=== PATIENT | male | born 1940 | race Caucasian/White ===

== ENCOUNTER 2019-07-12 16:12 | Outpatient (CLI) | payer MEDICARE, SELFPAY ==
--- NOTE | ~2019-07-12 | XR_ITS ---
XR knee LT 3V DATE: 07/12/2019 16:53 INDICATION: Injury yesterday. Bucks a pop. Posterior left knee pain. TECHNIQUE: COMPARISON: None FINDINGS: IMPRESSION: Reviewed, dictated and finalized at location B. RR OPERATOR IMPRESSION:
== END 2019-07-12 16:13 | disposition home or self-care (01) ==
LOC: ANHIMG 16:19
PROVIDERS: PCP Internal Medicine; Visit Provider Internal Medicine
DX: S89.90XA Unspecified injury of unspecified lower leg, initial encounter (principal); X58.XXXA Exposure to other specified factors, initial encounter; M17.12 Unilateral primary osteoarthritis, left knee
CPT/HCPCS: 73562

== ENCOUNTER 2020-01-07 00:01 | Outpatient (CLI) | payer MEDICARE, SELFPAY ==
[2020-01-07 20:43] LABS: SARS-CoV-2 RNA PCR Negative
== END 2020-01-07 00:02 | disposition home or self-care (01) ==
LOC: ANHCOVIDDT 00:02
PROVIDERS: PCP Internal Medicine; Visit Provider Internal Medicine Gastroenterology
DX: Z01.818 Encounter for other preprocedural examination (principal); Z11.59 Encounter for screening for other viral diseases
CPT/HCPCS: 87635; C9803; U0003

== ENCOUNTER 2020-01-10 00:40 | Day surgery (SDC) | payer MEDICARE, SELFPAY ==
[2019-12-28 13:01] VITALS: BMI 23.8
[2020-01-10 06:25] VITALS: BP 132/68; PULSE 69; RESP 16; TEMP 36.3; O2SAT 97
[2020-01-10] MEDS: LACTATED RINGERS 1,000 ML 150 ML IV CONT (07:00)
--- NOTE | 2020-01-10 07:25 | WPDGICN ---
Assessment and Plan Assessment and plan (1) Dysphagia: Code(s): R13.10 - Dysphagia, unspecified Status: Acute Assessment and Plan: Patient complains difficulty swallowing. Solids more so than liquids. 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 Continuing anti-reflux measures and PPI is encouraged. (2) GERD without esophagitis: Code(s): K21.9 - Gastro-esophageal reflux disease without esophagitis Status: Acute GI Consult Note Consult date/time: 01/10/20 07:25 HPI: Marky Arroyo is a 79 year old male Seen in evaluation at the request of Dr. Eduardo Marin. patient complains of difficulty swallowing. He will notice food catching in mid substernal portion of the chest. It is typically solids more so than liquids he denies any bleeding or weight loss. He does have a past medical history of esophageal web dilated 2017. Patient currently denies any heartburn. His family history noncontributory. Current medications include omeprazole 20 mg p.o. daily. Past medical history is significant for atrial fibrillation. Review of Systems Review of Systems: All systems reviewed & are unremarkable except as noted in HPI and below PMFSH Past Medical History Medical History Bronchitis CHF (congestive heart failure) <35% Emphysema of lung Episode of anxiety GERD without esophagitis Heart disease, unspecified MARLENY (obstructive sleep apnea) Presence of cardiac pacemaker Pulmonary nodules Surgical History Surgical History History of arthroscopic knee surgery History of repair of rotator cuff Family History Family History Grandparent Family history of cardiovascular disease, Onset Age: 80 Cerebrovascular accident, Onset Age: 83 Family history of heart disease in male family member before age 55, Onset Age: 78 Mother Family history of cardiovascular disease, Onset Age: 96 Patient's mother is , Onset Age: 95 Family history of heart disease in male family member before age 55, Onset Age: 95 Father Cerebrovascular accident, Onset Age: 88 Family history of Alzheimer's disease, Onset Age: 87 Family history of heart disease in male family member before age 55, Onset Age: 87 Patient's father is , Onset Age: 87 Sibling Patient's sister is in good health Malignant neoplasm of prostate Patient's brother is Social History Social History Smoking status: Former smoker Second hand tobacco smoke exposure: No Smoking end date: 06/09/02 Alcohol intake: current Meds Home Medications and Allergies Home Medications Medication Instructions Recorded Confirmed Type albuterol sulfate 90 mcg/actuation 1 inhalation INHALATION .q4-6 PRN 06/28/19 01/10/20 History aerosol inhaler gm coenzyme Q10 100 mg capsule 100 mg PO DAILY 06/28/19 01/10/20 History tadalafil 20 mg tablet 20 mg PO DAILY PRN 06/28/19 01/10/20 History apixaban 5 mg tablet 5 mg PO BID 06/29/19 01/10/20 History omeprazole 20 mg PO DAILY 12/28/19 01/10/20 History Allergies Allergy/AdvReac Type Severity Reaction Status Date / Time diclofenac Allergy Unknown Diarrhea Verified 01/10/20 06:32 DICLOFENAC SODIUM AdvReac Severe SEVERE GI Uncoded 01/10/20 06:32 UPSET Exam Narrative: Exam Narrative: Physical exam reveals patient to be alert. Vital signs stable. HEENT exam unremarkable. Lungs are clear to auscultation and percussion. Heart is without murmur or extra sounds. Abdominal exam bowel sounds are present soft nontender with no hepatosplenomegaly. Digital external rectal exam deferred tod
[2020-01-10 07:37] VITALS: BP 145/85; PULSE 65; RESP 27; O2SAT 95
[2020-01-10 07:50] VITALS: BP 118/69; PULSE 61; RESP 22; O2SAT 96
[2020-01-10 07:57] VITALS: BP 132/79; PULSE 63; RESP 22; O2SAT 97
== END 2020-01-10 08:12 | disposition home or self-care (01) ==
PROVIDERS: PCP Internal Medicine; Visit Provider Internal Medicine Gastroenterology
PROC: 0DJ08ZZ Inspection of Upper Intestinal Tract, Via Natural or Artificial Opening Endoscopic (ICD-10-PCS; CPT 43235; principal; 2020-01-10 07:30)
DX: Q39.4 Esophageal web (principal); K21.9 Gastro-esophageal reflux disease without esophagitis; K44.9 Diaphragmatic hernia without obstruction or gangrene; I50.9 Heart failure, unspecified; J43.9 Emphysema, unspecified; G47.33 Obstructive sleep apnea (adult) (pediatric); Z87.891 Personal history of nicotine dependence; Z79.899 Other long term (current) drug therapy; Z79.51 Long term (current) use of inhaled steroids; Z95.0 Presence of cardiac pacemaker
CPT/HCPCS: 43450; J2704; J7120

== ENCOUNTER 2020-04-21 13:44 | Outpatient (CLI) | payer MEDICARE, SELFPAY ==
--- NOTE | ~2020-04-21 | DEXA_ITS ---
Bone Density Report Name: Marky Arroyo Age: 79 Sex: Male Ethnicity: White Date of : 1940 Indication: osteopenia; height loss; cancer; asthma or emphysema; Referring Provider: HERB LOU Study: Bone densitometry was performed. Exam Date: April 21, 2020 Accession number: [id number] Bone Density: Region BMD T-score Z-score Classification AP Spine (L2, L3) 1.086 -0.1 1.0 Normal Femoral Neck (Left) 0.662 -2.0 -0.5 Osteopenia Total Hip (Left) 0.733 -2.0 -1.0 Osteopenia Total Hip Bilateral Avg 0.746 -1.9 -0.9 Osteopenia Femoral Neck (Right) 0.639 -2.1 -0.6 Osteopenia Total Hip (Right) 0.758 -1.8 -0.8 Osteopenia World Health Organization criteria for BMD impression classify patients as: Normal (T-score at or above -1.0), Osteopenia (T-score between -1.0 and -2.5), or Osteoporosis (T-score at or below -2.5). 10-year Fracture Risk(1): Major Osteoporotic Fracture 9.0% Hip Fracture 3.7% Reported Risk Factors: [place] (), Neck BMD=0.639, BMI=23.2 (1) FRAX(R) Version 3.08. Fracture probability calculated for an untreated patient. Fracture probability may be lower if the patient has received treatment. Previous Exams: Region Exam Age BMD T-score BMD Change BMD Change Date g/cm2 vs Baseline vs Previous AP Spine(L2, L3) 04/21/2020 79 1.086 -0.1 -0.029(-2.6%)* -0.029(-2.6%)* 05/23/2015 74 1.115 0.2 Total Hip(Left) 04/21/2020 79 0.733 -2.0 -0.082(-10.1%) -0.082(-10.1%) 05/23/2015 74 0.815 -1.4 Total Hip(Right) 04/21/2020 79 0.758 -1.8 -0.018(-2.3%) -0.018(-2.3%) 05/23/2015 74 0.776 -1.7 *Denotes significance at 95% confidence level, LSC for AP Spine = 0.022 g/cm2, LSC for Total Hip = 0.027 g/cm2 Clinical Information Provided by Patient: Has used the following medications: Vitamin D Has the following medical conditions: Asthma or Emphysema, Cancer Patient maximum height was 71 Drinks caffeinated beverages Impression: The patient has low bone mass, based on the Right Femoral Neck T-score. The patient has an estimated ten-year risk of hip fracture of 3.7% and an estimated ten-year risk of major fracture of 9%, based on the WHO FRAX algorithm. The BMD for the AP Spine(L2, L3) decreased, changing by -2.6% since the last DXA exam. The BMD for the Total Hip(Left) decreased, changing by -10.1% since the last DXA exam. Discussion: BONE DENSITY IS LOW AT ONE OR MORE SKELETAL SITES. THE PATIENT'S BMD AND CLINICAL RISK FACTORS
== END 2020-04-21 13:45 | disposition home or self-care (01) ==
LOC: ANHIMG 13:48
PROVIDERS: PCP Internal Medicine; Visit Provider Internal Medicine
DX: M85.852 Other specified disorders of bone density and structure, left thigh (principal); M85.851 Other specified disorders of bone density and structure, right thigh
CPT/HCPCS: 77080

== ENCOUNTER 2020-04-26 16:59 | Outpatient (CLI) | payer MEDICARE, SELFPAY ==
--- NOTE | ~2020-04-26 | XR_ITS ---
EXAMINATION: XR knee LT 3V DATE: 04/26/2020 17:17 INDICATION: Nontraumatic posterior and medial left knee pain TECHNIQUE: Anteroposterior, 2 oblique and crosstable lateral views of the left knee were obtained COMPARISON: 07/12/2019 FINDINGS: Alignment is normal. No fracture. No joint effusion/layering lipohemarthrosis. There is at least mil d to moderate joint space narrowing at the medial compartment which could be underestimated on nonwei ghtbearing imaging. Small patellar marginal osteophytes as well as a tiny central osteophyte along th e apical ridge. Soft tissues are unremarkable. IMPRESSION: 1. 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 Reviewed, dictated and finalized at location H. STRATE JUDGE
== END 2020-04-26 17:00 | disposition home or self-care (01) ==
PROVIDERS: PCP Internal Medicine; Visit Provider Internal Medicine
DX: M17.12 Unilateral primary osteoarthritis, left knee (principal)
CPT/HCPCS: 73562

== ENCOUNTER 2020-06-19 00:54 | Outpatient (CLI) | payer MEDICARE, SELFPAY ==
[2020-06-19 19:06] LABS: SARS-CoV-2 RNA PCR Negative
== END 2020-06-19 00:55 | disposition home or self-care (01) ==
LOC: ANHCOVIDDT 00:54
PROVIDERS: PCP Internal Medicine; Visit Provider Surgery Plastic and Reconstructive Surgery
DX: Z01.812 Encounter for preprocedural laboratory examination (principal); Z20.822 Contact with and (suspected) exposure to COVID-19
CPT/HCPCS: C9803; U0003

== ENCOUNTER 2020-06-22 00:54 | Day surgery (SDC) | payer MEDICARE, SELFPAY ==
[2020-06-14 10:27] VITALS: BMI 23.8
[2020-06-22 09:12] VITALS: BP 132/102; PULSE 80; RESP 20; TEMP 37.1; O2SAT 98
[2020-06-22] MEDS: LACTATED RINGERS 1,000 ML 30 ML IV CONT (09:25)
--- NOTE | 2020-06-22 09:57 | WPDHPUPDATE1 ---
History and Physical Update Update Date/Time: 06/22/20 09:57 History and Physical has been reviewed, including an updated exam of the patient. There are NO changes in the patient's condition. Risks, benefits, and alternatives have been discussed and questions answered. Patient agrees to proceed with procedure.
--- NOTE | 2020-06-22 10:01 | WPDANESEPPF ---
Anes - Initial Pre Proc Eval Procedure: Operation Date: 06/22/20 11:00 Proposed Procedures p Excision Of Back Mass - Giancarlo Barahona MD Date/Time: 06/22/20 10:01 Surgeon: Giancarlo Barahona MD Pre Op Diagnosis: Back Mass Patient Data Age: 79 Gender: M Height: 5 ft 9 in Weight: 73 kg Allergies Allergy/AdvReac Type Severity Reaction Status Date / Time DICLOFENAC SODIUM AdvReac Severe SEVERE GI Uncoded 06/14/20 16:58 UPSET Home Medications Medication Instructions Recorded Confirmed Type albuterol sulfate 90 mcg/actuation 1 inhalation INHALATION .q4-6 PRN 06/28/19 06/14/20 History aerosol inhaler gm coenzyme Q10 100 mg capsule 100 mg PO DAILY 06/28/19 06/14/20 History tadalafil 20 mg tablet 20 mg PO DAILY PRN 06/28/19 06/14/20 History apixaban 5 mg tablet 5 mg PO BID 06/29/19 06/14/20 History omeprazole 20 mg PO DAILY 12/28/19 06/14/20 History ascorbic acid (vitamin C) 500 mg 500 mg PO BID cap 04/14/20 06/14/20 History capsule cholecalciferol (vitamin D3) 125 125 mcg PO BID 04/14/20 06/14/20 History mcg (5,000 unit) capsule krill oil 500 mg capsule 500 mg PO DAILY 04/14/20 06/14/20 History loratadine 10 mg tablet 10 mg PO DAILY 05/15/20 06/14/20 History acetaminophen 650 mg PO BID 06/14/20 06/14/20 History ondansetron HCl 4 mg tablet 4 mg PO Q6H PRN #30 tablet 06/14/20 Rx vitamin B complex [B 1 tablet PO EVERY OTHER DAY 06/14/20 06/14/20 History Complex-Vitamin B12] Patient hx anesthesia problems: none Family hx anesthesia problems: none PMFSH Past Medical History Medical History Bronchitis CHF (congestive heart failure) <35% Emphysema of lung Episode of anxiety GERD without esophagitis Heart disease, unspecified MARLENY (obstructive sleep apnea) Presence of cardiac pacemaker Pulmonary nodules Surgical History Surgical History History of arthroscopic knee surgery History of repair of rotator cuff Family History Family History Grandparent Family history of cardiovascular disease, Onset Age: 80 Cerebrovascular accident, Onset Age: 83 Family history of heart disease in male family member before age 55, Onset Age: 78 Mother Family history of cardiovascular disease, Onset Age: 96 Patient's mother is , Onset Age: 95 Family history of heart disease in male family member before age 55, Onset Age: 95 Father Cerebrovascular accident, Onset Age: 88 Family history of Alzheimer's disease, Onset Age: 87 Family history of heart disease in male family member before age 55, Onset Age: 87 Patient's father is , Onset Age: 87 Sibling Patient's sister is in good health Malignant neoplasm of prostate Patient's brother is Social History Social History Smoking packs per day: 1 Smoking cigarettes per day: 20.0 Years smoked: 50 Smoking pack-years: 50.00 Smoking status: Former smoker Tobacco type: cigarettes Second hand tobacco smoke exposure: No Smoking end date: 12/07/02 Alcohol intake: current Drinks per week: 1 Alcohol use details: 1 GLASS WINE/WEEK Substance use: never Living arrangements: with family Additional living arrangements comments: Spiritual care concerns: No Anes - Eval Final PreProcedure Day of Procedure 06/22/20 10:01 Patient weight: normal Heart: regular rate and rhythm Lungs: clear to auscultation Airway: Mallampati scale class II Neurological: alert and oriented Last oral intake: >/= 8 hours ASA classification: III Emergent: no Anesthetic plan: proceed Anesthesia type and monitoring: general GIVS and standard monitoring Informed Consent: The patient's anesthetic plan and its attendant risks and benefits were discussed with amrik
--- NOTE | 2020-06-22 10:05 | PM.PROC ---
Procedure Note - Detailed Date of procedure: 06/22/20 Pre-op diagnosis: Back Mass Post-op diagnosis: same Procedure performed: 1. Excision subcutaneous upper back mass 11 cm 2. Intermediate closure upper back cm Description of procedure: Patient was marked in the preoperative holding area with his verification. Risks, benefits, alternatives were discussed again today in great detail. Also discussed aftercare. All questions answered to his satisfaction and consent obtained. He was taken to the operating room placed in the lateral decubitus position on the operating room table. Anesthesia was provided by anesthesiology and he was prepped and draped in a standard sterile fashion. Surgical time-out was taken. 1% lidocaine and 0.25% Marcaine with epinephrine was used anesthetize locally. A 15 blade used to make an incision over the mass. Dissection was continued until it was identified incompletely removed under direct visualization with no evidence of neurovascular, tendon, or other structure injury. This was closed in many layers to obliterate all space using 2-0 Vicryl followed by 3-0 Monocryl in a running subcuticular 4-0 Monocryl and finally tissue glue. He tolerated well. Awoke and taken to the PACU without difficulty. All instrument sponge counts were correct at the end of the case. Anesthesia: MAC Surgeon: Giancarlo Barahona MD Estimated blood loss (mL): 5 Drains: No Packing: No Pathology: yes (Upper back mass) Complications: No immediate complications Condition: stable Disposition: PACU Findings: Clinical findings consistent with lipoma
[2020-06-22] MEDS: ceFAZolin 2 GM/D5W 50 ML 2 GM/50 ML BAG IVPB (10:08)
[2020-06-22 10:58] VITALS: BP 78/42; PULSE 61; RESP 14; O2SAT 96
[2020-06-22 11:28] VITALS: BP 85/48; PULSE 70; RESP 14; O2SAT 96
[2020-06-22 11:58] VITALS: BP 88/53; PULSE 59; RESP 14
[2020-06-22 12:15] VITALS: BP 103/55; PULSE 59; RESP 14
== END 2020-06-22 12:25 | disposition home or self-care (01) ==
PROVIDERS: PCP Internal Medicine; Visit Provider Surgery Plastic and Reconstructive Surgery
PROC: (CPT 21931; principal; 2020-06-22 11:00)
DX: D17.1 Benign lipomatous neoplasm of skin and subcutaneous tissue of trunk (principal); L82.1 Other seborrheic keratosis; I50.9 Heart failure, unspecified; J43.9 Emphysema, unspecified; K21.9 Gastro-esophageal reflux disease without esophagitis; G47.33 Obstructive sleep apnea (adult) (pediatric); Z95.0 Presence of cardiac pacemaker; Z79.01 Long term (current) use of anticoagulants; Z87.891 Personal history of nicotine dependence
CPT/HCPCS: 21931; 88304; C9803; J0690; J2704; J3010; J7120; U0003

== ENCOUNTER 2021-06-04 01:10 | Day surgery (SDC) | payer MEDICARE, SELFPAY ==
[2021-05-18 16:11] VITALS: BMI 23.8
[2021-06-04 08:30] VITALS: BP 138/81; PULSE 85; RESP 20; TEMP 36.2; O2SAT 98; BMI 22.0
[2021-06-04] MEDS: LACTATED RINGERS 1,000 ML 150 ML IV CONT (08:37)
--- NOTE | 2021-06-04 08:39 | WPDGICN ---
Assessment and Plan Assessment and plan (1) History of colon cancer: Code(s): Z85.038 - Personal history of other malignant neoplasm of large intestine Status: Acute Assessment and Plan: Patient with a history of colon cancer resected in treated felt cured. Plan is for surveillance colonoscopy every 3-5 years. Further recommendations after endoscopy. (2) GERD without esophagitis: Code(s): K21.9 - Gastro-esophageal reflux disease without esophagitis Status: Acute Assessment and Plan: Patient has stable GE reflux. Required esophageal dilatation 2019 1 year ago. Currently stable with no hindrance. Continue anti-reflux measures and acid suppression. GI Consult Note Consult date/time: 06/04/21 08:39 HPI: Marky Arroyo is a 80 year old male Presents for screening colonoscopy. Patient has a history of colon cancer initially identified in the year 1999. He currently is felt free of disease. Most recent colonoscopy was 3 years ago. Patient reports his current weight appetite bowel movements are normal. In 2019 had esophageal web that was benign and require dilatation. Currently eats well with no hindrance. He presents today for screening colonoscopy. Review of Systems Review of Systems: All systems reviewed & are unremarkable except as noted in HPI and below PMFSH Past Medical History Medical History Bronchitis CHF (congestive heart failure) <35% Emphysema of lung Episode of anxiety GERD without esophagitis Heart disease, unspecified MARLENY (obstructive sleep apnea) Presence of cardiac pacemaker Pulmonary nodules Surgical History Surgical History History of arthroscopic knee surgery History of repair of rotator cuff Family History Family History Grandparent Family history of cardiovascular disease, Onset Age: 80 Cerebrovascular accident, Onset Age: 83 Family history of heart disease in male family member before age 55, Onset Age: 78 Mother Family history of cardiovascular disease, Onset Age: 96 Patient's mother is , Onset Age: 95 Family history of heart disease in male family member before age 55, Onset Age: 95 Father Cerebrovascular accident, Onset Age: 88 Family history of Alzheimer's disease, Onset Age: 87 Family history of heart disease in male family member before age 55, Onset Age: 87 Patient's father is , Onset Age: 87 Sibling Patient's sister is in good health Malignant neoplasm of prostate Patient's brother is Social History Social History Smoking packs per day: 1 Smoking cigarettes per day: 20.0 Years smoked: 50 Smoking pack-years: 50.00 Smoking status: Former smoker Tobacco type: cigarettes Second hand tobacco smoke exposure: No Smoking end date: 12/07/02 Alcohol intake: current Drinks per week: 1 Alcohol use details: 1 GLASS WINE/WEEK Substance use: never Substance use type: does not use Living arrangements: with family Additional living arrangements comments: Spiritual care concerns: No Meds Home Medications and Allergies Home Medications Medication Instructions Recorded Confirmed Type coenzyme Q10 100 mg capsule 100 mg PO DAILY 06/28/19 05/18/21 History tadalafil 20 mg tablet 20 mg PO DAILY PRN 06/28/19 05/18/21 History apixaban 5 mg tablet 5 mg PO BID 06/29/19 05/18/21 History ascorbic acid (vitamin C) 500 mg 1,000 mg PO BID cap 04/14/20 05/18/21 History capsule krill oil 500 mg capsule 350 mg PO DAILY 04/14/20 05/18/21 History albuterol sulfate 90 mcg/actuation 1 inh INHALATION .q4-6 PRN #8.5 g 09/18/20 05/18/21 Rx aerosol inhaler vitamin B complex 1 tablet PO EVERY OTHER
--- NOTE | 2021-06-04 08:39 | WPDANESEPPF ---
Anes - Initial Pre Proc Eval Procedure: Operation Date: 06/04/21 09:30 Proposed Procedures p Screening Colonoscopy - Jaron Keating MD Date/Time: 06/04/21 08:39 Surgeon: Jaron Keating MD Pre Op Diagnosis: hx of colon ca Patient Data Age: 80 Gender: M Height: 1.75 m Weight: 67.8 kg Last Vital Signs Temp 36.2 C L 06/04/21 08:30 Pulse 85 06/04/21 08:30 Resp 20 06/04/21 08:30 BP 138/81 06/04/21 08:30 Pulse Ox 98 06/04/21 08:30 Allergies Allergy/AdvReac Type Severity Reaction Status Date / Time DICLOFENAC SODIUM AdvReac Severe SEVERE GI Uncoded 06/04/21 08:28 UPSET Home Medications Medication Instructions Recorded Confirmed Type coenzyme Q10 100 mg capsule 100 mg PO DAILY 06/28/19 05/18/21 History tadalafil 20 mg tablet 20 mg PO DAILY PRN 06/28/19 05/18/21 History apixaban 5 mg tablet 5 mg PO BID 06/29/19 05/18/21 History ascorbic acid (vitamin C) 500 mg 1,000 mg PO BID cap 04/14/20 05/18/21 History capsule krill oil 500 mg capsule 350 mg PO DAILY 04/14/20 05/18/21 History albuterol sulfate 90 mcg/actuation 1 inh INHALATION .q4-6 PRN #8.5 g 09/18/20 05/18/21 Rx aerosol inhaler vitamin B complex 1 tablet PO EVERY OTHER DAY 09/18/20 05/18/21 History cholecalciferol (vitamin D3) 125 125 mcg PO DAILY cap 10/24/20 05/18/21 History mcg (5,000 unit) capsule omeprazole 20 mg capsule,delayed 40 mg PO DAILY #30 cap 04/18/21 05/18/21 Rx release testosterone 20.25 mg/1.25 gram 1 pump TOPICAL DAILY #75 g 05/21/21 Rx (1.62 %) transdermal gel pump Patient hx anesthesia problems: none Family hx anesthesia problems: none Results Review: All pre-operative results and documents have been reviewed as part of the pre-operative evaluation. [facility] Past Medical History Medical History Bronchitis CHF (congestive heart failure) <35% Emphysema of lung Episode of anxiety GERD without esophagitis Heart disease, unspecified MARLENY (obstructive sleep apnea) Presence of cardiac pacemaker Pulmonary nodules Surgical History Surgical History History of arthroscopic knee surgery History of repair of rotator cuff Family History Family History Grandparent Family history of cardiovascular disease, Onset Age: 80 Cerebrovascular accident, Onset Age: 83 Family history of heart disease in male family member before age 55, Onset Age: 78 Mother Family history of cardiovascular disease, Onset Age: 96 Patient's mother is , Onset Age: 95 Family history of heart disease in male family member before age 55, Onset Age: 95 Father Cerebrovascular accident, Onset Age: 88 Family history of Alzheimer's disease, Onset Age: 87 Family history of heart disease in male family member before age 55, Onset Age: 87 Patient's father is , Onset Age: 87 Sibling Patient's sister is in good health Malignant neoplasm of prostate Patient's brother is Social History Social History Smoking packs per day: 1 Smoking cigarettes per day: 20.0 Years smoked: 50 Smoking pack-years: 50.00 Smoking status: Former smoker Tobacco type: cigarettes Second hand tobacco smoke exposure: No Smoking end date: 12/07/02 Alcohol intake: current Drinks per week: 1 Alcohol use details: 1 GLASS WINE/WEEK Substance use: never Substance use type: does not use Living arrangements: with family Additional living arrangements comments: Spiritual care concerns: No Anes - Eval Final PreProcedure Day of Procedure 06/04/21 08:39 Patient weight: normal Heart: regular rate and rhythm Lungs: clear to auscultation Airway: Mallampati scale class II Neurological: alert and oriented Last oral intake: >/
[2021-06-04 09:27] VITALS: BP 90/55; PULSE 74; RESP 20; O2SAT 99
[2021-06-04 09:37] VITALS: BP 98/60; PULSE 77; RESP 23; O2SAT 96
[2021-06-04 09:47] VITALS: BP 113/68; PULSE 78; RESP 15; O2SAT 97
== END 2021-06-04 10:13 | disposition home or self-care (01) ==
PROVIDERS: PCP Internal Medicine; Visit Provider Internal Medicine Gastroenterology
PROC: 0DJD8ZZ Inspection of Lower Intestinal Tract, Via Natural or Artificial Opening Endoscopic (ICD-10-PCS; CPT 45378; principal; 2021-06-04 09:30)
DX: Z12.11 Encounter for screening for malignant neoplasm of colon (principal); K63.5 Polyp of colon; K64.8 Other hemorrhoids; K57.30 Diverticulosis of large intestine without perforation or abscess without bleeding; Z98.0 Intestinal bypass and anastomosis status; Z90.49 Acquired absence of other specified parts of digestive tract; Z85.038 Personal history of other malignant neoplasm of large intestine; K21.9 Gastro-esophageal reflux disease without esophagitis; I50.9 Heart failure, unspecified; G47.33 Obstructive sleep apnea (adult) (pediatric); Z87.891 Personal history of nicotine dependence; Z79.01 Long term (current) use of anticoagulants; Z79.51 Long term (current) use of inhaled steroids
CPT/HCPCS: 45385; 88305; J2704; J7120

== ENCOUNTER 2022-06-03 12:30 | Emergency (ER) | payer MEDICARE, SELFPAY ==
--- NOTE | ~2022-06-03 | XR_ITS ---
EXAMINATION: XR chest 2V Exam Date/Time: 06/03/2022 15:18 HEALTH CARE TECHNICIAN HISTORY: cough with sob Comparison: 03/29/2019. RESULT: Lines, tubes, and devices: Left chest pacer with intact leads. Lungs and pleura: Senescent change. No focal consolidation, pneumothorax, or large effusion. Subtle infrahilar nodular opacity in the lateral view. Cardiomediastinal silhouette: Stable. Other: No acute osseous or upper abdominal finding. IMPRESSION: No acute cardiopulmonary process. Question of hilar lymphadenopathy, recommend nonemergent, but timel y outpatient CT of the chest without and with contrast for further evaluation. Reviewed, dictated and finalized at location K. TH CARE TECHNICIAN IMPRESSION: No acute cardiopulmonary process. Question of hilar lymphadenopathy, recommend nonemergent, but timely outpatient CT of the chest without and with contrast fo r further evaluation.
[2022-06-03 13:46] VITALS: BP 130/55; PULSE 77; RESP 18; TEMP 36.6; O2SAT 98
--- NOTE | 2022-06-03 15:17 | ED.URI ---
HPI - URI/Sore Throat General Chief Complaint: Upper Respiratory Infection Stated Complaint: cough,congestion Time Seen by Provider: 06/03/22 15:17 Source: patient Mode of arrival: ambulatory Limitations: no limitations History of Present Illness HPI Narrative: 81-year-old male presents with complaint of cough for 4-5 days. Afebrile. States otherwise feeling fine. Taking Tessalon Perles from his primary care physician with no relief. Prescription was called in over the phone. Patient did not see his doctor in the office. States I am use she is getting a Z-Alfie for the step to things to help me feel better . Denies chest pain shortness breath. States that he has a coughing fit and cough something up and Then can go several hours without coughing. All systems reviewed and negative except as noted above. Related Data Home Medications Medication Instructions Recorded Confirmed coenzyme Q10 100 mg capsule (Co 100 mg PO DAILY 06/28/19 06/03/22 Q-10) tadalafil 20 mg tablet (Cialis) 20 mg PO DAILY PRN Erectile 06/28/19 06/03/22 Dysfunction apixaban 5 mg tablet (Eliquis) 5 mg PO BID 06/29/19 06/03/22 ascorbic acid (vitamin C) 500 mg 1,000 mg PO BID 04/14/20 06/03/22 capsule krill oil 500 mg capsule 350 mg PO DAILY 04/14/20 06/03/22 vitamin B complex (B 1 tablet PO EVERY OTHER DAY 09/18/20 06/03/22 Complex-Vitamin B12 tablet) cholecalciferol (vitamin D3) 125 125 mcg PO DAILY 10/24/20 06/03/22 mcg (5,000 unit) capsule Allergies Allergy/AdvReac Type Severity Reaction Status Date / Time DICLOFENAC SODIUM AdvReac Severe SEVERE GI Uncoded 06/03/22 15:10 UPSET Review of Systems Review of Systems: CONSTITUTIONAL: Denies fever, chills, or sweats. EYES: Denies visual changes, redness, or discharge. ENT: Denies rhinorrhea, congestion, sore throat, or otalgia. CARDIOVASCULAR: Denies chest pain, palpitations, or edema. RESPIRATORY: Reports cough. Denies dyspnea. GASTROINTESTINAL: Denies abdominal pain, nausea, vomiting, or diarrhea. GENITOURINARY: Denies dysuria or hematuria. SKIN: Denies rash or itching. MUSCULOSKELETAL: Denies back pain, joint pain, or myalgia. NEUROLOGIC: Denies headache, numbness, or weakness. PSYCHIATRIC: Denies anxiety or depression. All other systems reviewed are negative, except as documented in HPI. [facility] Past Medical History Medical History (Updated 06/03/22 @ 16:00 by Ramona Vincent NP) Bronchitis CHF (congestive heart failure) <35% Emphysema of lung Episode of anxiety GERD without esophagitis Heart disease, unspecified MARLENY (obstructive sleep apnea) Presence of cardiac pacemaker Pulmonary nodules SVT (supraventricular tachycardia) TIA (transient ischemic attack) Surgical History Surgical History History of arthroscopic knee surgery History of repair of rotator cuff Family History Family History Grandparent Family history of cardiovascular disease, Onset Age: 80 Cerebrovascular accident, Onset Age: 83 Family history of heart disease in male family member before age 55, Onset Age: 78 Mother Family history of cardiovascular disease, Onset Age: 96 Patient's mother is , Onset Age: 95 Family history of heart disease in male family member before age 55, Onset Age: 95 Father Cerebrovascular accident, Onset Age: 88 Family history of Alzheimer's disease, Onset Age: 87 Family history of heart disease in male family member before age 55, Onset Age: 87 Patient's father is , Onset Age: 87 Sibling Patient's sister is in good health Malignant neoplasm of prostate Patient's brother is Social History Social History Smoking packs per day: 1 Smoking cigarettes per day: 20.0 Years smoked: 50 Smoking pack-years: 5
== END 2022-06-03 16:02 | disposition home or self-care (01) ==
PROVIDERS: Emergency Provider Nurse Practitioner Family; PCP Internal Medicine
DX: J06.9 Acute upper respiratory infection, unspecified (principal); Z87.891 Personal history of nicotine dependence; K21.9 Gastro-esophageal reflux disease without esophagitis; Z95.0 Presence of cardiac pacemaker; Z86.73 Personal history of transient ischemic attack (TIA), and cerebral infarction without residual deficits; I50.9 Heart failure, unspecified
CPT/HCPCS: 71046; 99213; G0463

== ENCOUNTER 2022-06-21 09:47 | Outpatient (CLI) | payer MEDICARE, SELFPAY ==
--- NOTE | ~2022-06-21 | CT_ITS ---
EXAMINATION: CT diagnostic chest w con DATE: 06/21/2022 10:21 INDICATION: Abnormal chest radiograph TECHNIQUE: Transaxial computed tomographic images of the chest were obtained after the administration of 75 cc of Omnipaque 350 intravenous contrast. The dose-length product (DLP) was 201.10 mGy-cm. Ite rative reconstruction was used. COMPARISON: 07/29/2017 FINDINGS: There is moderate emphysema. No suspicious CT correlate is identified for the questionable hilar fullness described on the chest radiograph. No pathologically enlarged thoracic lymph nodes are identified. The heart size is normal. There is calcified coronary artery atherosclerosis. No pleural effusion or pneumothorax. The gallbladder is surgically absent. There is severe lower cervical and l ower thoracic spondylosis. A dual-lead pacemaker of the left chest wall is noted. IMPRESSION: 1. No suspicious correlate for the hilar lymphadenopathy questioned on recent chest radiograph. 2. Moderate emphysema. Reviewed, dictated and finalized at location B. S LINED TANK REPAIRER IMPRESSION: 1. No suspicious correlate for the hilar lymphadenopathy questioned on recent c hest radiograph. 2. Moderate emphysema.
[2022-06-21 10:17] LABS: Estimated Glomerular Filt Rate 49
== END 2022-06-21 09:48 | disposition home or self-care (01) ==
PROVIDERS: PCP Internal Medicine; Visit Provider Internal Medicine
DX: R93.89 Abnormal findings on diagnostic imaging of other specified body structures (principal); J43.9 Emphysema, unspecified
CPT/HCPCS: 71260; Q9967

== ENCOUNTER 2023-02-02 21:49 | Observation (INO) | payer MEDICARE, SELFPAY ==
--- NOTE | ~2023-02-02 | XR_ITS ---
Clinical Indication: Shortness of breath AP and lateral views of the chest: Comparison: 06/03/2022 Findings: The lungs are clear, without evidence of focal consolidation or pleural effusion. Cardiome diastinal silhouette is stable, with pacemaker device. Bones and soft tissues are unremarkable. Impression: Clear lungs. Pacemaker device. Reviewed, dictated and finalized at location . Impression: Clear lungs. Pacemaker device.
[2023-02-02 21:50] VITALS: BP 164/74; PULSE 75; RESP 22; TEMP 36.3; O2SAT 99
--- NOTE | 2023-02-02 21:53 | ECG_ITS ---
Measurements Intervals [place] Rate: 64 P: CT: 0 QRS: -74 QRSD: 153 T: 101 QT: 411 QTc: 425 Interpretive Statements ATRIAL FLUTTER WITH OCCASIONALELECTRONIC VENTRICULAR PACEMAKER RIGHT BUNDLE BRANCH BLOCK ABNORMAL RHYTHM ECG COMPARED TO ECG 02/01/2019 14:17:23 NO SIGNIFICANT CHANGES Electronically Signed On 02-03-2023 12:00:16 CDT by Artie Moss M.D.
[2023-02-02 22:06] VITALS: PULSE 62; RESP 20; O2SAT 96
[2023-02-02 22:16] LABS: Basophils Percent Auto 0.3 % (0.2-1.2); Eosinophils Absolute Auto 0.2 K/mm3 (0-0.3); Eosinophils Percent Auto 2.4 % (0-4.4); Hematocrit 45.2 % (42.0-52.0); Hemoglobin 15.1 g/dL (14.0-18.0); Immature Granulocyte Absolute 0.03 K/mm3 (0.00-0.031); Immature Granulocyte Percent A 0.4 % (0-0.5); Lymphocytes Absolute Auto 1.48 K/mm3 (0.9-3.2); Lymphocytes Percent Auto 22.1 % (18.3-44.2); Mean Corpuscular HGB Conc 33.4 g/dl (32-36); Mean Corpuscular Hemoglobin 32.5 pg (26-34); Mean Corpuscular Volume 97.4 fl (80-100); Mean Platelet Volume 9.4 fl (7.4-10.4); Monocytes Absolute Auto 0.6 K/mm3 (0.1-0.6); Monocytes Percent Auto 8.4 % (2.6-8.5); Neutrophils Absolute Auto 4.4 K/mm3 (1.3-6.7); Neutrophils Percent Auto 66.4 % (45.5-73.1); Platelet Count Result 231 k/mm3 (150-375); Red Blood Count 4.64 M/mm3 (4.6-6.20); Red Cell Distribution Width 12.7 % (11.5-14.5); White Blood Count 6.7 K/mm3 (4.5-10.0)
[2023-02-02 22:52] LABS: Alanine Aminotransferase 19 U/L (6-50); Albumin Level 3.9 g/dL (3.5-5.1); Alkaline Phosphatase 38 U/L (38-126); Anion Gap 5 mmol/L (8-16); Aspartate Amino Transferase 27 U/L (17-59); Bilirubin,Total 0.7 mg/dL (0.2-1.3); Blood Urea Nitrogen 17 mg/dL (9-20); Calcium 8.9 mg/dL (8.4-10.2); Carbon Dioxide 24 mmol/L (22-30); Chloride 104 mmol/L (98-107); Estimated CRCL calculation 46 ml/min; Estimated Glomerular Filt Rate > 60; Glucose 104 mg/dL (65-110); Potassium 4.3 mmol/L (3.4-5.0); Sodium 133 mmol/L (137-145)
[2023-02-02 23:10] VITALS: BP 128/64; PULSE 61; RESP 22; O2SAT 95
[2023-02-02 23:16] LABS: Lactic Acid Reflex 1.2 mmol/L (0.7-2.0); Magnesium 2.3 mg/dL (1.6-2.3)
[2023-02-02 23:20] LABS: INR 1.1; Prothrombin Time 14.5 Seconds (11.1-14.7)
[2023-02-02 23:29] LABS: NT Pro B Type Natriuretic Pept 2890 pg/mL (19.9-100); Troponin I < 0.012 ng/mL (0.000-0.034)
[2023-02-03] VITALS (15 sets, daily range): BP systolic 113–139; BP diastolic 63–90; PULSE 63–83; RESP 16–22; TEMP 36.4–37.3; O2SAT 95–99; BMI 23.1
--- NOTE | 2023-02-03 01:03 | ED.GENADULT ---
HPI - General Adult General Chief complaint: Shortness of Breath/Dyspnea Stated complaint: SOB Time Seen by Provider: 02/02/23 22:01 History of Present Illness HPI narrative: Patient is a 82-year-old gentleman who presents the emergency department with chief complaint of shortness of breath patient reports symptoms began yesterday reports that he has history of COPD also history of atrial fibrillation. The patient reports that his symptoms are worsened with laying down and improved whenever he sits up. Related Data Home Medications Medication Instructions Recorded Confirmed tadalafil 20 mg tablet (Cialis) 20 mg PO DAILY PRN Erectile 06/28/19 12/03/22 Dysfunction apixaban 5 mg tablet (Eliquis) 5 mg PO BID 06/29/19 12/03/22 ascorbic acid (vitamin C) 500 mg 1,000 mg PO BID 04/14/20 12/03/22 capsule krill oil 500 mg capsule 350 mg PO DAILY 04/14/20 12/03/22 cholecalciferol (vitamin D3) 50 50 mcg PO DAILY 07/09/22 12/03/22 mcg (2,000 unit) capsule coenzyme Q10 100 mg capsule (Co 300 mg PO DAILY 07/09/22 12/03/22 Q-10) vitamin B complex (B 1 tablet PO DAILY 07/09/22 12/03/22 Complex-Vitamin B12 tablet) Allergies Allergy/AdvReac Type Severity Reaction Status Date / Time DICLOFENAC SODIUM AdvReac Severe SEVERE GI Uncoded 02/02/23 22:00 UPSET Review of Systems Review of Systems: A 10 system review of systems was completed on the patient and is negative except for what is stated in the HPI. Nursing and ancillary documentation was reviewed. [facility] Past Medical History Medical History Bronchitis CHF (congestive heart failure) <35% Emphysema of lung Episode of anxiety GERD without esophagitis Heart disease, unspecified MARLENY (obstructive sleep apnea) Presence of cardiac pacemaker Pulmonary nodules SVT (supraventricular tachycardia) TIA (transient ischemic attack) Surgical History Surgical History History of arthroscopic knee surgery History of repair of rotator cuff Family History Family History Grandparent Family history of cardiovascular disease, Onset Age: 80 Cerebrovascular accident, Onset Age: 83 Family history of heart disease in male family member before age 55, Onset Age: 78 Mother Family history of cardiovascular disease, Onset Age: 96 Patient's mother is , Onset Age: 95 Family history of heart disease in male family member before age 55, Onset Age: 95 Father Cerebrovascular accident, Onset Age: 88 Family history of Alzheimer's disease, Onset Age: 87 Family history of heart disease in male family member before age 55, Onset Age: 87 Patient's father is , Onset Age: 87 Sibling Patient's sister is in good health Malignant neoplasm of prostate Patient's brother is Social History Social History Smoking packs per day: 1 Smoking cigarettes per day: 20.0 Years smoked: 50 Smoking pack-years: 50.00 Smoking status: Former smoker Tobacco type: cigarettes Second hand tobacco smoke exposure: No Smoking end date: 12/07/02 Alcohol intake: current Drinks per week: 1 Alcohol use details: 1 GLASS WINE/WEEK Substance use: never Substance use type: does not use Lack of Transportation: No Lack of Food: Never True Current Housing: I Have Housing Concerned About Future Housing: No Difficulty Paying Gas/Electric Bills: No Difficulty Paying for Meds: No Currently Unemployed: No Education: Trade/Vocational Certificate Difficulty w/ Childcare or Family Care: No Living arrangements: with family Additional living arrangements comments: Spiritual care concerns: No Exam Narrative: GENERAL: Well-appearing, well-n
--- NOTE | 2023-02-03 01:04 | PM.IMHP ---
H&P: HPI History of Present Illness Date/Time: 02/03/23 01:04 Chief Complaint: sob Narrative: This is an 82-year-old male with past medical history significant for COPD/emphysema, AVNRT, pacemaker, sick sinus syndrome, TIA. Patient presents to the emergency room due to shortness of breath denies any chest pain, palpitations, leg swelling, dizziness, lightheadedness, near-syncope, syncope has been his usual state of health up until this point, denies any sputum production has a dry cough which is mild, no nausea, no vomiting, no abdominal pain, no diarrhea. Preliminary workup was significant for brain natriuretic peptide of 2800 PMFSH Past Medical History Medical History (Updated 02/03/23 @ 03:52 by Lazaro Moyer MD) Bronchitis CHF (congestive heart failure) <35% Emphysema of lung Episode of anxiety GERD without esophagitis Heart disease, unspecified MARLENY (obstructive sleep apnea) Presence of cardiac pacemaker Pulmonary nodules SVT (supraventricular tachycardia) TIA (transient ischemic attack) Surgical History Surgical History History of arthroscopic knee surgery History of repair of rotator cuff Family History Family History (Updated 02/03/23 @ 02:34 by Evelyn Funez RN) Grandparent Family history of heart disease in male family member before age 55, Onset Age: 78 Family history of cardiovascular disease, Onset Age: 80 Cerebrovascular accident, Onset Age: 83 Mother Family history of heart disease in male family member before age 55, Onset Age: 95 Family history of cardiovascular disease, Onset Age: 96 Patient's mother is , Onset Age: 95 Father Family history of heart disease in male family member before age 55, Onset Age: 87 Patient's father is , Onset Age: 87 Family history of Alzheimer's disease, Onset Age: 87 Cerebrovascular accident, Onset Age: 88 Macular degeneration Sibling Malignant neoplasm of prostate Patient's brother is Patient's sister is in good health Family history of cardiovascular disease Macular degeneration Social History Social History Smoking packs per day: 1 Smoking cigarettes per day: 20.0 Years smoked: 50 Smoking pack-years: 50.00 Smoking status: Former smoker Tobacco type: cigarettes Second hand tobacco smoke exposure: No Smoking end date: 12/07/02 Alcohol intake: current Drinks per week: 1 Alcohol use details: 1 GLASS WINE/WEEK Substance use: never Substance use type: does not use Lack of Transportation: No Lack of Food: Never True Current Housing: I Have Housing Concerned About Future Housing: No Difficulty Paying Gas/Electric Bills: No Difficulty Paying for Meds: No Currently Unemployed: No Education: Don't Know Difficulty w/ Childcare or Family Care: No Living arrangements: with family Additional living arrangements comments: Spiritual care concerns: No Meds Home Medications and Allergies Home Medications Medication Instructions Recorded Confirmed Type tadalafil 20 mg tablet (Cialis) 20 mg PO DAILY PRN Erectile 06/28/19 02/03/23 History Dysfunction apixaban 5 mg tablet (Eliquis) 5 mg PO BID 06/29/19 02/03/23 History ascorbic acid (vitamin C) 500 mg 1,000 mg PO BID 04/14/20 02/03/23 History capsule krill oil 500 mg capsule 350 mg PO DAILY 04/14/20 02/03/23 History cholecalciferol (vitamin D3) 50 50 mcg PO DAILY 07/09/22 02/03/23 History mcg (2,000 unit) capsule coenzyme Q10 100 mg capsule (Co 300 mg PO DAILY 07/09/22 02/03/23 History Q-10) vitamin B complex (B 1 tablet PO DAILY 07/09/22 02/03/23 History Complex-Vitamin B12 tablet) trazodone 50 mg tablet 50 mg PO QHS PRN insomnia #30 tabs 12/03/22 02/03/23 Rx testosterone (AndroGel) 1 pump topical DAILY #75 grams 12/16/22
[2023-02-03] MEDS: FUROSEMIDE INJ 40 MG/4 ML VIAL IV PUSH ×2 (01:17→08:23)
--- NOTE | 2023-02-03 02:26 | ADMGEN ---
This patient, Marky Arroyo, was admitted to Medical Room 348-01. Patient/family oriented to hospital policies and general routines including ID bracelet, bed and alarms, visiting hours, pain management, procedures, bathroom and other care routines, personal items, smoking policy, room service/diet, and visiting hours. Information on how to activate the Rapid Response Team has been discussed. Patient/Family are encouraged to report perceived risks to care and to ask questions if they do not understand what they are told or what they should do.
[2023-02-03 03:00] LABS: Troponin I < 0.012 ng/mL (0.000-0.034)
[2023-02-03] MEDS: PANTOPRAZOLE 40 MG TABLET PO ×2 (08:22→17:19)
[2023-02-03] MEDS: APIXABAN 5 MG TABLET PO ×2 (08:22→20:21)
--- NOTE | 2023-02-03 11:30 | PM.IMPN ---
Progress Note: A&P Assessment and Plan (1) Acute exacerbation of CHF (congestive heart failure): Qualifiers: Heart failure type: diastolic Qualified Code(s): I50.33 - Acute on chronic diastolic (congestive) heart failure Code(s): I50.9 - Heart failure, unspecified Status: Acute Assessment and Plan: Presented with shortness of breath BNP elevated at 2980 Chest xray shows clear lungs HX of EF of 35% Repeat echo ordered Acute on chronic diastolic heart failure with exacerbation trend urine output daily weights (2) Former smoker: Code(s): Z87.891 - Personal history of nicotine dependence Status: Acute Assessment and Plan: Unchanged No indication for further therapy (3) Emphysema of lung: Qualifiers: Emphysema type: unspecified Qualified Code(s): J43.9 - Emphysema, unspecified Code(s): J43.9 - Emphysema, unspecified Status: Acute Assessment and Plan: Chronic COPD Continue home albuterol No indication for supplemental oxygen Trend respiratory status (4) S/P UPPP (uvulopalatopharyngoplasty): Code(s): Z98.890 - Other specified postprocedural states Status: Acute Assessment and Plan: Continue current therapy Time Spent With Patient Time: 37 minutes Time with patient: Greater than 35 minutes Subjective Date/time seen: 02/03/23 1130 Interval history: patient was walking around the room. Patient was doing fairly well. He denies any chest pain, shortness a breath, nausea, vomiting, diarrhea constipation. Echo was ordered will await for that to be done. It is noted does have an EF of 35% some time. Most of the patient metoprolol, losartan, oral Lasix and hopefully discharge tomorrow. Review of Systems Review of Systems: All systems reviewed & are unremarkable except as noted in HPI and below Exam Narrative: General: well-nourished, well-appearing 82-year-old male, walk in room, comfortable, NARD Neuro: awake, alert and oriented x4, speech clear, no focal neuro deficits noted HEENMT: normocephalic, atraumatic, EOMI, sclerae anicteric, moist oral mucosa Respiratory: Clear to auscultation bilaterally without crackles, rhonchi or wheezes, nonlabored breathing Cardio: regular rate, regular rhythm with S1-S2 Abdomen: nondistended, normoactive bowel sounds, soft, nontender to palpation Extremities: no edema, erythema, or tenderness to palpation, DP pulses 2+ bilaterally Skin: no rashes or lesions, warm and dry Psych: appropriate mood and affect, judgment and insight intact Objective Data Vital Signs Vital Signs: Vital Signs - 24 hr 02/02/23 21:50 02/02/23 22:06 02/02/23 22:07 Temperature 97.4 F L Pulse Rate 75 62 Respiratory Rate 22 H 20 Blood Pressure 164/74 H Pulse Oximetry 99 96 Oxygen Delivery Room Air Room Air 02/02/23 23:10 02/03/23 00:59 02/03/23 01:51 Temperature Pulse Rate 61 64 64 Respiratory Rate 22 H 18 22 H Blood Pressure 128/64 129/75 138/81 Pulse Oximetry 95 96 97 Oxygen Delivery 02/03/23 02:20 02/03/23 04:00 02/03/23 05:40 Temperature 97.5 F L 97.7 F Pulse Rate 64 64 83 Respiratory Rate 20 16 Blood Pressure 139/75 132/72 Pulse Oximetry 99 95 Oxygen Delivery 02/03/23 11:43 02/03/23 11:43 02/03/23 11:58 Temperature Pulse Rate 73 72 Respiratory Rate 18 18 Blood Pressure Pulse Oximetry 97 Oxygen Delivery Room Air 02/03/23 08:22 02/03/23 08:00 02/03/23 12:00 Temperature Pulse Rate 67 69 Respiratory Rate Blood Pressure Pulse Oximetry Oxygen Delivery Room Air 02/03/23 14:00 02/03/23 02:21 Temperature 98.6 F 97.5 F L Pulse Rate 71 Respiratory Rate 18 20 Blood Pressure 113/63 139/75 Pulse Oximetry 96 99 Oxygen Delivery Intake/Output Intake/Output: Intake & Output 01/31/23 02/01/23 02/02/23 02/03/23 23:59 23:59
[2023-02-03] MEDS: IPRATROPIUM BR 0.02% INH SOLN 0.5 MG/2.5 ML VIAL INHALATION (11:41)
[2023-02-03] MEDS: ALBUTEROL SULFATE NEB 2.5 MG/3 ML INH INHALATION (11:41)
--- NOTE | 2023-02-03 11:44 | PC.NURSE ---
Patient feeling short of breath. Helicopter Officer called respiratory for PRN treatments to be administered.
--- NOTE | 2023-02-03 13:00 | ECHO_ITS ---
Patient Info Name: Marky Arroyo Age: 82 years : 1940 Gender: Male Ht: 69 in Wt: 156 lbs BSA: 1.86 m2 HR: 72 bpm BP: 132 / 72 mmHg Heart Rhythm: Paced Technical Quality: Fair Exam Date: 02/03/2023 4:12 PM Exam Location: [facility] Pulmonary Exam Room: [facility] Patient Status: Inpatient Admit Date: 02/03/2023 Staff Ordering Physician: Karan Villalta MD Gun Stocker: Merly Mota RDCS Attending Provider: Lazaro Moyer MD Referring Physician: Pawan HERNANDEZ; Exam Type: CA echo doppler color flow Study Info Indications - acute exacerbation of chf Complete two-dimensional, color flow and Doppler transthoracic echocardiogram is performed. Summary 1. Complete two-dimensional, color flow and Doppler transthoracic echocardiogram is performed. 2. Normal left ventricular size with adequate global systolic function and grade 1 diastolic noncompliance+. 3. Marked biatrial dilation. 4. Electronically paced rhythm with pacemaker leads identified. 5. Mildly sclerotic aortic valve with trivial AI. Left Ventricle Left ventricular chamber dimension is normal. Left ventricular systolic function is normal, estimated at 50-55%. The left ventricular diastolic function is grade I diastolic dysfunction. Right Ventricle Right ventricular chamber dimension is normal. Linear artifact in right ventricle suggestive of catheter(s), pacemaker lead(s), or ICD lead(s). Left Atria Left atrial chamber dimension is severely enlarged. Right Atria Right atrial chamber dimension is severely enlarged. Aortic Valve The aortic valve is trileaflet. There is mild aortic valve sclerosis. There is trace aortic valve regurgitation. Pulmonic Valve The pulmonic valve is not well visualized. Mitral Valve The mitral valve has normal leaflets. The mitral valve annulus is mildly calcified. Tricuspid Valve The tricuspid valve leaflets are normal. There is trace tricuspid valve regurgitation. Pericardium/Pleural The pericardium appears normal. Aorta The aortic root size at the sinus of Valsalva is normal. Left Ventricular Outflow Tract Name Value Normal LVOT 2D LVOT Diameter 2.1 cm LVOT Doppler LVOT Peak Gradient 4 mmHg LVOT Mean Gradient 2 mmHg LVOT VTI 17 cm LVOT VTI/AV VTI Ratio 0.9 LVOT Stroke Volume 60 ml LVOT CO 14.1 l/min LVOT CI 7.6 l/min/m2 Pulmonic Valve Name Value Normal RVOT Doppler RVOT Peak Gradient 2 mmHg PV Doppler PV Peak Gradient 3 mmHg Mitral Valve Name Value Normal
[2023-02-03] MEDS: METOPROLOL TARTRATE 12.5 MG TABLET PO (20:22)
[2023-02-04] VITALS (9 sets, daily range): BP systolic 124–134; BP diastolic 64–68; PULSE 60–115; RESP 18; TEMP 35.9–36.6; O2SAT 92–94
[2023-02-04] MEDS: METOPROLOL TARTRATE 12.5 MG TABLET PO (08:36)
[2023-02-04] MEDS: LOSARTAN POTASSIUM 25 MG TABLET PO (08:36)
[2023-02-04] MEDS: APIXABAN 5 MG TABLET PO (08:36)
[2023-02-04] MEDS: FUROSEMIDE 20 MG TABLET PO (08:36)
[2023-02-04] MEDS: PANTOPRAZOLE 40 MG TABLET PO (08:37)
[2023-02-04] MEDS: UMECLIDINIUM/VILANTEROL 62.5-25 MCG ELLIPTA 1 PUFF INHALATION (09:03)
--- NOTE | 2023-02-04 12:15 | PM.DS ---
DS: Admitting Diagnosis Discharge Date 02/04/23 1215 Admitting Diagnosis Acute CHF exacerbation DS: Discharge Diagnosis Discharge Diagnosis (1) Acute exacerbation of CHF (congestive heart failure): Qualifiers: Heart failure type: diastolic Qualified Code(s): I50.33 - Acute on chronic diastolic (congestive) heart failure Code(s): I50.9 - Heart failure, unspecified Status: Acute Assessment and Plan: Presented with shortness of breath BNP elevated at 2980 Chest xray shows clear lungs HX of EF of 35% Repeat echo EF of 50-55% with a grade 1 diastolic dysfunction Acute on chronic diastolic heart failure with exacerbation trend urine output daily weights (2) Former smoker: Code(s): Z87.891 - Personal history of nicotine dependence Status: Acute Assessment and Plan: Unchanged No indication for further therapy (3) Emphysema of lung: Qualifiers: Emphysema type: unspecified Qualified Code(s): J43.9 - Emphysema, unspecified Code(s): J43.9 - Emphysema, unspecified Status: Acute Assessment and Plan: Chronic COPD Continue home albuterol No indication for supplemental oxygen Trend respiratory status (4) S/P UPPP (uvulopalatopharyngoplasty): Code(s): Z98.890 - Other specified postprocedural states Status: Acute Assessment and Plan: Continue current therapy (5) COPD (chronic obstructive pulmonary disease): Qualifiers: COPD type: emphysema Emphysema type: unspecified Qualified Code(s): J43.9 - Emphysema, unspecified Code(s): J44.9 - Chronic obstructive pulmonary disease, unspecified Status: Acute Assessment and Plan: Start Anoro Ellipta CT of the chest from Jun shows moderate Emphysema Could be contributing to the dyspnea Trend respiratory status DS: Summary Hospital Course Hospital Course: patient 82-year-old male with a past medical history of COPD emphysema, pacemakers, sick sinus syndrome who presented to the ED with complaints of shortness of breath. Chest x-ray showed clear lungs. BNP was elevated at 2980. Patient does have history of a low EF and repeat echo was performed showed an EF of 50-55% with a grade 1 diastolic dysfunction. patient has been getting neb treatments and IV Lasix. Patient does have episodes of shortness of breath however seems to be controlled with inhalers and neb treatments. Currently patient is stable for discharge for labs and vital signs. Patient denies any current chest pain, shortness a breath, nausea, vomiting, diarrhea or constipation. CHF education has been given patient verbalized understanding. Patient was also started on oral up the for COPD control. CT from the chest from June shows emphysema and moderate capacity. Patient did state that he was on Spiriva at home. Will keep him on Spiriva. Also talked to Cardiology as he sees Dr. Simms who recommended that the patient be sent home on 20 mg of Lasix and 12.5mg of Aldactone. Will have the patient follow up with cardiology in a few weeks. Status at Discharge Functional status at discharge: independent ambulation Overall status at discharge: patient is progressing back to baseline Time Spent with Patient Time attestation: Total time spent providing and/or coordinating discharge services:48 minutes Time spent: Greater than 30 minutes Specific discharge activities: Diagnostic testing, chart review, developing a treatment plan, education, care coordination documentation, physical exam, result review Exam Narrative: General: well-nourished, well-appearing 82-year-old male, walk in room, comfortable, NARD Neuro: awake, alert and oriented x4, speech clear, no focal neuro deficits noted HEENMT: normocephalic, atraumatic, EOMI, sclerae anicteric, moist oral mucosa Respiratory: Clear to auscultatio
== END 2023-02-04 16:07 | disposition home or self-care (01) ==
LOC: ANHED 02-03 01:09 → ANH3MED 02-03 06:40
PROVIDERS: Admitting Provider Internal Medicine; Emergency Provider Emergency Medicine; PCP Family Medicine; Visit Provider Internal Medicine
DX: I13.0 Hypertensive heart and chronic kidney disease with heart failure and stage 1 through stage 4 chronic kidney disease, or unspecified chronic kidney disease (principal); I50.33 Acute on chronic diastolic (congestive) heart failure; N18.9 Chronic kidney disease, unspecified; J43.9 Emphysema, unspecified; I48.91 Unspecified atrial fibrillation; F41.9 Anxiety disorder, unspecified; K21.9 Gastro-esophageal reflux disease without esophagitis; I47.1 Supraventricular tachycardia; R94.31 Abnormal electrocardiogram [ECG] [EKG]; G44.329 Chronic post-traumatic headache, not intractable; G47.33 Obstructive sleep apnea (adult) (pediatric); Z95.0 Presence of cardiac pacemaker; N52.9 Male erectile dysfunction, unspecified; G47.00 Insomnia, unspecified; Z79.01 Long term (current) use of anticoagulants; Z79.899 Other long term (current) drug therapy; Z98.890 Other specified postprocedural states; Z87.891 Personal history of nicotine dependence; Z82.49 Family history of ischemic heart disease and other diseases of the circulatory system; Z82.3 Family history of stroke; Z86.73 Personal history of transient ischemic attack (TIA), and cerebral infarction without residual deficits
CPT/HCPCS: 36415; 71046; 80053; 83605; 83735; 83880; 84484; 85025; 85610; 85730; 93005; 93306; 94640; 96374; 96376; 99285; A9270; G0378; J1940

== ENCOUNTER 2023-11-17 11:06 | Outpatient (CLI) | payer MEDICARE, SELFPAY ==
--- NOTE | ~2023-11-17 | XR_ITS ---
Lumbosacral Spine: AP and lateral views Clinical History: Pain COMPARISON: 02/04/2017 Findings: The normal lordotic curve is maintained. No acute fracture seen. There is grade 1 retrolist hesis of L2 over L3. There are severe degenerative disc narrowing and severe facet arthropathy throug hout the lumbar spine. The sacroiliac joints are normally outlined. Impression: Severe degenerative spondylosis, as detailed above. Appearance is overall relatively similar to prior exam. Reviewed, dictated and finalized at location M. Impression: Severe degenerative spondylosis, as detailed above. Appearance is overall relat ively similar to prior exam.
== END 2023-11-17 11:07 ==
PROVIDERS: PCP Family Medicine; Visit Provider Family Medicine
DX: M54.50 Low back pain, unspecified (principal)
CPT/HCPCS: 72100

== ENCOUNTER 2024-01-16 11:01 | Outpatient (CLI) | payer MEDICARE, SELFPAY ==
--- NOTE | ~2024-01-16 | XR_ITS ---
Left Shoulder Technique: AP and scapular Y views were obtained. Clinical History: Pain Findings: No fracture or dislocation is seen. Osseous alignment is anatomic. The glenohumeral and acr omioclavicular joint spaces are preserved. Soft tissues are unremarkable. Impression: Unremarkable left shoulder radiographs. Reviewed, dictated and finalized at [facility]. Impression: Unremarkable left shoulder radiographs.
== END 2024-01-16 11:02 | disposition home or self-care (01) ==
LOC: ANHIMG 11:01
PROVIDERS: PCP Family Medicine; Visit Provider Nurse Practitioner Family
DX: M25.512 Pain in left shoulder (principal)
CPT/HCPCS: 73030

== ENCOUNTER 2024-05-17 10:00 | Outpatient (CLI) | payer MEDICARE, SELFPAY ==
--- NOTE | ~2024-05-17 | XR_ITS ---
XR hip RT 2V w AP pelvis Ordering provider: Raza Serra MD History: . R10.2 - Pelvic and perineal pain . Comparison: None. FINDINGS: BONES: No acute fracture or dislocation. HIP JOINT SPACES: Mild bilateral osteoarthritic changes. SACROILIAC JOINT SPACES/LUMBAR SPINE: The sacroiliac joint spaces shows a right sacroiliitis.. Mild d egenerative changes of the visualized lower lumbar spine. PUBIC SYMPHYSIS: Pubic symphysitis. SOFT TISSUES: Normal. IMPRESSION: No acute osseous abnormality pelvis and right hip. Right sacroiliitis. Reviewed, dictated and finalized at location A. RNSHIP COORDINATOR
== END 2024-05-17 10:01 | disposition home or self-care (01) ==
PROVIDERS: PCP Family Medicine; Visit Provider Family Medicine
DX: M46.1 Sacroiliitis, not elsewhere classified (principal)
CPT/HCPCS: 73502

== ENCOUNTER 2024-06-25 07:57 | Outpatient (CLI) | payer OTHER, SELFPAY ==
--- NOTE | ~2024-06-25 | CT_ITS ---
CT pelvis wo con Ordering provider: Raza Serra MD History: . M70.72 - Other bursitis of hip, left hip . Comparison: None. Technique: CT pelvis without oral and IV contrast. . Automated exposure control and iterative recons truction technique were employed. The dose-length product was 163.88 mGy-cm. Findings: BONES: No pelvic fracture or hip dislocation. Age appropriate degenerative changes of the visualized lower lumbar spine. The sacroiliac joint spaces are well maintained. Sclerotic area seen in the poste rior column of the left acetabulum. Both hips shows no definite joint effusion. Mild to moderate oste oarthritic changes of both hips with narrowing of the joint space is noted. SUPERFICIAL SOFT TISSUES: Normal. PELVIC ORGANS: The bladder is underfilled with thickened wall. Evaluation for cystitis advised. VISUALIZED BOWEL AND MESENTERY: Normal. No free air or free fluid. No lymphadenopathy. RETROPERITONEUM: Mild atheromatous disease. IMPRESSION: No acute osseous abnormality. 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 No joint effusion is seen. Reviewed, dictated and finalized at location A. CAL AFFAIRS MANAGER
--- OUTSIDE RECORDS SUMMARY | 2024-07-01 05:15 | XMS_ITS | Encounter Summary ---
Author Organization [facility] Address [address] [place] [address] Phone Care Team Providers Care Wire Coater Name Role Phone Sawyer Brown MD Primary Care Provider [phone] Eduardo Marin DO Primary Care Provider [phone] Klarissa Kumar Primary Care Provider Raza Christopher MD Primary Care Provider [phone] Encounter Details Date Type Department Care Team (Latest Contact Info) Description 10/16/2017 Orders Only [facility] CONVERSION Scanning, Provider Social History Tobacco Use Types Packs/Day Years Used Date Smoking Tobacco: Former Smokeless Tobacco: Never Alcohol Use Standard Drinks/Week Comments Yes 0 (1 standard drink = 0.6 oz pur e alcohol) Sex and Gender Information Value Date Recorded Sex Assigned at Not on file 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 Gender Identity Male 01/29/2021 1:05 PM CDT Sexual Orientation Straight 01/29/2021 1: 05 PM CDT documented as of this encounter Plan of Treatment Not on file documented as of this encounter Procedures Procedure Name Priority Date/Time Associated Diagnosis Comments PULMONARY FUNCTION TEST (PFT) 10/16/2017 12:39 PM CDT documented in this encounter Results * PULMONARY FUNCTION TEST (PFT) (10/16/2017 12:39 PM CDT) Anatomical Region Laterality Modality PFT us Provider Scanning PFT ORDERABLES Final Result documented in this encounter Visit Diagnoses Not on filedocumented in this encounter Care Teams Wire Coater Relationship Specialty Start Date End Date Sawyer Brown MD PCP - General 09/06/16 10/14/18 Eduardo Marin DO PCP - General 10/15/18 08/18/22 Klarissa Kumar PCP - General Family Medicine 02/03/23 11/03/23 Raza Serra MD PCP - General Family Practice 11/04/23 documented as of this encounter
--- OUTSIDE RECORDS SUMMARY | 2024-07-01 05:15 | XMS_ITS | Referral Summary ---
Author Organization [facility] Address [address] [place] [address] Care Team Providers Care Manager Inventory Control Name Role Phone Eduardo Marin DO Primary Care Provider [phone] Source Comments [facility],non-owned Affiliates and Associated Physician Practices is amultiple site organization consisting of ambulatory clinics and hospital sitesin [place], [place], [place] and [place]. This disclosure is being madepursuant to the Care Everywhere program and may not contain all information available regarding this patient. Last updated 18.[facility] Allergies Active Allergy Reactions Criticality Noted Date Comments Diclofenac Epolamine Diarrhea,Other,Palp it ations High 01/03/2010 Other reaction(s): Nausea only Reaction: DIARRHEA, Reaction: Nausea, ??Loose Stools, ?? Other reaction(s): Nausea only Reaction: DIARRHEA, Reaction: Nausea,?Loose Stools,? Medications * Be aware that medications may not be up to date on this document. Alwaysverify current medications with the patient. Medication Sig Dispensed Refills Start Date End Date Status albuterol HFA (PROAIR HFA) 108 (90 Base) MCG/ACT inhaler Inhale 90 mcg by mouth as needed 01/06/2012 Active apixaban (ELIQUIS) 5 MG tablet Take 1 (one) tablet by mouth 2 times daily 08/03/2018 Active vitamin C (ASCORBIC ACID) 1000 MG tablet Take 0.5 (one-half) tablet by mouth 2 times daily Active tadalafil (CIALIS) 20 MG tablet Take 1 (one) tablet by mouth as needed 09/06/2018 Active cetirizine (ZYRTEC) 10 MG tablet Take 1 (one) tablet by mouth once daily 90 tablet 4 10/05/2018 Active omeprazole (PRILOSEC) 20 MG capsule Take 2 (two) capsules by mouth once daily 04/16/2020 Active Coenzyme Q10 (COQ10) 100 MG Take 100 (one hundred) mg by mouth once daily Active Krill Oil 350 MG CAPS Take 1 capsule by mouth once daily Active Cholecalciferol 125 MCG (5000 UT) Take 1 (one) tablet by mouth once daily Active Cobalamin Combinations (VITAMIN U46-XBRIT ACID) 500-400 MCG Take 1 tablet by mouth once daily Active testosterone (ANDROGEL) 20.25 MG/1.25GM (1.62%) gel testosterone 1.62 % (20.25 mg/1.25 gram) transdermal gel packet APPLY 1 PACKET TOPICALLY ONCE DAILY 09/22/2020 Active empagliflozin (Jardiance) 10 MG tablet Take 1 (one) tablet by mouth once daily 03/18/2023 Active traZODone (Desyrel) 50 MG tablet Take 1 (one) tablet by mouth 12/03/2022 Active Anoro Ellipta 62.5-25 MCG/ACT inhaler Inhale 1 (one) puff by mouth once daily Active Active Problems Problem Noted Date Diagnosed Date CHF (congestive heart failure) 12/01/2023 Chronic diastolic CHF (congestive heart failure) 02/05/2023 Pacemaker 02/05/2023 Osteoarthritis of both knees 08/09/2022 Hiatal hernia 10/23/[address] on CT 10/23/2018 History of cardiac radiofrequency ablation (RFA) 10/23/2018 Goiter 10/05/2018 Wound infection after surgery 03/31/2018 Junctional melanocytic nevus of skin 03/02/2018 SCC (squamous cell carcinoma), hand, left 2017 Sinus node dysfunction 04/09/2016 Transient ischemic attack 11/20/2015 Atrial fibrillation 04/19/2014 Overview (10/05/2018): Overview: Atrial fibrillation 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 (FLUAD QUADRIVALENT; 65Y+) (AIIV4) 02/25/2020 INFLUENZA VACCINE, HIGH-DOSE , QUADR. (FLUZONE HIGH-DOSE QUADRIVALENT; 65Y+), 0.7 ML (HD-IIV4) 03/25/2019 Social History Tobacco Use Types Packs/Day Years Used Date Smoking Tobacco: Former Smokeless Tobacco: Never Alcohol Use Standard Drinks/Week Comments Yes 1 (1 standard drink = 0.6 oz pur e alcohol) PHQ-2 Answer Date Recorded PHQ2 TOTAL SCORE 0 09/30/2022 Sex and Gender Information Value Date Recorded Sex Assigned at Not on file Gender Identity Not on file Sexual Orientation Not on file Last Filed Vital Signs Vital Sign Reading Time Taken Comments Blood Pressure 119/72 12/01/2023 9:30 AM CDT Pulse 76 12/01/2023 9:30 AM CDT Temperature 37 ??C (98.6 ??F) 09/30/2022 10:17 AM CDT Respiratory Rate 18 09/30/2022 10:17 AM CDT Oxygen Saturation 95% 12/01/2023 9:30 AM CDT Inhaled Oxygen Concentration - - Weight 67.6 kg (149 lb) 12/01/2023 9:30 AM CDT Height 175.3 cm (5' 9 ) 09/30/2022 10:17 AM CDT Body Mass Index 22 09/30/2022 10:17 AM CDT Plan of Treatment Not on file Care Teams Manager Inventory Control Relationship Specialty Start Date End Date Eduardo Marin DO [address] [place] [address] PCP - General Internal Medicine 05/14/21
--- OUTSIDE RECORDS SUMMARY | 2024-07-01 05:15 | XMS_ITS | Encounter Summary ---
Author Organization [facility] Address [address] [place] [address] Care Team Providers Care Geographic Information System Analyst Name Role Phone Eduardo Marin DO Primary Care Provider [phone] Encounter Details Date Type Department Care Team (Late st Contact Info) Description 09/10/2023 Lab Requisition [facility] - DermPath Lab [address] [place] [id number] Marc Miller MD [address] [place] [address] Social History Tobacco Use Types Packs/Day Years Used Date Smoking Tobacco: Former Smokeless Tobacco: Never Alcohol Use Standard Drinks/Week Comments Yes 1 (1 standard drink = 0.6 oz pur e alcohol) PHQ-2 Answer Date Recorded PHQ2 TOTAL SCORE 0 09/30/2022 Sex and Gender Information Value Date Recorded Sex Assigned at Not on file Gender Identity Not on file Sexual Orientation Not on file documented as of this encounter Plan of Treatment Not on file documented as of this encounter Procedures Procedure Name Priority Date/Time Associated Diagnosis Comments DERMATOPATHOLOGY Routine 09/09/2023 12:0 0 AM CDT documented in this encounter Results * DERMATOPATHOLOGY (09/09/2023 12:00 AM CDT) Case Report Dermatopathology Report ? Case: [id number] ? Authorizing Provider: ??Marc Miller MD ?Collected: ? 09/09/2023 12:00 AM ? Ordering Location: ? [facility] - ??Received: ?09/11/2023 06:28 AM ? DermPath Lab ? Pathologist: ? Moriah Staples MD ? Specimen: ?Skin, midline upper back ? 4 7:58 AM CDT DERMATOPATHOLOGY LABORATORY Final Diagnosis Specimen A. SKIN, midline upper back: LENTIGINOUS MELANOCYTIC NEVUS, COMPOUND TYPE, IRRITATED AND INFLAMED (D22.5) 4 7:58 AM CDT DERMATOPATHOLOGY LABORATORY Clinical History R/O Dysplastic Nevus vs Nevus vd SK. 4 7:58 AM CDT DERMATOPATHOLOGY LABORATORY Gross Description Specimen A: Received is one formalin filled container labeled with the patient's name and designated midline upper back. The specimen consists of a shave biopsy measuring 9x9x1 mm. Jar 0. 4 7:58 AM CDT DERMATOPATHOLOGY LABORATORY Microscopic Description Specimen A. SKIN, midline upper back: This is a compound nevus. There is melanin pigment in the stratum corneum. There is a lentiginous proliferation of melanocytes between nevus nests of cells along the dermal epidermal junction. There is underlying fibroplasia of the papillary dermis and a patchy lymphohistiocytic infiltrate. The intradermal component is bland in appearance and matures with depth. The hematoxylin and eosin stain is reviewed; immunohistochemical stains are performed to further characterize this process. SOX10 confirms the low-lying nature of this lesion. PRAME is not overexpressed (2+). 7:58 AM CDT DERMATOPATHOLOGY LABORATORY Disclaimer An external and internal positive and negative controls are appropriate for the histochemical, immunohistochemical and immunofluorescence stain(s) in this case (if any), except where stated explicitly. The performance characteristics of the stain(s) cited in this report were developed and its performance characteristic determined by the Dermatopathology Laboratory at [facility], directed by Dr. Vikas Vickers. These tests need not be, and therefore are not, approved by the [place] Food and Drug Administration. The tests are used for clinical purposes. Billing Codes Specimen Charges Stain Charges 23695 1 [id number] 1 1 7:58 AM CDT DERMATOPATHOLOGY LABORATORY Embedded Images 7:58 AM CDT DERMATOPATHOLOGY LABORATORY Pathology/Cytolog y TISSUE SPECIMEN FROM SKIN / Unknown 09/09/2023 09/11/2023 6:28 AM CDT Marc Miller MD LAB - PATHOLOGY/CYTO LOGY ORDERABLES DERMATOPATHOLOGY LABORATORY [facility] - Department of Dermatology [address], [address] [phone] documented in this encounter Visit Diagnoses Not on filedocumented in this encounter Care Teams Geographic Information System Analyst Relationship Specialty Start Date End Date Eduardo Marin DO [address] [place] [id number] PCP - General Internal Medicine 05/14/21 documented as of this encounter
--- OUTSIDE RECORDS SUMMARY | 2024-07-01 05:15 | XMS_ITS | Encounter Summary ---
Author Organization [facility] Address [address] [place] [address] Care Team Providers Care Customer Success Director Name Role Phone Sawyer Brown MD Primary Care Provider Unavail able Sawyer Brown MD Primary Care Provider Unavail able Eduardo Marin DO Primary Care Provider [phone] Sawyer Brown MD Primary Care Provider Unavail able Eduardo Marin DO Primary Care Provider [phone] Encounter Details Date Type Department Care Team (Late st Contact Info) Description 02/09/2020 Telephone [facility] General Internal Medicine [address] [facility] [address] [place] [address] Ulices Ovalle MD [address] [place] [address] Social History Tobacco Use Types Packs/Day Years Used Date Smoking Tobacco: Former Smokeless Tobacco: Never Alcohol Use Standard Drinks/Week Comments No 0 (1 standard drink = 0.6 oz pur e alcohol) Sex and Gender Information Value Date Recorded Sex Assigned at Not on file Gender Identity Not on file Sexual Orientation Not on file documented as of this encounter Miscellaneous Notes * Telephone Encounter - Stella Reyes - 02/09/2020 4:10 PM CDT Patient called to reschedule his appt. The next available is Apr. However he needs his labs sent tohim at home so he can get his blood work completed before his Apr. appt. Please send him his labs to his house. Thank you Lynn documented in this encounter Plan of Treatment Not on file documented as of this encounter Visit Diagnoses Not on filedocumented in this encounter Care Teams Customer Success Director Relationship Specialty Start Date End Date Sawyer Brown MD PCP - General 10/02/17 04/23/20 Sawyer Brown MD NEED INFORMATION UPDATED PCP - General 04/24/20 0 Eduardo Marin DO [address] [place], [place] [phone] PCP - General Internal Medicine 05/08/20 06/22/20 Sawyer Brown MD NEED INFORMATION UPDATED PCP - General 06/23/20 05/13/21 Eduardo Marin DO [address] [place] [address] PCP - General Internal Medicine 05/14/21 documented as of this encounter
--- OUTSIDE RECORDS SUMMARY | 2024-07-01 05:15 | XMS_ITS | Data Portability ---
Author Organization [place] [facility], Main Office Address [address] [place] [address] Care Team Providers Care Document Control Supervisor Name Role Phone POONAM KAUR Primary Care Provider POONAM KAUR Referring Provider [phone] Assessment Encounter Date Assessment Date Assessment LastModified by Organization Details LastModified Time 08/09/2022 08/09/2022 HPI: Patient returns. He is here for Monovisc injections into both of his knees. His insurance company would cover duraLane which she has had in the past and had good success with. Again he has moderate to moderately severe patellofemoral osteoarthritis in his knees. Physical exam: 81-year-old male very alert pleasant. He walks well without assistance. He has trace effusion in both knee. Range of motion is from 0-140 degrees bilaterally. Moderate pain patellofemoral grind bilaterally. After ChloraPrep was used on the skin Monovisc injection was given into both knees through a 20 gauge needle. Risk of infection was discussed. Impression: 81-year-old male who has patellofemoral osteoarthritis in both knees. He has gotten good relief from Visco supplementation injections in the past and wished to continue with these. He can repeat these in 6 months if he feels he needs it. Otherwise we will see him back as needed. [email or web address] Not available 08/09/2022 13:34:37 Plan of Treatment Reminders Order Date Submit Date Provider Last Modified By Organization Details Last Modified Time Details Appointments None recorded. Lab None recorded. Referral None recorded. Procedures knee aspiration /injection (PROC) 2022 023 [email or web address] Not available 10:08:41 Surgeries None recorded. Imaging None recorded. Medication Orders Monovisc 88 mg/4 mL intra-naya cular syringe 2022 023 [email or web address] Not available 3 16:32:10 Patient TargetsNo targets recorded. Patient InstructionsNo instructions recorded. Reason for Referral None Reported. Results Created Date Observation Date Name Description Value Unit Range Abnormal Flag Note LastModifiedBy Organization Detail LastModifiedTime 02/03/20 21 XR, knee, 3 view No observ ation record ed. [id number] [facility] [place] [address], [place], [address], 08/07/2022 10:46:23 07/22/19 23 XR, knee No observ ation record ed. [id number] [facility] [place] [address], [place], [address], 08/07/2022 10:46:23 Result Notes None recorded. Problems Name Problem SNOMED Code Status Onset Date Resolution Date Notes Provider Name and Address Organization Details Recorded Time Wrist joint pain Active Not Available [facility] 10:42:45 Partial thickness rotator cuff tear Active Not Available [facility] 10:42:45 Pain of bilateral knee regions 5974889208022 02 Active 2022 Not Available [facility] 3 10:42:45 Bilateral osteoarthr itis of knees 5522643741760 07 Active 2022 ALBERTO Benson, [place] [facility] [place] [employer] [facility] 3 11:48:15 Problem Notes None recorded. Procedures Surgical History Date Name Laterality Status Provider Name and Address Organization Details Recorded Time Rotator cuff surgery completed Not Available [facility] 08/07/2022 10:41:01 Arthroscopy completed Not Available [facility] 08/07/2022 10:41:01 cardioversion completed Not Available [facility] 08/07/2022 10:41:01 Tonsillectomy completed Not Available [facility] 08/07/2022 10:41:01 plantar fasciectomy completed Not Available [facility] 08/07/2022 10:41:01 mohs surgery completed Not Available [facility] 08/07/2022 10:41:01 Hernia Repair completed Not Available [facility] 08/07/2022 10:41:01 Pac[facility] 08/07/2022 10:41:01 Cholecystectomy completed Not Available [facility] 08/07/2022 10:41:01 Appendectomy completed Not Available [facility] 08/07/2022 10:41:01 atrial operation [facility] 08/07/2022 10:41:01 Colon Resection completed Not Available [facility] 08/07/2022 10:41:01 Imaging Results Imaging Date Name Status LastModified by Organiz ation Details LastModified Time 07/22/2022 XR, knee completed [id number] [facility] [place] [address], [place], [address], 08/07/2022 10:46:23 02/02/2021 XR, knee, 3 view completed [id number] [facility] [place] [address], [place], [address], 08/07/2022 10:46:23 Procedure Notes None recorded. Medical Equipment None Reported. Allergies Allergen ID Allergen Name Allergen Category Reaction Reaction Severity Criticality Documentation Date Start Date Code Code System Note Provider Name and Address Organization Details Recorded Time 79484 Veltin medicatio n Not available Not available Not available 08/07/2022 36688 4 RxNorm Not Available [facility] 10:46:00 Medications Name Sig Start Date Stop Date Status Note LastModified by Organization Details LastModified Time doxycycline hyclate 100 mg capsule TAKE 1 CAPSULE BY MOUTH DAILY 07/22 completed Not Available Not Available Not Available cefuroxime axetil 250 mg tablet TK 1 T PO Q 12 H 07/23 completed Not Available Not Available Not Available azithromyci n 250 mg tablet 07/22 completed Not Available Not Available Not Available benzonatate 200 mg capsule TAKE 1 CAPSULE BY MOUTH THREE TIMES DAILY NEEDED FOR COUGH 07/22 completed Not Available Not Available Not Available hydrocodone 5 mg-acetamin ophen 325 mg tablet TK 1 TO 2 TS PO Q 6 H PRF PAIN 07/23 completed Not Available Not Available Not Available ondansetron HCl 4 mg tablet 02/02 completed Not Available Not Available Not Available topiramate 25 mg tablet TK 1 T PO QHS 07/23 completed Not Available Not Available Not Available Vitamin C 1,000 mg tablet Take by oral route. 2020 active Not Available Not Available Not Avai lable prednisone 50 mg tablet TAKE 1 TABLET BY MOUTH DAILY active Not Available Not Available No t Available gabapentin 300 mg capsule TK 1 C PO QHS 07/23 completed Not Available Not Available Not Available omeprazole 20 mg capsule,del ayed release TAKE 2 CAPSULES BY MOUTH DAILY active Not Available Not Available No t Available codeine 10 mg-guaifene sin 100 mg/5 mL oral liquid TAKE 5 ML BY MOUTH EVERY EVENING NEEDED FOR COUGH 08/09 completed Not Available Not Available Not Available gabapentin 100 mg capsule 07/23 completed Not Available Not Available Not Available methylpredn isolone 4 mg tablets in a dose pack FPD active Not Available Not Available Not Available albuterol sulfate HFA 90 mcg/actuati on aerosol inhaler INHALE 1 INHALATIO N BY MOUTH EVERY 4 TO 6 HOURS NEEDED FOR SHORTNESS OF BREATH active Not Available Not Available No t Available Co Q-10 100 mg capsule Take by oral route. 2020 active Not Available Not Available Not Avai lable tadalafil 20 mg tablet TAKE 1 TABLET BY MOUTH EVERY DAY NEEDED FOR ERECTILE DYSFUNCTI ON active Not Available Not Available No t Available omeprazole 07/22 completed Not Available Not Available Not Available lidocaine (PF) 10 mg/mL (1 %) injection solution In office injection administe red by the provider 07/[address] [facility]: [phone] Not Available Not Available Not Available ProAir HFA 2019 active Not Available Not Available Not Avai lable vitamin B12 500 mcg-folic acid 400 mcg tablet Take by oral route. 2020 active Not Available Not Available Not Avai lable Vitamin D3 125 mcg (5,000 unit) tablet Take by oral route. 2020 active Not Available Not Available Not Avai lable loratadine 10 mg capsule Take by oral route. 2020 active Not Available Not Available Not Avai lable testosteron e 20.25 mg/1.25 gram per pump act.(1.62 %) transdermal gel APPLY 1 PUMP TOPICALLY DAILY OVER MAX AREA ONE UPPER ARM AND SHOULDER. 07/22 completed Not Available Not Available Not Available testosteron e 1.62 % (20.25 mg/1.25 gram) transdermal gel packet APPLY 1 PACKET TOPICALLY ONCE DAILY active Not Available Not Available No t Available Eliquis 5 mg tablet TAKE 1 TABLET BY MOUTH TWICE DAILY active Not Available Not Available No t Available fluticasone furoate 100 mcg-vilante rol 25 mcg/dose inhalation powder INHALE 1 PUFF BY MOUTH DAILY. RINSE MOUTH WITH WATER AFTER USE. DO NOT SWALLOW active Not Available Not Available No t Available Monovisc 88 mg/4 mL intra-artic ular syringe Take 4 mL by intraarti cular route. 2022 active Not Available Not Available Not Avai lable krill oil 350 mg-om-3 90 mg-dha 24 mg-epa 50 mg-phosphol ipids capsule Take by oral route. 2020 active Not Available Not Available Not Avai lable Durolane 60 mg/3 mL intra-artic ular syringe intraarti cular injection given in office active Not Available Not Available No t Available Fluzone High-Dose 2019-20 (PF) 180 mcg/0.5 mL intramuscul ar syringe TO BE ADMINISTE RED BY PHARMACIS T FOR IMMUNIZAT ION 07/23 completed Not Available Not Available Not Available Fluad Quad (6 5yr up)(PF) 60 mcg (15 mcg x 4)/0.5mL IM syringe ADM 0.5ML IM UTD active Not Available Not Available No t Available Vitals Date Recorded Body mass index (BMI) Body height Body weight Provider Name and Address Organization Details Last Updated DateTime 07/22/2022 25.8 kg/m2 170.18 cm 35315.74 g Not Available [facility] 08/07/2022 10:41:30 Date Recorded Body height Provider Name an d Address Organization Details Last Updated DateTime 08/09/2022 170.18 cm ALBERTO Benson - [facility] 08/09/2022 11:47:48 Social History Question Answer Notes LastModified by Organizat ion Details LastModified Time Tobacco Smoking Status Former Smoker Not Available [facility] 08/07/2022 10:40:27 What Is Your Level Of Alcohol Consumption? Occasional [id number] Information not available 08/07/2022 When Did You Quit Smoking? 16+yearshaseeb power 2002 [id number] Information not available 08/07/2022 How Many Years Have You Smoked Tobacco? 50 [id number] Information not available 08/07/2022 Do You Or Have You Ever Used Any Other Forms Of Tobacco Or Nicotine? No [id number] Information not available 08/07/2022 Sex: Unknown Functional Status None recorded. Mental Status None recorded. Family History Relationship Description Onset Age of this Age Resolved Age Notes LastModified by Organization Details LastModified Time Mother Heart disease [id number] Not available 08/07/2022 10:41:03 Brother Heart disease [id number] Not available 08/07/2022 10:41:03 Brother Heart disease [id number] Not available 08/07/2022 12:45:58 Father Family history of stroke [id number] Not available 08/07/2022 10:41:03 Medical History Condition Response CANCER: SPECIFY Y USE OF BLOOD THINNERS Y HEART ARRHYTHMIA Y Blood Disorder N COPD Y Past Encounters Encounter ID Performer Location Encounter Start Date Encounter Closed Date Diagnosis/Indication Diagnosis SNOMED-CT Code Diagnosis ICD10 Code Diagnosis Note [id number] [facility] [place] [address] [place] [address] 02/02/2021 00:00:00 02/04/2021 15:47:42 [id number] [facility] [place] [address] [place] [address] 07/22/2022 00:00:00 07/22/2022 14:18:40 [id number] KATHYA Garcia [facility] [place] [address] [facility] [address] [place] [address] 08/09/2022 11:45:07 08/09/2022 13:49:10 Bilateral osteoarthritis of knees [id number] 71710 M17.0 Health Concerns Section Related Observation LastModified by Organization Detai ls LastModified Time None Recorded Concern Status LastModified by Organization Details LastModified Time None Recorded Advance Directives Directive None Recorded Payers Encounter Date Sequence Insurance Name Policy Number Policy [employer] Covered Member ID Terrazas Member ID Guarantor Name 08/09/2022 1 [employer] (MEDICARE REPLACEMENT PPO) [id number] Marky Arroyo [id number] Marky Arroyo
--- OUTSIDE RECORDS SUMMARY | 2024-07-01 05:15 | XMS_ITS | Encounter Summary ---
Author Organization [facility] Address [address] [place] [address] Care Team Providers Care Curing Press Operator Name Role Phone Sawyer Brown MD Primary Care Provider Unavail able Sawyer Brown MD Primary Care Provider Unavail able Eduardo Marin DO Primary Care Provider [phone] Sawyer Brown MD Primary Care Provider Unavail able Eduardo Marin DO Primary Care Provider [phone] Encounter Details Date Type Department Care Team (Late st Contact Info) Description 02/25/2018 Lab Requisition [facility] [address] [place] [address] Marc Miller MD [address] [place] [address] Social History Tobacco Use Types Packs/Day Years Used Date Smoking Tobacco: Never Assessed Sex and Gender Information Value Date Recorded Sex Assigned at Not on file Gender Identity Not on file Sexual Orientation Not on file documented as of this encounter Plan of Treatment Not on file documented as of this encounter Procedures Procedure Name Priority Date/Time Associated Diagnosis Comments DERMATOPATHOLOGY Routine 02/24/2018 12:0 0 AM CDT documented in this encounter Results * DERMATOPATHOLOGY (02/24/2018 12:00 AM CDT) Case Report Dermatopathology Report ? Case: [id number] ? Authorizing Provider: ??Marc Miller MD ?Collected: ? 02/24/2018 12:00 AM ? Pathologist: ? Amber Ambrosio MD ?Received: ?02/25/2018 11:53 AM ? Specimen: ?Skin, left dorsal index MCP joint ? 3:40 PM CDT DERMATOPATHOLOGY LABORATORY Final Diagnosis Specimen A. 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 3:40 PM T DERMATOPATHOLOGY LABORATORY Gross Description Specimen A: Received is one formalin filled container labeled with the patient's name and designated left dorsal index MCP joint. The specimen consists of a shave biopsy measuring [id number], bisected. Jar 0. 3:40 PM CDT DERMATOPATHOLOGY LABORATORY Microscopic Description Specimen A. SKIN, left dorsal index MCP joint: Sections show an endo exophytic crateriform lesion with a keratotic plug, formed by confluent follicle-like structures with relatively large keratinocytes and neutrophilic abscesses. Adjacent to the squamous cell carcinoma there are scattered dyskeratotic keratinocytes and vacuolar alteration along the basal cell layer. In addition, an underlying band-like infiltrate composed mostly of lymphocytes focally obscures the dermal-epidermal junction. GMS stain is negative for fungus. 8 3:40 PM CDT DERMATOPATHOLOGY LABORATORY Disclaimer An external and internal positive and negative controls are appropriate for the histochemical, immunohistochemical and immunofluorescence stain(s) in this case (if any), except where stated explicitly. The performance characteristics of the stain(s) cited in this report were developed and its performance characteristic determined by the Dermatopathology Laboratory at [facility]. These tests need not be, and therefore are not, approved by the [place] Food and Drug Administration. The tests are used for clinical purposes. Billing Codes Specimen Charges Stain Charges 37303 1 58475 1 8 3:40 PM CDT DERMATOPATHOLOGY LABORATORY Embedded Images 3:40 PM CDT DERMATOPATHOLOGY LABORATORY Pathology/Cytolog y TISSUE SPECIMEN FROM SKIN / Unknown 02/24/2018 02/25/2018 11:53 AM CDT Marc Miller MD LAB - PATHOLOGY/CYTO LOGY ORDERABLES Performing Organization Address City/State/[facility] Co de Phone Number DERMATOPATHOLOGY LABORATORY [facility] - Department of Dermatology [address] [place] [address], 5th Floor Lab [address] [phone] documented in this encounter Visit Diagnoses Not on filedocumented in this encounter Care Teams Curing Press Operator Relationship Specialty Start Date End Date Sawyer Brown MD PCP - General 10/02/17 04/23/20 Sawyer Brown MD NEED INFORMATION UPDATED PCP - General 04/24/20 0 Eduardo Marin DO [address] [place] [address] PCP - General Internal Medicine 05/08/20 06/22/20 Sawyer Brown MD NEED INFORMATION UPDATED PCP - General 06/23/20 05/13/21 Eduardo Marin DO [address] [place] [address] PCP - General Internal Medicine 05/14/21 documented as of this encounter
--- OUTSIDE RECORDS SUMMARY | 2024-07-01 05:15 | XMS_ITS | Patient Health Summary ---
Author Organization [facility] Address [address] [place] [address] Care Team Providers Care Grain Trader Name Role Phone Eduardo Marin Primary Care Provider Note from [facility],non-owned Affiliates and Associated Physician Practices is amultiple site organization consisting of ambulatory clinics and hospital sitesin [place], [place], [place] and [place]. This disclosure is being madepursuant to the Care Everywhere program and may not contain all information available regarding this patient. Last updated 18.[facility] Allergies * Diclofenac Epolamine(Diarrhea,Other,Palpitations) -High Criticality * Clindamycin-Tretinoin(Unknown),Inactive * Influenza Vaccine Live(Unknown) -Low Criticality,Inactive * Influenza Vaccines(Palpitations) -Low Criticality,Inactive Medications * Be aware that medications may not be up to date on this document. Alwaysverify current medications with the patient. * albuterol HFA (PROAIR HFA) 108 (90 Base) MCG/ACT inhaler(Started 01/06/2012) Inhale 90 mcg by mouth as needed * apixaban (ELIQUIS) 5 MG tablet(Started 08/03/2018) Take 1 (one) tablet by mouth 2 times daily * vitamin C (ASCORBIC ACID) 1000 MG tablet Take 0.5 (one-half) tablet by mouth 2 times daily * tadalafil (CIALIS) 20 MG tablet(Started 09/06/2018) Take 1 (one) tablet by mouth as needed * cetirizine (ZYRTEC) 10 MG tablet(Started 10/05/2018) Take 1 (one) tablet by mouth once daily 4 refills remaining * omeprazole (PRILOSEC) 20 MG capsule(Started 04/16/2020) Take 2 (two) capsules by mouth once daily * Coenzyme Q10 (COQ10) 100 MG Take 100 (one hundred) mg by mouth once daily * Krill Oil 350 MG CAPS Take 1 capsule by mouth once daily * Cholecalciferol 125 MCG (5000 UT) Take 1 (one) tablet by mouth once daily * Cobalamin Combinations (VITAMIN D98-URIKU ACID) 500-400 MCG Take 1 tablet by mouth once daily * testosterone (ANDROGEL) 20.25 MG/1.25GM (1.62%) gel(Started 09/22/2020) testosterone 1.62 % (20.25 mg/1.25 gram) transdermal gel packet APPLY 1 PACKET TOPICALLY ONCE DAILY * empagliflozin (Jardiance) 10 MG tablet(Started 03/18/2023) Take 1 (one) tablet by mouth once daily * traZODone (Desyrel) 50 MG tablet(Started 12/03/2022) Take 1 (one) tablet by mouth * Anoro Ellipta 62.5-25 MCG/ACT inhaler Inhale 1 (one) puff by mouth once daily Active Problems Problem Noted Date Diagnosed Date [...] Transient ischemic attack 11/20/2015 Atrial fibrillation 04/19/2014 Presence of other cardiac implants and grafts care home current use of anticoagulant therapy 0 02/04/2013 Arthritis Chronic back pain COPD (chronic obstructive pulmonary disease) GERD (gastroesophageal reflux disease) Squamous cell cancer of skin of hand Immunizations * Covid Deltagen primary monovalent 12+ yr 0.3mL Purple cap(Given 03/09/2021) * INFLUENZA VACCINE, ADJUVANTED, QUADR. (FLUAD QUADRIVALENT; 65Y+) (AIIV4)(Given 02/25/2020) * INFLUENZA VACCINE, HIGH-DOSE, QUADR. (FLUZONE HIGH-DOSE QUADRIVALENT; 65Y+), 0.7 ML (HD-IIV4)(Given 03/25/2019) Social History Tobacco Use Types Packs/Day Years [...] Mass Index 22 09/30/2022 10:17 AM CDT Procedures * DERMATOPATHOLOGY(Performed 09/09/2023) * TSH(Performed 07/01/2023) Performed for Goiter * TSH(Performed 09/24/2022) Performed for Goiter * TSH(Performed 10/22/2021) Performed for Goiter * TSH(Performed 04/16/2021) Performed for Goiter * CARDIAC RHYTHM STRIP ORDER(Performed 05/10/2020) * CARDIAC PROCEDURE ORDER(Performed 05/10/2020) * CARDIAC PACER/DEFIB ORDER(Performed 05/10/2020) * CARDIAC EKG ORDER(Performed 05/10/2020) * CARDIAC CATH(Performed 05/08/2020) * EKG 12-LEAD(Performed 05/08/2020) Performed for Atrial fibrillation, unspecified type (HCC) * CARDIAC CATH CONSULT(Performed 05/08/2020) * LAB RESULTS ORDER(Performed 10/01/2018) * LAB RESULTS ORDER(Performed 05/28/2018) * DERMATOPATHOLOGY(Performed 02/24/2018) * DERMATOPATHOLOGY(Performed 02/10/2018) * LAB HISTORICAL RESULTS-ONBASE(Performed 03/24/2017) * LAB HISTORICAL RESULTS-ONBASE(Performed 03/24/2017) * LAB HISTORICAL RESULTS-ONBASE(Performed 04/29/2016) * LAB HISTORICAL RESULTS-ONBASE(Performed 04/29/2016) * DERMATOPATHOLOGY(Performed 06/07/2015) * LAB HISTORICAL RESULTS-ONBASE(Performed 03/24/2015) * LAB HISTORICAL RESULTS-ONBASE(Performed 03/03/2014) * LAB HISTORICAL RESULTS-ONBASE(Performed 01/20/2013) * LAB HISTORICAL RESULTS-ONBASE(Performed 01/20/2013) Results * DERMATOPATHOLOGY (09/09/2023 12:00 AM CDT) Only the most recent of4 resultswithin the time period is included. Case Report Dermatopathology Report ? Case: [id number] ? Authorizing Provider: ??Marc Miller MD ?Collected: ? 09/09/2023 12:00 AM ? Ordering Location: ? [facility] - ??Received: ?09/11/2023 06:28 AM ? DermPath Lab ? Pathologist: ? Moriah Staples MD ? Specimen: ?Skin, midline upper back ? 4 7:58 AM [facility] DERMATOPATHOLOGY LABORATORY Final Diagnosis Specimen A. SKIN, midline upper back: LENTIGINOUS MELANOCYTIC NEVUS, COMPOUND TYPE, IRRITATED AND INFLAMED (D22.5) 7:58 AM [facility] DERMATOPATHOLOGY LABORATORY Clinical History R/O Dysplastic Nevus vs Nevus vd SK. 7:58 AM [facility] DERMATOPATHOLOGY LABORATORY Gross Description Specimen A: Received is one formalin filled container labeled with the patient's name and designated midline upper back. The specimen consists of a shave biopsy measuring 9x9x1 mm. Jar 0. 7:58 AM [facility] DERMATOPATHOLOGY LABORATORY Microscopic Description Specimen A. SKIN, [...] PRAME is not overexpressed (2+). 7:58 AM [facility] DERMATOPATHOLOGY LABORATORY Disclaimer An external and internal positive and negative controls are appropriate for the histochemical, immunohistochemical and immunofluorescence stain(s) in this case (if any), except where stated explicitly. The performance characteristics of the stain(s) cited in this report were developed and its performance characteristic determined by the Dermatopathology Laboratory at [facility], directed by Dr. Vikas Vickers. These tests need not be, and therefore are not, approved by the [place] Food and Drug Administration. The tests are used for clinical purposes. Billing Codes Specimen Charges Stain Charges 27334 1 53473 46864 1 1 4 7:58 AM CDT DERMATOPATHOLOGY LABORATORY Embedded Images 4 7:58 AM CDT DERMATOPATHOLOGY LABORATORY Pathology/Cytolog y TISSUE SPECIMEN FROM SKIN / Unknown 09/09/2023 09/11/2023 6:28 AM CDT Marc Miller MD LAB - PATHOLOGY/CYTO LOGY ORDERABLES DERMATOPATHOLOGY LABORATORY [facility] Department of Dermatology [address], [address] [phone] * TSH (07/01/2023 11:40 AM MOP WORKER) Only the most recent of4 resultswithin the time period is included. TSH 2.170 0.450 - 4.500 uIU/mL [facility] INSURANCE BILL Comment:FASTING Blood BLOOD SPECIMEN / Unknown 07/01/2023 11:40 AM MOP WORKER 07/01/2023 Narrative Resulting Agency Comment Lab Testing performed at: [facility] [place] [address] ??[facility] [id number] Ulices Ovalle MD LAB - CHEMISTRY ORD ERABLES [facility] INSURANCE BILL [address] [place] [address] * CARDIAC RHYTHM STRIP ORDER (05/10/2020 1:48 AM MOP WORKER) Narrative 05/10/2020 1:48 AM MOP WORKER Ordered by an unspecified provider. Scanned Document CARDIAC SERVICES ORD ERABLES * CARDIAC PROCEDURE ORDER (05/10/2020 1:48 AM MOP WORKER) Narrative 05/10/2020 1:48 AM MOP WORKER Ordered by an unspecified provider. Scanned Document CARDIAC SERVICES ORD ERABLES * CARDIAC PACER/DEFIB ORDER (05/10/2020 1:48 AM MOP WORKER) Narrative 05/10/2020 1:48 AM MOP WORKER Ordered by an unspecified provider. Scanned Document CARDIAC SERVICES ORD ERABLES * CARDIAC EKG ORDER (05/10/2020 1:48 AM MOP WORKER) Narrative 05/10/2020 1:48 AM MOP WORKER Ordered by an unspecified provider. Scanned Document CARDIAC SERVICES ORD ERABLES * CARDIAC CATH PROCEDURE (05/08/2020 2:06 PM MOP WORKER) Narrative [facility] - 05/08/2020 2:06 PM MOP WORKER Leonard Carmona, DO ? 05/08/2020 ??2:09 PM 70J synch via paddles, successful to sinus/A paced rhythm. AV PPM interrogated and reprogrammed with normal function. No complications Leonard Carmona DO CARDIAC SERVICES ORDERABLES Performing Organization Address [facility] Co de Phone Number [facility] * EKG 12-LEAD (05/08/2020 1:35 PM MOP WORKER) Ventricular Rate 61 BPM [facility] Atrial Rate 61 BPM [facility] P-R Interval 104 ms [facility] QRS Duration ms 122 ms [facility] Q-T Interval ms 414 ms [facility] QTC Calculation (Bezet) 416 ms [facility] Calculated P Anderson 50 degrees [facility] Calculated R Anderson 31 degrees [facility] Calculated T Anderson -28 degrees [facility] Interpretation EKG Electronic atrial pacemaker Right bundle branch block T wave abnormality, consider inferior ischemia Abnormal ECG No previous ECGs available Confirmed by SONDRA DELEON, FRANCIS ([id number]) on 05/09/2020 10:58:53 AM [facility] 05/08/2020 1:35 PM MOP WORKER 05/09/2020 10:58 AM MOP WORKER Leonard Carmona DO ECG ORDERABLES Performing Organization Address [facility] Co de Phone Number [facility] * CARDIAC CATH CONSULT (for Epic Reporting) (05/08/2020 12:45 PM MOP WORKER) 05/08/2020 12:4 5 PM MOP WORKER Narrative [facility] CCW - 05/08/2020 2:06 PM MOP WORKER Leonard Carmona, DO ? 05/08/2020 ??2:09 PM 70J synch via paddles, successful to sinus/A paced rhythm. AV PPM interrogated and reprogrammed with normal function. No complications Leonard Carmona DO ECHO ORDERABLES Performing Organization Address City/[facility] Co de Phone Number [facility] * LAB RESULTS ORDER (10/01/2018 7:08 AM CDT) Only the most recent of2 resultswithin the time period is included. Narrative 10/01/2018 7:08 AM CDT Ordered by an unspecified provider. Scanned Document LAB - THERAPEUTIC DR ELKINS MONITORING ORDERABLES * LAB HISTORICAL RESULTS-ONBASE (03/24/2017) Only the most recent of8 resultswithin the time period is included. 03/24/2017 Historical Provider LAB - CHEMISTRY O RDERABLES Performing Organization Address City/[facility]/ZIP Co de Phone Number [id number] [place] [address], [facility] Care Teams Grain Trader Relationship Specialty Start Date End Date Eduardo Marin DO [address] [place], [place] [id number] PCP - General Internal Medicine 05/14/21
--- OUTSIDE RECORDS SUMMARY | 2024-07-01 05:15 | XMS_ITS | Clinical Summary ---
Author Organization [facility] Address [address] [place] [address] Care Team Providers Care Journeyman Level Acoustic Analyst Name Role Phone Eduardo Marin DO Primary Care Provider [phone] Source Comments [facility],non-owned Affiliates and Associated Physician Practices is amultiple site organization consisting of ambulatory clinics and hospital sitesin [place], [place], [place] and [place]. This disclosure is being madepursuant to the Care Everywhere program and may not contain all information available regarding this patient. 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 (FLUAD QUADRIVALENT; 65Y+) (AIIV4) 02/25/2020 INFLUENZA VACCINE, HIGH-DOSE , QUADR. (FLUZONE HIGH-DOSE QUADRIVALENT; 65Y+), 0.7 ML (HD-IIV4) 03/25/2019 Family History Medical History Relation Name Comments Cancer - Prostate Brother Dementia Father CAD (Coronary Artery Disease) Mother CVA Paternal Grandfather Thyroid Disease Neg Hx Relation Name Status Comments Brother Father Mother Paternal Grandfather Social History Tobacco Use Types Packs/Day Years [...] 09/30/2022 10:17 AM CDT Plan of Treatment Health Maintenance Due Date Last Done Comments DTAP/TDAP/TD VACCINES (1 - Tdap) 12/17/1959 PNEUMOCOCCAL VACCINE 50+ (1 of 2 - PCV) 12/17/1959 ZOSTER VACCINE (1 of 2) 1990 Respiratory Syncytial Virus (RSV) Vaccine Pt: or over 60 yrs (1 - 1-dose 75+ series) 12/17/2015 COVID-19 VACCINE ( - 2023-2 5 season) 2024 03/09/2021, 08/12/2020, 07/14/2020 INFLUENZA VACCINE (#1) 2024 0, 03/25/2019 DEPRESSION SCREENING 06/09/2024 09/30/2022 MEDICARE AWV ? CALENDAR YEAR 2024 HEPATITIS B VACCINE Aged Out No longe r eligible based on patient's age to complete this topic HIB VACCINE Aged Out No longer eligi ble based on patient's age to complete this topic HPV VACCINE Aged Out No longer eligi ble based on patient's age to complete this topic MENINGOCOCCAL (Group B) VACCINE Aged Out No longer eligible b ased on patient's age to complete this topic MENINGOCOCCAL VACCINE Aged Out No mary ann sandra eligible based on patient's age to complete this topic Care Teams Journeyman Level Acoustic Analyst Relationship Specialty Start Date End Date Eduardo Marin DO [address] [place] [address] PCP - General Internal Medicine 05/14/21
--- OUTSIDE RECORDS SUMMARY | 2024-07-01 05:15 | XMS_ITS | Referral Summary ---
Author Organization [facility] Address [facility] [place] [address] Care Team Providers Care Tailor Garment Fitter Name Role Phone Raza Serra MD Primary Care Provider [phone] Encounters Date Type Department Care Team Description 06/07/2024 Telephone [facility] Cardiology [address] 8th [place] [address] [place] [address] Savanna Oconnell from Last 3 Months Allergies Active Allergy Reactions Criticality Noted Date Comments Clindamycin-Tretinoi n Unknown,Other (See comments) Low 07/26/2019 Diclofenac Diarrhea,Nausea only High 01/03/2010 Diclofenac Epolamine Diarrhea,Nausea only High 01/03 Haemophilus Influenzae Type B Unknown Low 11/20/2015 Influenza A (H1n1) Vac 09 (Pf) Palpitations Low 03/16/2014 Reaction: Cold Patient is unsure if he has an allergy, thinks its just the preservatives in the vaccine Medications omeprazole (PriLOSEC) 20 mg capsuleIndicati ons:Treatment of Non-Bleeding Gastric Disorder Take 2 capsules (40 mg total) by mouth every morning 8 Active albuterol HFA (PROVENTIL HFA,VENTOLIN HFA,PROAIR HFA) 90 mcg/actuation inhaler Inhale 1 puff every 6 (six) hours as needed for shortness of breath or wheezing 2 Active ascorbic acid (VITAMIN C) 1,000 mg tabletIndicatio ns:Vitamin C Deficiency Take 1 tablet (1,000 mg total) by mouth every morning Active coenzyme Q10 100 mg capsuleIndicati ons:supplement Take 1 capsule (100 mg total) by mouth every morning Active [id number]-[id number]-d [id number] 833-88-14-50 mg capsuleIndicati ons:supplement Take 1 capsule by mouth every morning Active cholecalciferol (VITAMIN D-3) 5,000 unit tabletIndicatio ns:supplement Take 1 tablet (5,000 Units total) by mouth every morning Active cyanocobalamin/ folic acid (vitamin I62-abrau acid) 500-400 mcg tabletIndicatio ns:Vitamin Deficiency Prevention every morning Activ e testosterone 20.25 mg/1.25 gram (1.62 %) gel in metered-dose pump nightly 3 Active traZODone (DESYREL) 50 mg tablet Take 1 tablet (50 mg total) by mouth nightly as needed for sleep 3 Active umeclidinium-vi lanteroL (ANORO ELLIPTA) 62.5-25 mcg/actuation blister with device Inhale 1 puff daily 60 each 5 4 Active tadalafiL (CIALIS) 20 mg tablet TAKE 1 TABLET(20 MG) BY MOUTH DAILY NEEDED FOR ERECTILE DYSFUNCTION 10 tablet 1 4 Active Eliquis 5 mg tablet TAKE 1 TABLET BY MOUTH TWICE DAILY 180 tablet 2 4 Active Jardiance 10 mg tablet TAKE 1 TABLET(10 MG) BY MOUTH DAILY 30 tablet 11 4 Active Active Problems Problem Noted Date Diagnosed Date Hospital discharge follow-up 02/05/2023 Chronic diastolic CHF (congestive heart failure) ([facility]) 02/05/2023 Pacemaker 02/05/2023 SSS (sick sinus syndrome) ([facility]) 02/05/2021 Fitting and adjustment of cardiac pacemaker 01/09 Occupational exposure to dust 10/20/2019 History of cardiac radiofrequency ablation (RFA) 10/23/[address] on [address] 10/23/2018 GERD (gastroesophageal reflux disease) 9 Chronic bronchitis 10/23/2018 Hiatal hernia 10/23/2018 Evidence of airways hyperrea ctivity without diagnosis of asthma 10/23/2018 Other emphysema 10/20/2018 Dyspnea on exertion 10/20/2018 Physical deconditioning 10/20/2018 Impaired gas exchange 10/20/2018 Former cigarette smoker 10/20/2018 Wound infection after surgery 03/31/2018 Junctional melanocytic nevus of skin - Right SCC (squamous cell carcinoma), hand, left - Left 03/02/2018 Atrial fibrillation (CMS/HCC) 04/19/2014 Overview (09/13/2016): Atrial fibrillation assisted current use of anticoagulant therapy 0 02/04/2013 Chronic obstructive pulmonary disease Immunizations Name Administration Dates Next Due Pfizer SARS-CoV-2 Monovalent Vaccination (12+ Yrs) PURPLE 08/12/2020,07/14/2020 Social History Tobacco Use Types Packs/Day Years Used Date Smoking Tobacco: Former Smokeless Tobacco: Never Tobacco Cessation:Counseling Given: Not Answered Alcohol Use Standard Drinks/Week Comments Yes 0 (1 standard drink = 0.6 oz pur e alcohol) AUDIT-C Answer Date Recorded Q1: How often do you have a drink containing alc ohol? 2-4 times a month 03/04/2023 Q2: How many drinks containi ng alcohol do you have on a typical day when you are drinking? 1 or 2 03/04/2023 Q3: How often do you have si x or more drinks on one occasion? Never 03/04/2023 Personal Safety Answer Date Recorded Have you ever been in or are you currently in a harmful physical or emotional relationship or is someone making you feel afraid or unsafe? Denies 03/04/2023 Sex and Gender Information Value Date Recorded Sex Assigned at Not on file Legal Sex Male 2:40 PM FRONT DESK COORDINATOR Gender Identity Male 01/29/2021 1:05 PM CDT Sexual Orientation Straight 01/29/2021 1: 05 PM CDT Last Filed Vital Signs Vital Sign Reading Time Taken Comments Blood Pressure 120/69 03/15/2024 1:59 PM CDT Pulse 77 03/15/2024 1:59 PM CDT Temperature 36.9 ??C (98.4 ??F) 11/04/2023 3:40 PM CD T Respiratory Rate 16 11/18/2023 11:22 AM CDT Oxygen Saturation 96% 03/15/2024 1:59 PM CDT Inhaled Oxygen Concentration - - Weight 67 kg (147 lb 12.8 oz) 03/15/2024 1:59 PM CDT Height 172.7 cm (5' 8 ) 03/15/2024 1:59 PM CDT Body Mass Index 22.47 03/15/2024 1:59 PM CDT Plan of Treatment Not on file Medical Devices Implanted Type Area Putty Remover Device Identifier Shelf Expiration Date Model / Serial / Lot Pacemaker-2013 Implanted:07/2013 (Quantity not on file) Pacemaker Chest Med[employer] [place] S Mri Surescan 50.8x46.6mm 2 Chamber 7.4mm Pacemaker 22.5gm [id number] - [id number] - [id number] Implanted:Qty: 1 on 03/04/2023 by Patrick Brito MD PhD at [facility] Pacemaker Left: Chest Wall [employer] Inc 07/06/2024 [id number] / [id number] / Insurance [employer] MEDICARE [employer] MEDICARE AETNA MEDICARE Care Teams Tailor Garment Fitter Relationship Specialty Start Date End Date Raza Serra MD PCP - General Family Practice 11/04/23
--- OUTSIDE RECORDS SUMMARY | 2024-07-01 05:15 | XMS_ITS ---
Author Organization [facility] Address [address] [place] [address] Care Team Providers Care Contact Center Team Lead Name Role Phone Raza Serra MD Primary Care Provider [phone] Active Problems Problem Noted Date Diagnosed Date Hospital discharge follow-up 02/05/2023 Chronic diastolic CHF (congestive heart failure) ([facility]) 02/05/2023 Pacemaker 02/05/2023 SSS (sick sinus syndrome) ([facility]) 02/05/2021 Fitting and adjustment of cardiac pacemaker [...] hand, left - Left 03/02/2018 Atrial fibrillation ([facility]) 04/19/2014 Overview (09/13/2016): Atrial fibrillation [facility] current use of anticoagulant therapy 0 02/04/2013 Chronic obstructive pulmonary disease Current Oncology Plans No current plan information found. Past Plans No past plan information found. Radiation Treatments * No radiation treatments are documented for this patient in [facility]. Treatments may have been administered in another system. Lifetime Dose Tracking * Chemical Lifetime Dose Automatic Entry Manual Entr y DLP 1,359 mGycm 1,359 mGycm 0 mGycm
--- OUTSIDE RECORDS SUMMARY | 2024-07-01 05:15 | XMS_ITS | Clinical Summary ---
Author Organization [facility] Address [address] [place] [id number] Care Team Providers Care Center Human Resources Manager Name Role Phone Raza Serra MD Primary Care Provider [phone] Allergies Active Allergy Reactions Criticality Noted Date [...] mg total) by mouth every morning Active wxebl-sjzji-5-d zh-qsq-holrgy 060-42-96-50 mg capsuleIndicati ons:supplement Take 1 capsule by mouth every morning Active cholecalciferol (VITAMIN D-3) 5,000 unit tabletIndicatio ns:supplement Take 1 tablet (5,000 Units total) by mouth every morning Active cyanocobalamin/ folic acid (vitamin W52-wacla acid) 500-400 mcg tabletIndicatio ns:Vitamin Deficiency Prevention [...] 02/05/2023 Chronic diastolic CHF (congestive heart failure) ([facility]) 02/05/2023 Pacemaker 02/05/2023 SSS (sick sinus syndrome) ([facility]) 02/05/2021 Fitting and adjustment of cardiac [...] fibrillation (CMS/HCC) 04/19/2014 Overview (09/13/2016): Atrial fibrillation MCC current use of anticoagulant therapy 0 02/04/2013 Chronic obstructive pulmonary disease Encounters Date Type Department Care Team Description 06/07/2024 Telephone [facility] Cardiology [address] [place] [address] [place] [address] Savanna Oconnell from Last 3 Months Immunizations Name Administration Dates Next Due Pfizer SARS-CoV-2 Monovalent Vaccination (12+ Yrs) PURPLE 08/12/2020,07/14/2020 Surgical History Surgery Date Site/Laterality Comments OTHER SURGICAL HISTORY ?colon resection KNEE SURGERY ROTATOR CUFF REPAIR Right TONSILLECTOMY ABDOMINAL HERNIA REPAIR FASCIOTOMY FOOT / TOE Bilateral CARDIAC ELECTROPHYSIOLOGY MA PPING AND ABLATION 10/15/2012 SVT ablation CARDIAC ELECTROPHYSIOLOGY MA PPING AND ABLATION 02/16/2016 OTHER SURGICAL HISTORY 06/10/2013 Reveal implant CARDIAC PACEMAKER PLACEMENT 12/08/2013 medtdronic UVULOPALATOPHARYNGOPLASTY Medical History Medical History Date Comments Hx Other Medical ??TIA Hx Other Medical HLP Gastroesophageal reflux disease GERD Hx Other Medical Arrhythmias sup raventricular s/p RFA Other emphysema ([facility]) 10/20/2018 Dyspnea on exertion 10/20/2018 Physical deconditioning 10/20/2018 Impaired gas exchange 10/20/2018 Former cigarette smoker 10/20/2018 S/P dilatation of esophageal stricture 10/23/[address] nodules on CT 10/23/2018 GERD (gastroesophageal reflu x disease) 10/23/2018 Chronic bronchitis ([facility]) 10/23/2018 Hiatal hernia 10/23/2018 Occupational exposure to dust 10/20/2019 PONV (postoperative nausea a nd vomiting) Family History Medical History Relation Name Comments Other Brother 2 Prostate Cancer , Pacemaker Implant; Cause of : Prostate Cancer, Pacemaker Implant Alzheimer's disease Father Alzheime r's Disease; Cause of : Alzheimer's Disease Other Maternal Grandmother Unspeci fied Heart Disease; Cause of : Unspecified Heart Disease Other Mother 1 Pacemaker; Caus e of : Pacemaker Arrhythmia Mother 2 Family history of cardiac pacemaker - (Added by TW Conv) Stroke Paternal Grandfather Stroke; Cause of : Stroke Relation Name Status Comments Brother 1 (Age 79) Brother 2 Father (Age 87) Maternal Grandmother (Age 70) Mother 1 (Age 93) Mother 2 Paternal Grandfather (Age 81) Social History Tobacco Use Types Packs/Day Years [...] on file 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 Gender Identity Male 01/29/2021 1:05 PM CDT Sexual Orientation Straight 01/29/2021 1: 05 PM CDT Obstetrics History Last Filed Vital Signs Vital Sign Reading [...] 03/15/2024 1:59 PM CDT Plan of Treatment Health Maintenance Due Date Last Done Comments Depression Screening 1940 Hepatitis B Screening 1958 Well Visit 65+ 2005 Pneumococcal vaccine 65+ (2 of 2 - PPSV23 or PCV20) 03/28/2016 02/01/2016 Covid-19 Vaccine (4 - 2023-2 5 season) 2024 03/09/2021, 08/12/2020, 07/14/2020 Influenza Vaccine (#1) 2024 , 03/25/2019, 03/12/2018 Fall Risk Assessment 03/18/2024 03/18/2023, 03/04/2023, 07/30/2021, Additional history exists DTaP/Tdap/Td Vaccine (2 - Td or Tdap) 01/24/2026 01/25/2016 Zoster Vaccine Completed 02/26/2018, 12/08, 03/06/2007 Medical Devices Implanted Type Area Forge Press Operator Device Identifier Shelf Expiration Date Model / Serial / Lot Pacemaker-2013 Implanted:07/2013 (Quantity not on file) Pacemaker Chest Medtronic Medtronic Inc Kelly S Mri Surescan 50.8x46.6mm 2 Chamber 7.4mm Pacemaker 22.5gm [id number] - [id number] - [id number] Implanted:Qty: 1 on 03/04/2023 by Patrick Brito MD PhD at [facility] Pacemaker Left: Chest Wall Medtronic Inc 07/06/2024 [id number] / [id number] / Insurance T MEDICARE T MEDICARE T MEDICARE Care Teams Center Human Resources Manager Relationship Specialty Start Date End Date Raza Serra MD PCP - General Family Practice 11/04/23
--- OUTSIDE RECORDS SUMMARY | 2024-07-01 05:15 | XMS_ITS | CONTINUITY OF CARE DOCUMENT ---
Author Name gordon sonnyailyn Address Unknown Organization [facility] Address [address] [place] [address] Phone [phone] Care Team Providers Care Joint Cutter Machine Name Role Phone Ana Lilia DELEON, Tavo Unavailable [phone] LIBIA BURROUGHS MD Unavailable [phone] HERB LOU DO Unavailable [phone] PROBLEMS Condition Status Date Provider Notes Chest pain active Sarai Govea RN S/P Medtronic dc (MRI Safe) pm active Sarai Ceballos TIA active Sarai Govea RN Syncope (near) active Sarai Govea RN SVT active Sarai Govea RN Atrial fibrillation, persistent active Sarai Govea RN Sinus node dysfunction active Leonard freitas DO Family History of CVA or Stroke: active ? Madhu Carmona DO ENCOUNTERS Date Type Provider Location Encounter Diag nosis - In-person encounter Office Visit Leonard Carmona DO [facility] - In-person encounter Office Visit Leonard Carmona DO [facility] Office - In-person encounter Office Visit Leonard Carmona DO [facility] Office - In-person encounter Office Visit Leonard Carmona DO [facility] Office - In-person encounter Office Visit Leonard Carmona DO [facility] Office - In-person encounter Office Visit Leonard Laurens [facility] - [facility] Family History of CVA or Stroke: VITAL SIGNS Date Observation Value Provider Body Mass Index (Ratio) 23.48 kg/m2 Willam kraft [facility] blood pressure, cuff size regular Kr ricardo Jacinto blood pressure, diastolic 70 mm[Hg] Nathaniel louis Hahira blood pressure, systolic 120 mm[Hg] Nathanieli brannon [place] oxygen saturation, oximetry 98 % Madhavi [facility]ira pulse rate 64 /min [facility] E&M 20 /min [facility] weight E&M 159 [lb_av] Madhavi Odellby height E&M 69 [in_i] Chastity Sandoval Body Mass Index (Ratio) 23.18 kg/m2 Willam kraft [facility] blood pressure, diastolic 64 mm[Hg] Mi heena [facility] blood pressure, systolic 116 mm[Hg] Itz helle [facility] blood pressure, resting No Michael noé [facility] oxygen saturation, oximetry 96 % Dennise [facility] pulse rate 76 /min Dennise [facility] respiratory rate E&M 18 /min Monica e [facility] weight E&M 157 [lb_av] Dennise [facility] height E&M 69 [in_i] Deninse [facility] Body Mass Index (Ratio) 23.48 kg/m2 Edna Brady PSYCHIATRIC CLINICAL NURSE SPECIALIST blood pressure, diastolic 80 mm[Hg] Joaquin rsha O'Karl blood pressure, systolic 140 mm[Hg] [facility] génesis GuillenKarl oxygen saturation, oximetry 96 % Rianna O'Karl respiratory rate E&M 16 /min [facility] 80 /min [facility] weight E&M 159 [lb_av] [facility] height E&M 69 [in_i] [facility] Body Mass Index (Ratio) 23.89 kg/m2 Jose Eduardo Herndon blood pressure, diastolic 60 mm[Hg] Rh onjessica Samaria blood pressure, systolic 110 mm[Hg] Rho ndveronica Mera blood pressure, cuff size regular Gerson multani Samaria oxygen saturation, oximetry 97 % Sima Mera respiratory rate E&M 16 /min Sima Mera pulse rate 78 /min Sima Mera weight E&M 161.8 [lb_av] Sima Mera height E&M 69 [in_i] Sima Mera Body Mass Index (Ratio) 24.36 kg/m2 Jayda Marsh NP blood pressure, diastolic 55 mm[Hg] Rh onjessica Samaria blood pressure, systolic 99 mm[Hg] Rho niteshveronica Mera blood pressure, cuff size regular Gerson rangel Samaria oxygen saturation, oximetry 96 % Sima Mera pulse rate 65 /min Sima Mera weight E&M 165 [lb_av] Sima Mera height E&M 69 [in_i] Sima Mera Body Mass Index (Ratio) 23.92 kg/m2 Jayda Marsh NP blood pressure, cuff size regular Lorraine Staples blood pressure, diastolic 70 mm[Hg] Lorraine Staples blood pressure, systolic 118 mm[Hg] Radha Staples oxygen saturation, oximetry 93 % Tierra Staples respiratory rate E&M 16 /min Tierra Staples pulse rate 71 /min Tierra Staples weight E&M 162 [lb_av] Tierra Staples height E&M 69 [in_i] Tierra Staples blood pressure, resting No Valery Staples Body Mass Index (Ratio) 23.33 kg/m2 Madhujules abena Carmona DO blood pressure, diastolic 80 mm[Hg] Maxwell Arellanosergo blood pressure, systolic 120 mm[Hg] Dat Arellanosergo oxygen saturation, oximetry 98 % Charu Russo respiratory rate E&M 15 /min Dayday Arellanosergo pulse rate 73 /min Charu torres weight E&M 158 [lb_av] Charu torres height E&M 69 [in_i] Charu torres blood pressure, diastolic 60 mm[Hg] Nathaniel silva Jacinto blood pressure, systolic 102 mm[Hg] Maryan brannon Casey pulse rate 74 /min Madhavi Casey oxygen saturation, oximetry 96 % Madhavi Hahira respiratory rate E&M 16 /min Madhavi Odellby Body Mass Index (Ratio) 23.03 kg/m2 Karri louis Casey weight E&M 156 [lb_av] Madhavi Casey blood pressure, diastolic 74 mm[Hg] Piter Esqueda blood pressure, systolic 122 mm[Hg] Dayday Esqueda pulse rate 63 /min Samaria Esqueda oxygen saturation, oximetry 98 % Samaria Esqueda respiratory rate E&M 14 /min Samaria garcia Body Mass Index (Ratio) 22.89 kg/m2 Kiera Esqueda weight E&M 155 [lb_av] Samaria Esqueda height E&M 69 [in_i] Samaria Esqueda ALLERGIES Allergy Name Onset Date Reaction Criticality Status VOLTAREN Low Criticality active FLU SHOT unknown Low Criticality active RESULTS Date Observation Value Provider Reference Range Interpretation Location 3 prothrombin time (patient) 11.2 s [facility] 9.1-12.0 3 international normalized ratio (INR) 1.1 [facility] 0.9-1.2 3 calcium, serum 9.3 mg/dL [facility] 8.6-10.2 3 carbon dioxide, venous blood 26 mmol/L [facility] 20-29 3 chloride, serum 104 mmol/L [facility] 96-106 3 potassium, serum 4.9 mmol/L [facility] 3.5-5.2 3 sodium, serum 140 mmol/L [facility] 570-878 0062/11/0 3 urea nitrogen/creatinin e ratio, serum 14 [facility] 10-24 3 eGFR if 61 mL/min/{1. 73_m2} [facility] >59 3 eGFR if not 53 mL/min/{1. 73_m2} [facility] >59 Low 3 creatinine, serum 1.28 mg/dL [facility] 0.76-1.27 High 3 urea nitrogen, blood 18 mg/dL [facility] 8-27 3 blood glucose, random 98 mg/dL [facility] 65-99 3 basophil count, absolute 0.0 x10E3/uL [facility] 0.0-0.2 3 Eosinophil Absolute Count 0.1 X10E3/UL [facility] 0.0-0.4 3 monocyte count, blood, automated 0.6 X10E3/UL [facility] 0.1-0.9 3 lymphocyte count, blood, automated 1.5 X10E3/UL [facility] 0.7-3.1 3 Absolute Neutrophils 4.4 X10E3/UL [facility] 1.4-7.0 3 basophils as percent of blood leukocytes 0 % [facility] Not Estab. 3 eosinophils as percent of blood leukocytes 2 % [facility] Not Estab. 3 monocytes as percent of blood leukocytes 10 % [facility] Not Estab. 3 lymphocytes as percent of blood leukocytes 23 % [facility] Not Estab. 3 neutrophils as percent of blood leukocytes 65 % [facility] Not Estab. 3 platelet count 224 X10E3/UL [facility] 478-022 4328/11/0 3 red blood cell distribution width 11.9 % [facility] 11.6-15.4 3 mean corpuscular hemoglobin concentration, RBC 34.7 G/DL [facility] 31.5-35.7 3 mean corpuscular hemoglobin, RBC 32.9 pg [facility] 26.6-33.0 3 mean corpuscular volume, RBC 95 fL [facility] 79-97 3 hematocrit, blood 41.8 % [facility] 37.5-51.0 3 hemoglobin, blood 14.5 g/dL [facility] 13.0-17.7 3 erythrocyte (RBC) count 4.41 X10E6/UL [facility] 4.14-5.80 3 leukocyte count, blood 6.7 X10E3/UL [facility] 3.4-10.8 HISTORY OF MEDICATION USE Medication Status Instructions Dates Provider Indications Com ments ALBUTEROL SULFATE HFA 108 (90 BASE) MCG/ACT INHALATION AEROSOL SOLUTION active INHALE 1 PUFF BY MOUTH EVERY 4 TO 6 HOURS NEEDED FOR SHORTNESS OF BREATH Madhavi Casey #25.5, 90 days supply, Prescribed by SHELBY CURTIS, Filled 09/18/2020 TESTOSTERONE 20.25 MG/1.25GM (1.62%) TRANSDERMAL GEL active APPLY 1 PACKET TOPICALLY ONCE DAILY Madhavi Casey TIA #37.5, 30 days supply, Prescribed by HERB LOU, Filled 09/25/2020 OMEPRAZOLE 20 MG ORAL CAPSULE DELAYED RELEASE active 1 cap daily Sima Mera CIALIS 20 MG TABS (TADALAFIL) completed ONE TAB. DAILY NEEDED - Madhavi Casey PROAIR HFA 108 (90 BASE) MCG/ACT INHALATION AEROSOL SOLUTION completed as directed by monitoring DR - Madhavi Casey ZYRTEC ALLERGY TABLET completed OTC as per package directions - Madhavi Casey AMIODARONE HCL 200 MG ORAL TABLET completed ONE TAB. DAILY - Sarai Govea RN ELIQUIS 5 MG ORAL TABLET active one tablet twice daily Sarai Govea RN SOCIAL HISTORY Date Observation Value Provider social history reviewed E&M revi ewed - no changes required Leonard Carmona DO smoking status Former smoker Jacqui Marinelli brienparam smoking status Former smoker Dennise Anil lindsey smoking status Former smoker Rianna Flavio matthews social history E&M Quit 2003 1 ppd x 4o years Smoking History: Kishor gomez is a former smoker. Sarai Govea RN social history reviewed E&M revi ewed - no changes required Sarai Govea RN smoking status Former smoker Sima Mera smoking status Former smoker Sima Mera smoking status Former smoker Tierra Staples social history E&M Quit 2003 1 ppd x 4o years Smoking History: Kishor gomez is a former smoker. Leonard Carmona DO social history reviewed E&M revi ewed - no changes required Leonard Carmona DO smoking status Former smoker Robel Maximo DERAS social history E&M Quit 2002 1 ppd x 4o years Smoking History: Kishor gomez is a former smoker. Kishor gomez has been counseled to quit. Leonard Carmona DO smoking status Former smoker Leonard navarro DO social history reviewed E&M revi ewed - no changes required Leonard Carmona DO number of grandchildren Leonard Cano Madhavi Casey smoking status Former smoker Leonard Cheek ocveronica GONZALEZ social history reviewed E&M marjorie levine - no changes required Leonard Carmona DO social history E&M S moking History: Kishor gomez is a former smoker. Q uit 2002 1 ppd x 4o years Samaria Esqueda FAMILY HISTORY Family Member Condition Full Brother Family History of Pr ostate Cancer: Full Brother Family History of Co ronary Artery Disease: Father Family History of CV A or Stroke: Mother Family History of Co ronary Artery Disease: INSURANCE PROVIDERS Payer name Policy type / Coverage type [place] red republican ID [facility] MEDICARE ADVANTAGE (PPO) Other [id number] ADVANCE DIRECTIVES Name Date POWER OF FEEDER CATCHER TREATMENT PLAN Date Name Performer Electrophysiology:at ria therapies turned on p ost afib ablation 02/2016 Leonard Carmona DO Electrophysiology:Jorge archer hx of afib s/p ablation 02/16/2016. 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 Brad perez was previously on amio but this was discontinued due to headaches in 2013. Brad perez has a history of TIA, SVT, near syncope and SSS with DDD PPM in 2013 . R ecent device check shows that patient was in afib for most of the day 09/17/2020, but other than that day he has been doing well. Leonard Carmona DO Electrophysiology PSYCHIATRIC CLINICAL NURSE SPECIALIST :patient is staying in [facility] with the exception of a few days in Jun 2020 when he had some surgery. Otherwise he is not on any medication, and we will allow him some time to settle in and see how he does after he is able to get out a little more once the weather is a bit warmer. No changes to his care at this time. O rders: Param KG (CPT-[id number]) Awilda Haro PSYCHIATRIC CLINICAL NURSE SPECIALIST Electrophysiology: u jessikale to tolerate amiodarone. 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 n o recurrences Alea Brady PSYCHIATRIC CLINICAL NURSE SPECIALIST Electrophysiology: d ual chamber pacemaker n o syncopal episodes recorded Orders: S chedule ICD Check (*) S chedule Followup (*) Alea Brady PSYCHIATRIC CLINICAL NURSE SPECIALIST Electrophysiology: a trial therapies turned on p ost ablation 02/22 o ne episode of afib lasting 1 hour Orders: S chedule ICD Check (*) S chedule Followup (*) 04/04/20 d evice check reveals AF Alea Brady PSYCHIATRIC CLINICAL NURSE SPECIALIST Electrophysiology - review/sign~M:s/p ablation 2013 for SVT & AVNRT n o recurrences Sarai Govea RN Electrophysiology - review/sign~M:unable to tolerate amiodarone. 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 C ontinues to have brief episodes of PAF, tolerating well, off Amio since 12/22 a trial burden @ 1.1% 03/30/19 Sarai Govea RN Electrophysiology: brien bunch to tolerate amiodarone r emains on eliquis with prior tia S /P PVI 02/22, now with brief PAF, tolerating well, off amio since 12/22 r efuses yanet treatment < 0.4% at/af Robel Marsh NP Electrophysiology - [facility] letter sent: brien bunch to tolerate amiodarone r emains on eliquis with prior tia S /P PVI 02/22, now with brief PAF, tolerating well, off amio since 12/22 r efuses yanet treatment < 0.1% at/af Robel Marsh NP EP :Turned on Atrial therapies. brien bunch to tolerate amiodarone and remains on eliquis with prior tia S /P PVI 02/22, now with brief PAF, tolerating well, off amio since 12/22 O rders: E KG (CPT-[id number]) Leonard Carmona DO EP : O rders: S chedule ICD Check (*) S chedule Followup (*) Robel Marsh PSYCHIATRIC CLINICAL NURSE SPECIALIST EP :atrial therapies turned on p ost ablation 02/22 o ne episode of afib lasting 1 hour Orders: S chedule ICD Check (*) S chedule Followup (*) Robel Marsh PSYCHIATRIC CLINICAL NURSE SPECIALIST EP :dual chamber pac emaker n o syncopal episodes recorded Orders: S chedule ICD Check (*) S chedule Followup (*) Robel Marsh PSYCHIATRIC CLINICAL NURSE SPECIALIST EP :Turned on Atrial therapies. u nable to tolerate amiodarone and remains on eliquis with prior tia S /P PVI 02/22, with no recurrences, off amio since 12/22 O rders: E KG (CPT-[id number]) Robel Marsh [place] EP:S/P DDD PPM n ormal function. 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 d iscussed ablation wtih PVI and also trying another antiarrhythmic. h e will decide if he wants to consider PVI. Leonard Carmona DO Date Name PROTHROMBIN TIME WIT H INR CBC (INCLUDES DIFF/P LT) BASIC METABOLIC PANE L W/EGFR HISTORY OF PROCEDURES Procedure Date Procedure Name Provider Procedure Notes S tatus EKG Leonard Carmona DO completed EKG Leonard Carmona DO completed EKG Leonard Carmona DO completed EKG Leonard Carmona DO completed ICM Interrogation, Remote (Prof) Leonard Carmona DO INTERROGATION EVAL REMOTE </30 D CV MNTR SYS completed ICM Interrogation, Remote (Tech) Leonard Laurens DO INTERROGATION EVAL REMOTE </30 D TECH REVIEW completed Pacemaker Interrogation, Remote (Tech) Leonard Laurens DO INTERROGATION REMOTE </90 D METAL WORK DUCT INSTALLER REVIEW completed Pacemaker Interrogation, Remote (Prof) Leonard Laurens DO INTERROGATION EVAL REMOTE </90 D 1/2/PLANNER INTERNSHIP LEAD P completed Pacemaker Interrogation, Remote (Tech) Leonard Laurens DO INTERROGATION REMOTE </90 D METAL WORK DUCT INSTALLER REVIEW completed Pacemaker Interrogation, Remote (Prof) Leonard Laurens DO INTERROGATION EVAL REMOTE </90 D 1/2/PLANNER INTERNSHIP LEAD P completed Schedule Pacer Check Leonard Glas cock DO completed Schedule Followup Leonard Glascoc k DO completed EKG Leonard Laurens DO completed Pacemaker Interrogation, Remote (Tech) Leonard Laurens DO INTERROGATION REMOTE </90 D METAL WORK DUCT INSTALLER REVIEW completed Pacemaker Interrogation, Remote (Prof) Leonard Laurens DO INTERROGATION EVAL REMOTE </90 D 1/2/PLANNER INTERNSHIP LEAD P completed Pacemaker Interrogation, Remote (Tech) Leonard Laurens DO INTERROGATION REMOTE </90 D METAL WORK DUCT INSTALLER REVIEW completed Pacemaker Interrogation, Remote (Prof) Leonard Laurens DO INTERROGATION EVAL REMOTE </90 D 1/2/PLANNER INTERNSHIP LEAD P completed Pacemaker Interrogation, Remote (Tech) Leonard Laurens DO INTERROGATION REMOTE </90 D METAL WORK DUCT INSTALLER REVIEW completed Pacemaker Interrogation, Remote (Prof) Leonard Laurens DO INTERROGATION EVAL REMOTE </90 D 1/2/PLANNER INTERNSHIP LEAD P completed Schedule Pacer Check Leonard Glas cock DO completed Schedule Followup Leonard Glascoc k DO completed EKG Leonard Laurens DO completed SNOMED-CT: [id number] Current Medications Documented Leonard Laurens DO completed Pacemaker Interrogation, Remote (Tech) Leonard Laurens DO INTERROGATION REMOTE </90 D METAL WORK DUCT INSTALLER REVIEW completed Pacemaker Interrogation, Remote (Prof) Leonard Laurens DO INTERROGATION EVAL REMOTE </90 D 1/2/PLANNER INTERNSHIP LEAD P completed Pacemaker Interrogation, Remote (Tech) Leonard Laurens DO INTERROGATION REMOTE </90 D METAL WORK DUCT INSTALLER REVIEW completed Pacemaker Interrogation, Remote (Prof) Leonard Laurens DO INTERROGATION EVAL REMOTE </90 D 1/2/PLANNER INTERNSHIP LEAD P completed Schedule Followup Robel Hu PSYCHIATRIC CLINICAL NURSE SPECIALIST in six months com pleted Schedule ICD Check Robel Hu PSYCHIATRIC CLINICAL NURSE SPECIALIST in six months co mpleted EKG Leonard Carmona DO completed SNOMED-CT: [id number] Current Medications Documented Leonard Carmona DO completed Pacemaker Interrogation, Remote (Tech) Leonard Laurens DO INTERROGATION REMOTE </90 D METAL WORK DUCT INSTALLER REVIEW completed Pacemaker Interrogation, Remote (Prof) Leonard Laurens DO INTERROGATION EVAL REMOTE </90 D 1/2/PLANNER INTERNSHIP LEAD P completed EKG Leonard Hadleyck DO completed SNOMED-CT: [id number] Current Medications Documented Leonard Hadleyck DO completed EKG Sarai Govea RN completed SNOMED-CT: [id number] Current Medications Documented Leonard Hadleyck DO completed EKG Leonard Carmona DO completed
--- OUTSIDE RECORDS SUMMARY | 2024-07-01 05:15 | XMS_ITS | Clinical Summary ---
Author Organization [facility] Address [address] [place] [address] Phone Care Team Providers Care Gang Pusher Name Role Phone Unavailable Primary Care Provider Unavailabl e Social History Tobacco Use Types Packs/Day Years Used Date Smoking Tobacco: Never Assessed Sex and Gender Information Value Date Recorded Sex Assigned at Not on file Legal Sex Male 12:23 PM [employer] Gender Identity Not on file Sexual Orientation Not on file Plan of Treatment Health Maintenance Due Date Last Done Comments Hepatitis C Virus (HCV) Screening 1940 Respiratory Syncytial Virus (RSV) Immunization (Adult) (1 - 1-dose 75+ series) 12/17/2015 Pneumococcal Immunization (50+ years) (2 of 2 - PPSV23) 01/31/2017 02/01/2016 Influenza Immunization (#1) 02/08/202402/07, 03/25/2019, 03/12/2018 SARS-COV-2 Immunization ( season) 2024 DTaP/Tdap/Td Immunization Discontinued 01/25/2016 TdaP Immunization Completed 01/25/2016 Pneumococcal Immunization Combined Discontinued 02/01/2016 Zoster Immunization Completed 02/26/2018, 12/28/2017, 03/06/2007 Hepatitis B Immunization Aged Out No longer eligible based on patient's age to complete this topic Meningococcal Immunization (ACWY) Aged Out No longer eligible based on patient's age to complete this topic Rotavirus Immunization Aged Out No lo nger eligible based on patient's age to complete this topic
--- OUTSIDE RECORDS SUMMARY | 2024-07-01 05:15 | XMS_ITS | Encounter Summary ---
Author Organization [facility] Address [address] [place] [address] Care Team Providers Care Career Technology Teacher Name Role Phone Sawyer Brown MD Primary Care Provider Unavail able aSwyer Brown MD Primary Care Provider Unavail able Eduardo Marin DO Primary Care Provider [phone] Sawyer Brown MD Primary Care Provider Unavail able Eduardo Marin DO Primary Care Provider [phone] Encounter Details Date Type Department Care Team (Late st Contact Info) Description 02/11/2018 Lab Requisition [facility] [address] [place] [address] Marc Miller MD [address] [place] [address] Social History Tobacco Use Types [...] Priority Date/Time Associated Diagnosis Comments DERMATOPATHOLOGY Routine 02/10/2018 12:0 0 AM CDT documented in this encounter Results * DERMATOPATHOLOGY (02/10/2018 12:00 AM CDT) Case Report Dermatopathology Report ? Case: [id number] ? Authorizing Provider: ??Marc Miller MD ?Collected: ? 02/10/2018 12:00 AM ? Pathologist: ? Rakesh Vickers MD ? Received: ?02/11/2018 12:19 PM ? Specimens: ?? A) - Skin, right lateral arm above elbow ? B) - Skin, left lateral elbow ? C) - Skin, right mid jawline ? 4:13 PM CDT DERMATOPATHOLOGY LABORATORY Final Diagnosis Specimen A. 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 SKIN, left lateral elbow: SOLAR LENTIGO (L81.4) DERMAL HEMORRHAGE (I99.8) (see microscopic description) Specimen C. 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 B: R/O bruise vs lentigo vs other. C: R/O lentigo, SK, nevus, dys nevus. 4:13 PM [facility]ERMAT[facility]Y [facility]ORAT[facility] Gross Description Specimen A: Received is one formalin filled container labeled with the patient's name and designated right lateral arm above elbow. The specimen consists of a shave biopsy measuring [id number]. Jar 0. Specimen B: Received is one formalin filled container labeled with the patient's name and designated left lateral elbow. The specimen consists of a shave biopsy measuring [id number]. Jar 0. Specimen C: Received is one formalin filled container labeled with the patient's name and designated right mid jawline. The specimen consists of a shave biopsy measuring [id number]. Jar 0. 4:13 PM [facility]ERMATOPATHOLOGY [facility]ORATORY Microscopic Description Specimen A. SKIN, right lateral arm above elbow: Sections show acanthosis, papillomatosis, hyperkeratosis, and squamous eddies. There is a lymphohistiocytic infiltrate within the papillary dermis. Specimen B. SKIN, left lateral elbow: There is orthokeratosis. There is a slight increase in epidermal thickness with lentiginous buds of hyperpigmented keratinocytes. The number of melanocytes is only mildly increased. In the dermis, there is basophilic degeneration of elastic fibers. There is also dermal hemorrhage with scattered hemosiderophages. Specimen C. SKIN, right mid jawline: Sections show a junctional melanocytic proliferation. There is a lentiginous proliferation of melanocytes between irregular nests. Scattered melanocytes show evidence of upward migration within the epidermis. The melanocytes are highlighted by MART-1/Melan-A. This lesion is present at the margin of the specimen. 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 Because this lesion is present at the margin of the specimen, a complete but conservative re-excision is recommended to evaluate this lesion in its entirety. 8 4:13 PM [facility]ERMAT[facility] Disclaimer An external and internal positive and negative controls are appropriate for the histochemical, immunohistochemical and immunofluorescence stain(s) in this case (if any), except where stated explicitly. The performance characteristics of the stain(s) cited in this report were developed and its performance characteristic determined by the Dermatopathology Laboratory at [facility]. These tests need not be, and therefore are not, approved by the [place] Food and Drug Administration. The tests are used for clinical purposes. Billing Codes Specimen Charges Stain Charges 31134 18120 29310 1 1 1 60016 1 8 4:13 PM CDT DERMATOPATHOLOGY LABORATORY Embedded Images 8 4:13 PM CDT DERMATOPATHOLOGY LABORATORY Pathology/Cytology TISSUE SPECIMEN FROM SKIN / Unknown 02/10/2018 02/11/2018 12:19 PM CDT Miscellaneous samples (specimen) TISSUE SPECIMEN FROM SKIN / Unknown 02/10/2018 02/11/2018 12:19 PM CDT Miscellaneous samples (specimen) TISSUE SPECIMEN FROM SKIN / Unknown 02/10/2018 02/11/2018 12:19 PM CDT Marc Miller MD LAB - PATHOLOGY/CYTO LOGY ORDERABLES Performing Organization Address City/State/[facility] Co de Phone Number DERMATOPATHOLOGY LABORATORY [facility] - Department of Dermatology [address] [place] [address], 5[address] Floor Lab [address] [phone] documented in this encounter Visit Diagnoses Not on filedocumented in this encounter Care Teams Career Technology Teacher Relationship Specialty Start Date End Date Sawyer Brown MD PCP - General 10/02/17 04/23/20 Sawyer Brown MD NEED INFORMATION UPDATED PCP - General 04/24/20 0 Eduardo Marin DO [address] [place] [address] PCP - General Internal Medicine 05/08/20 06/22/20 Sawyer Brown MD NEED INFORMATION UPDATED PCP - General 06/23/20 05/13/21 Eduardo Marin DO [address] [place] [address] PCP - General Internal Medicine 05/14/21 documented as of this encounter
--- OUTSIDE RECORDS SUMMARY | 2024-07-01 05:15 | XMS_ITS | Continuity of Care Document ---
Author Organization [facility] Address [address] [place] [address] Phone Care Team Providers Care Tube Station Attendant Name Role Phone Jaron Shaw Unavailable Unavailable Procedures Procedure Date Office/outpatient Visit, Est Office/outpatient Visit, Est Office/outpatient Visit, Est No Script Office/outpatient Visit, Est Advance Directives Directive Yes / No Effective Date File Name No Information Encounters Encounter Description Practice Location Reason(s) For Visit Diagnoses Date Provider Providers Copied on Encounter Office/outpat ient Visit, [facility], [address] [place] [address] [address], [place], [place], [id number], [place] tel:[phone] [facility] No Information 0 Colin Salmeron. [facility] [address] , [address], [place], [place], [facility], [place]. tel:[phone] Office/outpat ient Visit, [facility], [address] [place] [address] [address], [place], [place], [id number], [place] tel:[phone] [facility] No Information Jan-0 -201 0 Janene Diaz. [address], [place], [place], [facility], [place]. tel:[phone] Office/outpat ient Visit, [facility], [address] [place] [address] [address], [place], [place], [id number], [place] tel:[phone] [facility] No Information [address], [place], [address], [place]. tel:[phone] Office/outpat ient Visit, [facility], [address], [place], [place], [id number], [place] tel:[phone] [facility] No Information 9-[address]. [address] , [address], [place], [address], [place]. tel:[phone] Family History Family Member Type Diagnosis Age At Onset No Information Payers Payer name Insurance type Covered libertarian ID Authoriza tion(s) [place] [id number] Social History Type Description Quantity Date Captured Comments Sex Male Smoking Status No Information Chief Complaint And Reason For Visit No Information Reason For Referral Reason For Referral No Information History Of Present Illness Encounter Date Complaint History Of Prese nt Illness No Information Functional Status Date Functional Assessmen t No Information Instructions Date Instruction Additional Infor mation No Information Assessments Type Assessment Date No Information Patient Care Teams Name Effective Dates (start - stop) Status Members No Information
== END 2024-06-25 07:58 | disposition home or self-care (01) ==
LOC: ANHIMG 07:58
PROVIDERS: PCP Family Medicine; Visit Provider Family Medicine
DX: M70.72 Other bursitis of hip, left hip (principal); M16.0 Bilateral primary osteoarthritis of hip
CPT/HCPCS: 72192

== ENCOUNTER 2024-10-18 00:07 | Day surgery (SDC) | payer MEDICARE, SELFPAY ==
[2024-06-10 14:53] VITALS: BMI 22.1
--- NOTE | 2024-06-10 15:17 | PC.NURSE ---
Spoke with _PATIENT_ regarding medication _ELIQUIS_. _PATIENT_verbalizes understanding that the last dose is to be taken on _06/10/2024__ and the Endoscopist will instruct them when to restart after the procedure.
[2024-10-08 11:13] VITALS: BMI 21.9
--- NOTE | 2024-10-13 14:56 | SUR.PREOP ---
Spoke with patient in regards to his Eliquis. Patient verbalized understanding that his last dose of Eliquis will be on 10/14/2024 and the endoscopist with inform him when to resume.
--- OUTSIDE RECORDS SUMMARY | 2024-10-18 00:12 | XMS_ITS | Referral Summary ---
Author Organization [facility] Address [address] [place] [phone] Care Team Providers Care Document Reviewer Name Role Phone Raza Serra MD Primary Care Provider [phone] Encounters Date Type Department Care Team Description 10/15/2024 Results Follow-Up [facility] Cardiology [address] [place] [address] [place] [phone] Ivan Burroughs MD 10/12/2024 10:15 AM CDT Ancillary Procedure [facility] Cardiology [address] [place] [address] Chronic diastolic (congestive) heart failure (HCC) 10/11/2024 Telephone [facility] Pulmonary [address] [facility] 8th [place] [address] [place] [phone] Jaron Rider RN 10/11/2024 Telephone [facility] Cardiology [address] [place] [address] [place] [phone] Ivan Burroughs MD 09/13/2024 Orders Only [facility] Cardiology [address] [facility] Medical Office Building [address] [place] [address] Patrick Brito MD PhD 08/20/2024 10:30 AM CDT Office Visit [facility] Cardiology [address] [place] [address] [place] [phone] Ivan Burroughs MD Chronic diastolic (congestive) heart failure (HCC) (Primary Dx); SSS (sick sinus syndrome) (HCC); Pacemaker; Longstanding persistent atrial fibrillation (HCC); Chronic anticoagulation 08/03/2024 Orders Only [facility] Pulmonary [address] [facility] 8th [place] [address] [place] [address] Jaron Rider RN Chronic obstructive pulmonary disease with acute exacerbation (HCC) (Primary Dx) 08/03/2024 2:30 PM CYCLE ANALYST Office Visit [facility] Pulmonary [facility] 8th [place] [address] [place] [address] Brandon Estveez MD Physical deconditioning (Primary Dx); Chronic obstructive pulmonary disease with acute exacerbation (HCC); Evidence of airways hyperreactivity without diagnosis of asthma; Dyspnea on exertion 08/03/2024 1:28 PM CYCLE ANALYST - 08/03/2024 11:59 PM CYCLE ANALYST Hospital Encounter [facility] Pulmonary [address] [facility] [address] [place] [address] Chronic obstructive pulmonary disease with acute exacerbation (HCC) Discharge Disposition: Discharge to home or self care from Last 3 Months Allergies Active Allergy [...] mg total) by mouth every morning Active tocou-dhrtn-3-d [id number]-[id number] [id number] mg capsuleIndicati ons:supplement Take 1 capsule by mouth every morning Active cholecalciferol (VITAMIN D-3) 5,000 unit tabletIndicatio ns:supplement Take 1 tablet (5,000 Units total) by mouth every morning Active cyanocobalamin/ folic acid (vitamin C29-dcwyz acid) 500-400 mcg tabletIndicatio ns:Vitamin Deficiency Prevention every morning Activ e testosterone 20.25 mg/1.25 gram (1.62 %) gel in metered-dose pump nightly 3 Active traZODone (DESYREL) 50 mg tablet Take 1 tablet (50 mg total) by mouth nightly as needed for sleep 3 Active Eliquis 5 mg tablet TAKE 1 TABLET BY MOUTH TWICE DAILY 180 tablet 2 4 Active Jardiance 10 mg tablet TAKE 1 TABLET(10 MG) BY MOUTH DAILY 30 tablet 11 4 Active umeclidinium-vi lanteroL (ANORO ELLIPTA) 62.5-25 mcg/actuation blister with device Inhale 1 puff daily 30 each 11 5 Active predniSONE (DELTASONE) 10 mg tablet Take 1 tablet (10 mg) by mouth 2 (two) times a day 5 Active Xdemvy 0.25 % drops INSTILL 1 DROP INTO BOTH EYES 2 TIMES A DAY FOR 6 WEEKS 5 Active tadalafiL (CIALIS) 20 mg tablet TAKE 1 TABLET(20 MG) BY MOUTH DAILY NEEDED FOR ERECTILE DYSFUNCTION 10 tablet 3 5 Active predniSONE (DELTASONE) 20 mg tablet Take 2 tablets (40 mg) by mouth daily 10 tablet 5 Active azithromycin (ZITHROMAX) 250 mg tablet Take 2 by mouth today then 1 daily for 4 days 6 tablet 5 10/17/19 Active Problems Problem Noted Date Diagnosed Date Hospital discharge follow-up 02/05/2023 Chronic diastolic CHF (congestive heart failure) 02/05/2023 Pacemaker 02/05/2023 SSS (sick sinus syndrome) 02/05/2021 Fitting and adjustment of cardiac pacemaker [...] hand, left - Left 03/02/2018 Atrial fibrillation 04/19/2014 Overview (09/13/2016): 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 0 02/04/2013 Chronic obstructive pulmonary disease Immunizations Immunization Administration Dates Next Due Pfizer SARS-CoV-2 Monovalent Vaccination (12+ Yrs) PURPLE 08/12/2020,07/14/2020 Social History Tobacco Use Types Packs/Day Years Used Date Smoking Tobacco: Former Cigarettes Smokeless Tobacco: Never Tobacco Cessation:Counseling Given: Not [...] on file Legal Sex Male 2:40 PM CYCLE ANALYST Gender Identity Male 01/29/2021 1:05 PM CDT Sexual Orientation Straight 01/29/2021 1: 05 PM CDT Last Filed Vital Signs Vital Sign Reading Time Taken Comments Blood Pressure 134/69 08/20/2024 10:49 AM CDT Pulse 61 08/20/2024 10:49 AM CDT Temperature 36.3 C (97.3 F) 08/03/2024 2:24 PM CYCLE ANALYST Respiratory Rate 18 08/03/2024 2:24 PM CYCLE ANALYST Oxygen Saturation 97% 08/20/2024 10:49 AM CDT Inhaled Oxygen Concentration - - Weight 66.7 kg (147 lb) 08/20/2024 10:49 AM CDT Height 172.7 cm (5' 8 ) 08/20/2024 10:49 AM CDT Body Mass Index 22.35 08/20/2024 10:49 AM CDT Plan of Treatment Not on file Medical Devices Implanted Type Area Inspector Outside Steam Distribution Device Identifier Shelf Expiration Date Model / Serial / Lot Pacemaker-2013 Implanted:07/2013 (Quantity not on file) Pacemaker Chest Medtronic Med[employer] Bowdle S Mri Surescan 50.8x46.6mm 2 Chamber 7.4mm Pacemaker 22.5gm [id number] - [id number] - [id number] Implanted:Qty: 1 on 03/04/2023 by Patrick Brito MD PhD at [facility] Pacemaker Left: Chest Wall Med[employer]onic Inc 07/06/2024 [id number] / [id number] / Procedures Procedure Name Priority Date/Time Associated Diagnosis Comments TRANSTHORACIC ECHO (TTE) COMPLETE W DOPPLER/CF WO CONTRAST Routine 10/12/2024 10:47 AM CDT Chronic diastolic (congestive) heart failure (HCC) DEVICE CHECK - REMOTE Routine 09/13/2024 1:48 AM CDT PULMONARY FUNCTION TEST (PFT) Routine 08/03/2024 1:46 PM CYCLE ANALYST Chronic obstructive pulmonary disease with acute exacerbation (HCC) from Last 3 Months Results * TRANSTHORACIC ECHO (TTE) COMPLETE W DOPPLER/CF WO CONTRAST (10/12/2024 10:47 AM CDT) Estimated EF 55-60 % CONS SCIMAGE EF Mod BP 56 % CONS SCIMAGE Anatomical Region Laterality Modality Ultrasound 10/12/2024 10:2 6 AM CDT Narrative 10/13/2024 8:10 AM CDT [facility] Cardiology [address], [place] [address] [address], [place] [address] P:[phone] P:[phone] Echocardiographic Report Patient Name: ERIBERTO MANCINI L : 1940 Study Date: 10/12/2024 10:26:12 AM Gender: M Tech: Location: [facility] Provider: IVAN BURROUGHS Height(Cm): 173 BSA: 1.79 Weight(Kg): 66.7 Heart Rate: 91 BP: 134 / 69 Quality: Good Order Provider: IVAN BURROUGHS PROCEDURES: Echocardiographic Report: Transthoracic echocardiogram with complete 2D, M-Mode, and color Doppler examination. With Strain Analysis. INDICATIONS: I50.32 Chronic diastolic (congestive) heart failure. MEASUREMENTS: 2D/MM Value Range Doppler Value Range EF Mod BP 56 % [ 52 - 72 ] AV Mean PG 6 mmHg EF Teich MM 68 % [ 52 - 72 ] AV Peak Zan 1.61 m/s [ 1.00 - 1.70 ] Estimated EF 55-60 % AV Peak PG 10 mmHg LVIDd 2D 4.77 cm [ 4.20 - 5.80 ] AV VTI 27.93 cm LVIDd MM 5.51 cm [ 4.20 - 5.80 ] LVOT Peak Zan 1.24 m/s [ 0.70 - 1.10 ] LVIDs 2D 2.60 cm [ 2.50 - 4.00 ] LVOT VTI 23.27 cm LVIDs MM 3.41 cm [ 2.50 - 4.00 ] MV E Peak Zan 0.76 m/s [ 0.60 - 1.30 ] LVPWd MM 1.10 cm [ 0.60 - 1.00 ] MV Decel Time 237 msec [ 104 - 258 ] IVSd 2D 1.23 cm [ 0.60 - 1.00 ] PV Peak Zan 1.10 m/s [ 0.40 - 0.80 ] IVSd MM 1.33 cm [ 0.60 - 1.00 ] TR Peak Zan 2.71 m/s [ 1.00 - 2.80 ] LA Dimension MM 5.29 cm [ 3.00 - 4.00 ] TR Peak PG 29 mmHg AoR Diam MM 4.28 cm [ 3.10 - 3.70 ] RVSP 37.00 mmHg [ 10.00 - 36.00 ] LA Volume Index 64 cc/m2 [ 16 - 34 ] Lateral E` 0.13 m/s [ 0.10 - 0.15 ] ACS MM 2.17 cm [ 1.50 - 2.60 ] E` 0.05 m/s E/E` 6 2D/MM Value Range Doppler Value Range - FINDINGS: Interpretation Site: Exam was interpreted at [facility]. Left Ventricle: Normal left ventricular systolic function. No focal wall motion abnormalities. Normal left ventricular size. Moderate concentric left ventricular hypertrophy. Diastolic dysfunction is present. Ejection fraction is measured at 56 %. Ejection Fraction is visually estimated to be 55-60 %. Global Longitudinal Strain is -16 %. Right Ventricle: Normal right ventricular size. Normal right ventricular systolic function. Linear artifact in right ventricle suggestive of catheter(s), pacemaker lead(s), or ICD lead(s). Left Atrium: There is severe enlargement of left atrium. Right Atrium: There is severe enlargement of right atrium. Atrial Septum: Normal atrial septum. Mitral Valve: Normal appearance of the mitral valve. Mild mitral valve regurgitation. There is no hemodynamically significant mitral stenosis by Doppler. Aortic Valve: No evidence of hemodynamically significant aortic stenosis by Doppler. Aortic cusps appear moderately sclerotic. Trileaflet aortic valve. Mild to moderate aortic valve regurgitation. Tricuspid Valve: Normal appearance of the tricuspid valve. Mild pulmonary hypertension based on right ventricular systolic pressure. Estimated peak RVSP is 37 mmHg. Mild tricuspid regurgitation. Pulmonic Valve: Normal appearance of the pulmonic valve. No pulmonic stenosis. Mild pulmonic regurgitation. Pericardium: Normal pericardium with no significant pericardial effusion. Aorta: Normal aortic root. Sinus of Valsalva is dilated. Sinus of Valsalva 4.3 cm. IVC: Dilated IVC with respiratory collapse consistent with elevated right atrial pressure (10-15 mmHg). CONCLUSIONS: Normal left ventricular systolic function. No focal wall motion abnormalities. Normal left ventricular size. Moderate concentric left ventricular hypertrophy. Diastolic dysfunction is present. Ejection fraction is measured at 56 %. Ejection Fraction is visually estimated to be 55-60 %. Global Longitudinal Strain is -16 %. Normal right ventricular size. Normal right ventricular systolic function. Linear artifact in right ventricle suggestive of catheter(s), pacemaker lead(s), or ICD lead(s). There is severe enlargement of left atrium. There is severe enlargement of right atrium. Mild mitral valve regurgitation. Aortic cusps appear moderately sclerotic. Mild to moderate aortic valve regurgitation. Mild pulmonary hypertension based on right ventricular systolic pressure. Estimated peak RVSP is 37 mmHg. Mild tricuspid regurgitation. Mild pulmonic regurgitation. Normal aortic root. Sinus of Valsalva is dilated. Sinus of Valsalva 4.3 cm. Ventricular paced rhythm. Electronically Signed By: Artie Moss MD 10/13/2024 8:09:46 AM CDT Procedure Note Artie Moss MD - 10/13/2024 [facility] Cardiology [address] [facility] [address], [place] [address] [address] [facility] [address], [place] [address] P:[phone] P:[phone] Echocardiographic Report Patient Name: ERIBERTO MANCINI L : 1940 Study Date: 10/12/2024 10:26:12 AM Gender: M Tech: Location: [facility] Provider: IVAN BURROUGHS Height(Cm): 173 BSA: 1.79 Weight(Kg): 66.7 Heart Rate: 91 BP: 134 / 69 Quality: Good Order Provider: IVAN BURROUGHS PROCEDURES: Echocardiographic Report: Transthoracic echocardiogram with complete 2D, M-Mode, and color Dopplerexamination. With Strain Analysis. INDICATIONS: I50.32 Chronic diastolic (congestive) heart failure. MEASUREMENTS: 2D/MM Value Range Doppler ValueRange EF Mod BP 56 % [ 52 - 72 ] AV Mean PG 6mmHg EF Teich MM 68 % [ 52 - 72 ] AV Peak Zan 1.61m/s [ 1.00 - 1.70 ] Estimated EF 55-60 % AV Peak PG 10mmHg LVIDd 2D 4.77 cm [ 4.20 - 5.80 ] AV VTI 27.93cm LVIDd MM 5.51 cm [ 4.20 - 5.80 ] LVOT Peak Zan 1.24m/s [ 0.70 - 1.10 ] LVIDs 2D 2.60 cm [ 2.50 - 4.00 ] LVOT VTI 23.27cm LVIDs MM 3.41 cm [ 2.50 - 4.00 ] MV E Peak Zan 0.76m/s [ 0.60 - 1.30 ] LVPWd MM 1.10 cm [ 0.60 - 1.00 ] MV Decel Time 237msec [ 104 - 258 ] IVSd 2D 1.23 cm [ 0.60 - 1.00 ] PV Peak Zan 1.10m/s [ 0.40 - 0.80 ] IVSd MM 1.33 cm [ 0.60 - 1.00 ] TR Peak Zan 2.71m/s [ 1.00 - 2.80 ] LA Dimension MM 5.29 cm [ 3.00 - 4.00 ] TR Peak PG 29mmHg AoR Diam MM 4.28 cm [ 3.10 - 3.70 ] RVSP 37.00mmHg [ 10.00 - 36.00 ] LA Volume Index 64 cc/m2 [ 16 - 34 ] Lateral E` 0.13m/s [ 0.10 - 0.15 ] ACS MM 2.17 cm [ 1.50 - 2.60 ] E` 0.05m/s E/E` 6 2D/MM Value Range Doppler ValueRange - FINDINGS: Interpretation Site: Exam was interpreted at [facility]. Left Ventricle: Normal left ventricular systolic function. No focal wall motionabnormalities. Normal left ventricular size. Moderate concentric left ventricular hypertrophy.Diastolic dysfunction is present. Ejection fraction is measured at 56 %. EjectionFraction is visually estimated to be 55-60 %. Global Longitudinal Strain is -16 %. Right Ventricle: Normal right ventricular size. Normal right ventricular systolic function.Linear artifact in right ventricle suggestive of catheter(s), pacemaker lead(s),or ICD lead(s). Left Atrium: There is severe enlargement of left atrium. Right Atrium: There is severe enlargement of right atrium. Atrial Septum: Normal atrial septum. Mitral Valve: Normal appearance of the mitral valve. Mild mitral valve regurgitation.There is no hemodynamically significant mitral stenosis by Doppler. Aortic Valve: No evidence of hemodynamically significant aortic stenosis by Doppler.Aortic cusps appear moderately sclerotic. Trileaflet aortic valve. Mild to moderateaortic valve regurgitation. Tricuspid Valve: Normal appearance of the tricuspid valve. Mild pulmonary hypertensionbased on right ventricular systolic pressure. Estimated peak RVSP is 37 mmHg. Mildtricuspid regurgitation. Pulmonic Valve: Normal appearance of the pulmonic valve. No pulmonic stenosis. Mildpulmonic regurgitation. Pericardium: Normal pericardium with no significant pericardial effusion. Aorta: Normal aortic root. Sinus of Valsalva is dilated. Sinus of Valsalva 4.3cm. IVC: Dilated IVC with respiratory collapse consistent with elevated rightatrial pressure (10-15 mmHg). CONCLUSIONS: Normal left ventricular systolic function. No focal wall motionabnormalities. Normal left ventricular size. Moderate concentric left ventricular hypertrophy.Diastolic dysfunction is present. Ejection fraction is measured at 56 %. EjectionFraction is visually estimated to be 55-60 %. Global Longitudinal Strain is -16 %. Normal right ventricular size. Normal right ventricular systolic function.Linear artifact in right ventricle suggestive of catheter(s), pacemaker lead(s),or ICD lead(s). There is severe enlargement of left atrium. There is severe enlargement of right atrium. Mild mitral valve regurgitation. Aortic cusps appear moderately sclerotic. Mild to moderate aortic valveregurgitation. Mild pulmonary hypertension based on right ventricular systolic pressure.Estimated peak RVSP is 37 mmHg. Mild tricuspid regurgitation. Mild pulmonic regurgitation. Normal aortic root. Sinus of Valsalva is dilated. Sinus of Valsalva 4.3cm. Ventricular paced rhythm. Electronically Signed By: Artie Moss MD 10/13/2024 8:09:46 AM CDT Ivan Burroughs MD CV ECHO PROCEDURES Final Result * DEVICE CHECK - REMOTE (09/13/2024 1:48 AM CDT) Anatomical Region Laterality Modality Other 09/13/2024 1:48 AM CDT Narrative 09/25/2024 4:42 PM CDT Interpretation Summary: Battery and Leads (BL) Normal parameters noted on battery and lead(s) --- 12.7 yrs remaining longevity. Lead impedance, RA sensing, and RV threshold trends stable and appropriate. No short V-V intervals. R wave out of range --- R wave 4.0 mV. Trend is stable. RV sensitivity is programmed 0.9 mV. Presenting Rhythm (DC) Atrial Fibrillation or Flutter --- AF/COMMUNITY ASSOCIATE 82 bpm. Arrhythmic events (AE) Permanent atrial fibrillation --- Since 06/16/24: No VHR episodes. Per histograms, V rates are well controlled. Anticoagulation (AC) Patient on anticoagulant therapy Patient prescribed Apixaban (Eliquis) Miscellaneous Observations (MISC) RV pacing > 40% noted --- COMMUNITY ASSOCIATE 76.3%. Transmission Information (TI) Device Summary Report Follow Up (FU) Patient's primary treating physician will be apprised of findings Procedure Note Patrick Brito MD PhD - 09/25/2024 Interpretation Summary: Battery and Leads (BL) Normal parameters noted on battery and lead(s) --- 12.7 yrs remaininglongevity. Lead impedance, RA sensing, and RV threshold trends stableand appropriate. No short V-V intervals. R wave out of range --- R wave 4.0 mV. Trend is stable. RV sensitivityis programmed 0.9 mV. Presenting Rhythm (DC) Atrial Fibrillation or Flutter --- AF/COMMUNITY ASSOCIATE 82 bpm. Arrhythmic events (AE) Permanent atrial fibrillation --- Since 06/16/24: No VHR episodes. Perhistograms, V rates are well controlled. Anticoagulation (AC) Patient on anticoagulant therapy Patient prescribed Apixaban (Eliquis) Miscellaneous Observations (MISC) RV pacing > 40% noted --- COMMUNITY ASSOCIATE 76.3%. Transmission Information (TI) Device Summary Report Follow Up (FU) Patient's primary treating physician will be apprised of findings Patrick Brito MD PhD CV CARDIAC SERVICES DC OCEDURES Final Result * Pulmonary Function Test - (08/03/2024 1:46 PM CYCLE ANALYST) FVC PRE 3.52 L [facility] FVC %PRE PRED 99 % [facility] FEV1 PRE 2.11 L [facility] FEV1 %PRE PRED 81 % [facility] FEV1/FVC PRE 59.9 % [facility] Anatomical Region Laterality Modality PFT 08/03/2024 1:30 PM CYCLE ANALYST Narrative 08/04/2024 2:51 PM CYCLE ANALYST Table formatting from the original result was not included. [facility] Division of Pulmonary & Critical Care Medicine [address] [place] [address]; [address] [facility]; [place] [address]; [phone] Pulmonary Function Laboratory Pulmonary Stress Test Simple/Oxygen Assessment Patient: Eriberto Mancini Date: 08/03/2024 : 1940 Ht: 68 IN Wt: 147 LBS Time (min) Distance (ft)/ Sanchez O2 L/M SpO2 HR Siva* BP FEV1 % Pred Rest: RA 99 76 0 117/87 2.11 81 % Walk/Bike: 1 RA 95 93 0 2 RA 95 96 0 3 RA 97 94 0 4 RA 100 96 0.5 5 RA 98 97 0.5 6 min 0 sec RA 97 96 0.5 Recovery: 1 RA 100 90 0 135/79 2.01 77% 3 RA 99 81 0 *Siva rate of perceived exertion (1-10 dyspnea scale) Julián, CHEST 2003; [id number] Walk Test Summary: Six Minute Walk Distance: 1130 ft Six-minute Walk Work [distance (m) x body wt (kg)]: 63812 kg.m (normal >60,000kg.m) Oxygen required to maintain SpO2 greater than 90% during six minutes of walkin L/M Comments: O2A- 0 STOPS Interpretation: Breathing room air, SpO2 is normal at rest and during exercise sufficient to increase pulse, SpO2 is stable. On this basis, SpO2 is adequate at rest breathing room air and while walking breathing room air. This level of exercise is associated with no significant change of FEV1. By signing this report, the attending pulmonary physician certifies that he/she has personally reviewed and interpreted the graphic and numerical data associated with this pulmonary function study and has reviewed and /or edited a preliminary draft report and agrees with the written final report. PFT performed at:->[facility] Adult PFT Lab- [id number] Procedure:->Spirometry Procedure:->Oxygen Assessment Titration Pulmonary Function Test Interpretation SPIROMETRY: There is scooping of the expiratory limb of the flow-volume curve, consistent with expiratory airflow obstruction. There is a decrease in expiratory airflow at middle lung volumes. The FEV1 to FVC ratio is reduced. The inspiratory loop is suggestive of submaximal effort. Impression: There is a minimal obstructive defect. Compared with most recent study, there has been significant interval worsening of the FVC. The attending pulmonary physician certifies a physician presence in the [facility] during the administration of aerosolized bronchodilator. The attending pulmonary physician certifies that he/she has reviewed and interpreted the graphic and numerical data of this pulmonary function study and agrees with the written final report. The lower limit of normal for PaO2 and %HbO2 is age dependent. However, the [facility] Pulmonary Function Laboratory defines hypoxemia as a PaO2 <56 mm Hg or a %HbO2 <89%. Starting on June of 2024 the [facility] Pulmonary Function Laboratory utilizes race neutral GLI Global normative equations. Brandon Estevez MD PFT ORDERABLES Yari matthews Result from Last 3 Months Insurance [employer] MEDICARE AET MEDICARE T MEDICARE Care Teams Document Reviewer Relationship Specialty Start Date End Date Raza Serra MD PCP - General Family Practice 11/04/23
--- OUTSIDE RECORDS SUMMARY | 2024-10-18 00:12 | XMS_ITS | Clinical Summary ---
Author Organization [facility] Address [address] [place] [address] Care Team Providers Care Sheet Fed Printer Name Role Phone Raza Serra MD Primary Care Provider [phone] Allergies Active Allergy Reactions Criticality Noted Date [...] mg total) by mouth every morning Active rxqex-xygjk-2-d xi-dim-qawfba [id number] mg capsuleIndicati ons:supplement Take 1 capsule by mouth every morning Active cholecalciferol (VITAMIN D-3) 5,000 unit tabletIndicatio ns:supplement Take 1 tablet (5,000 Units total) by mouth every morning Active cyanocobalamin/ folic acid (vitamin O49-xregi acid) 500-400 mcg tabletIndicatio ns:Vitamin Deficiency Prevention [...] for 4 days 6 tablet 5 10/17/19 25 Active Problems Problem Noted Date Diagnosed Date Hospital discharge follow-up 02/05/2023 Chronic diastolic CHF (congestive heart failure) 02/05/2023 Pacemaker 02/05/2023 SSS (sick sinus syndrome) 02/05/2021 Fitting and adjustment of cardiac pacemaker 01/09 Occupational exposure to dust 10/20/2019 History of cardiac radiofrequency ablation (RFA) 10/23/[address] 10/23/2018 GERD (gastroesophageal reflux disease) 05/17/201 9 Chronic bronchitis 10/23/2018 Hiatal hernia 10/23/2018 [...] fibrillation 04/19/2014 Overview (09/13/2016): 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 0 02/04/2013 Chronic obstructive pulmonary disease Encounters Date Type Department Care Team Description 10/15/2024 Results Follow-Up [facility] Cardiology [address] [place] [address] [place] [phone] Libia Burroughs MD 10/12/2024 10:15 AM CDT Ancillary Procedure [facility] Cardiology [address] [place] [address] Chronic diastolic (congestive) heart failure (HCC) 10/11/2024 Telephone [facility] Pulmonary [address] [facility] Advanced Medicine 8th [place] [address] [place] [address] Jaron Rider RN 10/11/2024 Telephone [facility] Cardiology [address] [place] [address] [place] [phone] Libia Burroughs MD 09/13/2024 Orders Only [facility] Cardiology [address] [place] [address] Medical Office Building [address] [place] [address] Patrick Brito MD PhD 08/20/2024 10:30 AM CDT Office Visit [facility] Cardiology [address] [place] [address] [place] [phone] Libia Burroughs MD Chronic diastolic (congestive) heart failure (HCC) (Primary Dx); SSS (sick sinus syndrome) (HCC); Pacemaker; Longstanding persistent atrial fibrillation (HCC); Chronic anticoagulation 08/03/2024 2:30 PM TITLE SPECIALIST Office Visit [facility] Pulmonary [address] [facility] 8th [place] [address] [place] [address] Brandon Estevez MD Physical deconditioning (Primary Dx); Chronic obstructive pulmonary disease with acute exacerbation (HCC); Evidence of airways hyperreactivity without diagnosis of asthma; Dyspnea on exertion 08/03/2024 1:28 PM TITLE SPECIALIST - 08/03/2024 11:59 PM TITLE SPECIALIST Hospital Encounter [facility] Pulmonary [address] [facility] [address] [place] [address] Chronic obstructive pulmonary disease with acute exacerbation (HCC) Discharge Disposition: Discharge to home or self care 08/03/2024 Orders Only [facility] Pulmonary [facility] 8th [place] [address] [place] [address] Jaron Rider RN Chronic obstructive pulmonary disease with acute exacerbation (HCC) (Primary Dx) from Last 3 Months Immunizations Immunization Administration Dates Next Due Pfizer [...] Arrhythmias sup raventricular s/p RFA Other emphysema (HCC) 10/20/2018 Dyspnea on exertion 10/20/2018 Physical deconditioning 10/20/2018 Impaired gas exchange 10/20/2018 Former cigarette smoker 10/20/2018 S/P dilatation of esophageal stricture 10/23/[address] 10/23/2018 GERD (gastroesophageal reflu x disease) 10/23/2018 Chronic bronchitis (HCC) 10/23/2018 Hiatal hernia 10/23/2018 Occupational exposure to [...] on file Legal Sex Male 2:40 PM TITLE SPECIALIST Gender Identity Male 01/29/2021 1:05 PM CDT Sexual Orientation Straight 01/29/2021 1: 05 PM CDT Obstetrics History Last Filed Vital Signs Vital Sign Reading Time Taken Comments Blood Pressure 134/69 08/20/2024 10:49 AM CDT Pulse 61 08/20/2024 10:49 AM CDT Temperature 36.3 C (97.3 F) 08/03/2024 2:24 PM TITLE SPECIALIST Respiratory Rate 18 08/03/2024 2:24 PM TITLE SPECIALIST Oxygen Saturation 97% 08/20/2024 10:49 AM CDT Inhaled Oxygen Concentration - - Weight 66.7 kg (147 lb) 08/20/2024 10:49 AM CDT Height 172.7 cm (5' 8 ) 08/20/2024 10:49 AM CDT Body Mass Index 22.35 08/20/2024 10:49 AM CDT Plan of Treatment Health Maintenance Due Date Last Done Comments Depression Screening 1940 Hepatitis B Screening 1958 Well Visit 65+ 2005 Pneumococcal vaccine 65+ (2 of 2 - PPSV23) 03/28/2016 02/01/2016 Covid-19 Vaccine (4 - 2023-2 5 season) 2024 03/09/2021, 08/12/2020, 07/14/2020 Fall Risk Assessment 03/18/2024 03/18/2023, 03/04/2023, 07/30/2021, Additional history exists Influenza Vaccine (Season Ended) 2025 02/25/2020, 03/25/2019, 03/12/2018 DTaP/Tdap/Td Vaccine (2 - Td or Tdap) 01/24/2026 01/25/2016 Zoster Vaccine Completed 02/26/2018, 12/08, 03/06/2007 Medical Devices Implanted Type Area Hard Metals Hand Engraver Device Identifier Shelf Expiration Date Model / Serial / Lot Pacemaker-2013 Implanted:07/2013 (Quantity not on file) Pacemaker Chest Medtronic Med[employer] [place] S Mri Surescan 50.8x46.6mm 2 Chamber 7.4mm Pacemaker 22.5gm [id number] - [id number] - [id number] Implanted:Qty: 1 on 03/04/2023 by Patrick Brito MD PhD at [facility] Pacemaker Left: Chest Wall Med[employer]onic Inc 07/06/2024 [id number] / [id number] / Procedures Procedure Name Priority Date/Time Associated Diagnosis Comments TRANSTHORACIC ECHO (TTE) COMPLETE W DOPPLER/CF WO CONTRAST Routine 10/12/2024 10:47 AM CDT Chronic diastolic (congestive) heart failure (HCC) DEVICE CHECK - REMOTE Routine 09/13/2024 1:48 AM CDT PULMONARY FUNCTION TEST (PFT) Routine 08/03/2024 1:46 PM TITLE SPECIALIST Chronic obstructive pulmonary disease with acute exacerbation (HCC) from Last 3 Months Results * TRANSTHORACIC ECHO (TTE) COMPLETE W DOPPLER/CF WO CONTRAST (10/12/2024 10:47 AM CDT) Estimated EF 55-60 % CONS SCIMAGE EF Mod BP 56 % CONS SCIMAGE Anatomical Region Laterality Modality Ultrasound 10/12/2024 10:2 6 AM CDT Narrative 10/13/2024 8:10 AM CDT [facility] Cardiology [address] [facility] [address], [place] [address] [address] [facility] [address], [place] [address] P:[phone] P:[phone] Echocardiographic Report Patient Name: MARKY MANCINI L : 1940 Study Date: 10/12/2024 10:26:12 AM Gender: M Tech: Location: [facility] Provider: LIBIA BURROUGHS Height(Cm): 173 BSA: 1.79 Weight(Kg): 66.7 Heart Rate: 91 BP: 134 / 69 Quality: Good Order Provider: LIBIA BURROUGHS PROCEDURES: Echocardiographic Report: Transthoracic echocardiogram with [...] FINDINGS: Interpretation Site: Exam was interpreted at [facility]. Left Ventricle: Normal left ventricular systolic function. [...] Procedure Note Artie Moss MD - 10/13/2024 [facility] Cardiology [address] [facility] [address], [place] [address] [address] [facility] [address], [place] [address] P:[phone] P:[phone] Echocardiographic Report Patient Name: MARYK MANCINI L : 1940 Study Date: 10/12/2024 10:26:12 AM Gender: M Tech: Location: [place] Ref Provider: LIBIA BURROUGHS Height(Cm): 173 BSA: 1.79 Weight(Kg): 66.7 Heart Rate: 91 BP: 134 / 69 Quality: Good Order Provider: LIBIA BURROUGHS PROCEDURES: Echocardiographic Report: Transthoracic echocardiogram with [...] FINDINGS: Interpretation Site: Exam was interpreted at [facility]. Left Ventricle: Normal left ventricular systolic function. [...] Artie Moss MD 10/13/2024 8:09:46 AM CDT us Libia Burroughs MD CV ECHO PROCEDURES Final Result [...] sensitivity is programmed 0.9 mV. Presenting Rhythm (CT) Atrial Fibrillation or Flutter --- AF/CONTINUOUS PICKLING LINE PICKLER 82 bpm. Arrhythmic events (AE) Permanent atrial fibrillation --- Since 06/16/24: No VHR episodes. Per histograms, V rates are well controlled. Anticoagulation (AC) Patient on anticoagulant therapy Patient prescribed Apixaban (Eliquis) Miscellaneous Observations (MISC) RV pacing > 40% noted --- CONTINUOUS PICKLING LINE PICKLER 76.3%. Transmission Information (TI) Device Summary Report [...] RV sensitivityis programmed 0.9 mV. Presenting Rhythm (CT) Atrial Fibrillation or Flutter --- AF/CONTINUOUS PICKLING LINE PICKLER 82 bpm. Arrhythmic events (AE) Permanent atrial fibrillation --- Since 06/16/24: No VHR episodes. Perhistograms, V rates are well controlled. Anticoagulation (AC) Patient on anticoagulant therapy Patient prescribed Apixaban (Eliquis) Miscellaneous Observations (MISC) RV pacing > 40% noted --- CONTINUOUS PICKLING LINE PICKLER 76.3%. Transmission Information (TI) Device Summary Report Follow Up (FU) Patient's primary treating physician will be apprised of findings Patrick Brito MD PhD CV CARDIAC SERVICES CT OCEDURES Final Result * Pulmonary Function Test - (08/03/2024 1:46 PM TITLE SPECIALIST) FVC PRE 3.52 L [facility] FVC %PRE PRED 99 % [facility] FEV1 PRE 2.11 L [facility] FEV1 %PRE PRED 81 % [facility] FEV1/FVC PRE 59.9 % [facility] Anatomical Region Laterality Modality PFT 08/03/2024 1:30 PM TITLE SPECIALIST Narrative 08/04/2024 2:51 PM TITLE SPECIALIST Table formatting from the original result was not included. [facility] Division of Pulmonary & Critical Care Medicine [address] [place] [address]; [place] [address]; [place] [address]; [phone] Pulmonary Function Laboratory Pulmonary Stress Test Simple/Oxygen Assessment Patient: Marky Mancini Date: 08/03/2024 : 1940 Ht: 68 [...] Work [distance (m) x body wt (kg)]: 47586 kg.m (normal >60,000kg.m) Oxygen required to maintain [...] with the written final report. PFT performed at:->[facility] Adult PFT Lab- CAM-8D Procedure:->Spirometry Procedure:->Oxygen [...] and %HbO2 is age dependent. However, the [facility] Pulmonary Function Laboratory defines hypoxemia as a PaO2 <56 mm Hg or a %HbO2 <89%. Starting on June of 2024 the [facility] Pulmonary Function Laboratory utilizes race neutral GLI Global normative equations. Brandon Estevez MD PFT ORDERABLES Yari l Result from Last 3 Months Insurance [facility] MEDICARE [facility] MEDICARE T MEDICARE Care Teams Sheet Fed Printer Relationship Specialty Start Date End Date Raza Serra MD PCP - General Family Practice 11/04/23
--- OUTSIDE RECORDS SUMMARY | 2024-10-18 00:12 | XMS_ITS ---
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 Past Treatment and Therapy Plans No past plan information found. Lifetime Dose Tracking * Chemical Lifetime Dose Automatic Entry Manual Entr y DLP 1,359 mGycm 1,359 mGycm 0 mGycm
--- OUTSIDE RECORDS SUMMARY | 2024-10-18 00:12 | XMS_ITS | Encounter Summary ---
Author Organization [facility] Address [address] [place] [address] Care Team Providers Care Gas Appliance Adjuster Name Role Phone Raza Serra MD Primary Care Provider [phone] Encounter Details Date Type Department Care Team (Late st Contact Info) Description 10/15/2024 Results Follow-Up [facility] Cardiology [address] [place] [phone] Ivan Rosas MD [address] [place] [address] [address] [place] [address] Social History Tobacco Use Types Packs/Day Years Used Date Smoking Tobacco: Former Cigarettes Smokeless Tobacco: Never Alcohol Use Standard Drinks/Week [...] on file 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
--- OUTSIDE RECORDS SUMMARY | 2024-10-18 00:13 | XMS_ITS | Continuity of Care Document ---
Author Organization [facility] Address [address] [facility] [address] [place] [address] Phone Care Team Providers Care Vehicle Body Sander Name Role Phone Jaron Shaw Unavailable Unavailable Procedures Procedure Date Office/outpatient Visit, Est Office/outpatient Visit, Est Office/outpatient Visit, Est No Script Office/outpatient Visit, Est Advance Directives Directive Yes / No Effective Date File Name No Information Encounters Encounter Description Practice Location Reason(s) For Visit Diagnoses Date Provider Providers Copied on Encounter Office/outpat ient Visit, [facility] [address] [place] [address] [address], [place], [place], [id number], [place] tel:[phone] [facility] No Information 0 Colin Salmeron. [facility] , [address], [place], [place], [facility], [place]. tel:[phone] Office/outpat ient Visit, [facility], [address] [place] [address] [address], [place], [place], [id number], [place] tel:[phone] [facility] No Information 0 [phone] 0 Janene Diaz. [address] [facility] [address], [place], [place], [facility], [place]. tel:[phone] Office/outpat ient Visit, [facility], [address] [place] [address] [address], [place], [place], [id number], [place] tel:[phone] [facility] No Information [address] Doisy Edward. [address] , [address], [place], [address], [place]. tel:[phone] Office/outpat ient Visit, [facility], [address], [place], [place], [address], [place] tel:[phone] [facility] No Information 9-200 6 Doisy Edward. [address] [facility] , [address], [place], [address], [place]. tel:[phone] Family History Family Member Type Diagnosis Age At Onset No Information Payers Payer name Insurance type Covered republican ID Authoriza tion(s) [place] [id number] Social History Type Description Quantity Date Captured [...]
--- OUTSIDE RECORDS SUMMARY | 2024-10-18 00:13 | XMS_ITS | Clinical Summary ---
Author Organization [facility] Address [address] [place] [address] Care Team Providers Care Home Service Advisor Name Role Phone Eduardo Marin DO Primary Care Provider [phone] Source Comments [facility],non-owned Affiliates and Associated Physician Practices is amultiple site organization consisting of ambulatory clinics and hospital sitesin [place] and [place]. This disclosure is being madepursuant to the Care Everywhere program and may not contain all information available regarding this patient. Last updated 18.[facility] Allergies Active Allergy Reactions Criticality Noted Date Comments Diclofenac Epolamine Diarrhea,Other,Palp it ations High 01/03/2010 Other reaction(s): Nausea only Reaction: DIARRHEA, Reaction: Nausea, Loose Stools, Other reaction(s): Nausea only Reaction: DIARRHEA, Reaction: Nausea, Loose Stools, Medications * Be aware that medications may not be up to date on this document. Alwaysverify current medications with the patient. albuterol HFA (PROAIR HFA) 108 (90 Base) MCG/ACT inhaler Inhale 90 mcg by mouth as needed 2 Active apixaban (ELIQUIS) 5 MG tablet Take 1 (one) tablet by mouth 2 times daily 9 Active vitamin C (ASCORBIC ACID) 1000 MG tablet Take 0.5 (one-half) tablet by mouth 2 times daily Active tadalafil (CIALIS) 20 MG tablet Take 1 (one) tablet by mouth as needed 9 Active cetirizine (ZYRTEC) 10 MG tablet Take 1 (one) tablet by mouth once daily 90 tablet 4 9 Active omeprazole (PRILOSEC) 20 MG capsule Take 2 (two) capsules by mouth once daily 0 Active Coenzyme Q10 (COQ10) 100 MG Take 100 (one hundred) mg by mouth once daily Active Krill Oil 350 MG CAPS Take 1 capsule by mouth once daily Active Cholecalciferol 125 MCG (5000 UT) Take 1 (one) tablet by mouth once daily Active Cobalamin Combinations (VITAMIN D25-RPHZU ACID) 500-400 MCG Take 1 tablet by mouth once daily Active testosterone (ANDROGEL) 20.25 MG/1.25GM (1.62%) gel testosterone 1.62 % (20.25 mg/1.25 gram) transdermal gel packet APPLY 1 PACKET TOPICALLY ONCE DAILY 1 Active empagliflozin (Jardiance) 10 MG tablet Take 1 (one) tablet by mouth once daily 3 Active traZODone (Desyrel) 50 MG tablet Take 1 (one) tablet by mouth 3 Active Anoro Ellipta 62.5-25 MCG/ACT inhaler Inhale [...] Presence of other cardiac implants and grafts 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 current use of anticoagulant therapy 0 02/04/2013 Arthritis Chronic back pain COPD (chronic obstructive pulmonary disease) GERD (gastroesophageal reflux disease) Squamous cell cancer of skin of hand Immunizations Immunization Administration Dates Next Due Covid Pfizer primary [...] at Not on file 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 Gender Identity Not on file Sexual Orientation Not on file Last Filed Vital Signs Vital Sign Reading Time Taken Comments Blood Pressure 119/72 12/01/2023 9:30 AM CDT Pulse 76 12/01/2023 9:30 AM CDT Temperature 37 C (98.6 F) 09/30/2022 10:17 AM CDT Respiratory Rate 18 [...] - 1-dose 75+ series) 12/17/2015 COVID-19 VACCINE (4 - 2024-2 5 season) 2024 03/09/2021, 08/12/2020, 07/14/2020 DEPRESSION SCREENING 06/09/2024 09/30/2022 MEDICARE AWV CALENDAR YEAR 2024 INFLUENZA VACCINE (Season Ended) 2025 02/25/2020, 03/25/2019 HEPATITIS B VACCINE Aged Out No longe r eligible based on patient's age to complete this topic HIB VACCINE Aged Out No longer eligi ble based on patient's age to complete this topic HPV VACCINE Aged Out No longer eligi ble based on patient's age to complete this topic MENINGOCOCCAL (Group B) VACCINE SHARED DECISION-MAKING Aged Out No longer eligible based on patient's age to complete this topic MENINGOCOCCAL GROUPS A/C/Y/W VACCINE Aged Out No longer eligible b ased on patient's age to complete this topic Insurance AET[employer] MEDICARE [facility] Care Address: [facility] [id number] [place] [address] AET Care Teams Home Service Advisor Relationship Specialty Start Date End Date Eduardo Marin DO [address] [place] [address] PCP - General Internal Medicine 05/14/21
--- OUTSIDE RECORDS SUMMARY | 2024-10-18 00:13 | XMS_ITS | Encounter Summary ---
Author Organization [facility] Address [address] [facility] [place] [address] Care Team Providers Care Geospatial Technologist Name Role Phone Eduardo Marin DO Primary Care Provider [phone] Encounter Details Date Type Department Care Team (Late st Contact Info) Description 09/10/2023 Lab Requisition [facility] - DermPath Lab [address] [facility], [place] [id number] Marc Miller MD [address] [place] [address] Social History Tobacco Use Types Packs/Day Years Used Date Smoking Tobacco: Former Smokeless Tobacco: Never Alcohol Use Standard Drinks/Week Comments Yes 1 (1 standard drink = 0.6 oz pur e alcohol) PHQ-2 Answer Date Recorded PHQ2 TOTAL SCORE 0 09/30/2022 Sex and Gender Information Value Date Recorded Sex Assigned at Not on file 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 Gender Identity Not on file Sexual Orientation Not on file documented as of this encounter Plan of Treatment Not on file documented as of this encounter Procedures Procedure Name Priority Date/Time Associated Diagnosis Comments DERMATOPATHOLOGY Routine 09/09/2023 12:0 0 AM CDT documented in this encounter Results * DERMATOPATHOLOGY (09/09/2023 12:00 AM CDT) Case Report Dermatopathology Report Case: [id number] Authorizing Provider: Marc Miller MD Collected: 09/09/2023 12:00 AM Ordering Location: [facility] - Received: 09/11/2023 06:28 AM DermPath Lab Pathologist: Moriah Staples MD Specimen: Skin, midline upper back 7:58 AM CDT DERMATOPATHOLOGY LABORATORY Final Diagnosis Specimen A. SKIN, midline upper back: LENTIGINOUS MELANOCYTIC NEVUS, COMPOUND TYPE, IRRITATED AND INFLAMED (D22.5) 7:58 AM T DERMATOPATHOLOGY LABORATORY Clinical History R/O Dysplastic Nevus vs Nevus vd SK. 7:58 AM CDT DERMATOPATHOLOGY LABORATORY Gross Description Specimen A: Received is one formalin filled container labeled with the patient's name and designated midline upper back. The specimen consists of a shave biopsy measuring 9x9x1 mm. Jar 0. 7:58 AM T DERMATOPATHOLOGY LABORATORY Microscopic Description Specimen A. SKIN, [...] characteristic determined by the Dermatopathology Laboratory at [facility], directed by Dr. Vikas Vickers. These tests need not be, and therefore are not, approved by the [place] Food and Drug Administration. The tests are used for clinical purposes. Billing Codes Specimen Charges Stain Charges 47296 1 94887 00935 1 1 04/08/202 4 7:58 AM CDT DERMATOPATHOLOGY LABORATORY Embedded Images 4 7:58 AM CDT DERMATOPATHOLOGY LABORATORY Pathology/Cytolog y TISSUE SPECIMEN FROM SKIN / Unknown 09/09/2023 09/11/2023 6:28 AM CDT Marc Miller MD LAB - PATHOLOGY/CYTOLOGY ORD ERABLES Final Result DERMATOPATHOLOGY LABORATORY [facility] - Department of Dermatology [facility] Special[facility] Medicine [address] [place] [address], [address] [phone] documented in this encounter Visit Diagnoses Not on filedocumented in this encounter Care Teams Geospatial Technologist Relationship Specialty Start Date End Date Eduardo Marin DO [address] [place] [address] PCP - General Internal Medicine 05/14/21 documented as of this encounter
--- OUTSIDE RECORDS SUMMARY | 2024-10-18 00:13 | XMS_ITS ---
Author Organization [facility] Address [address] [place], [place] [address] Care Team Providers Care Pharmacy Ancillary Name Role Phone RASHAWN WILDER Unavailable [phone] Raza Serra Unavailable Unavailable REASON FOR VISIT The patient and his have noticed that the toe is no longer red and swollen, but it is unchanged in its tenderness Medications Medication SIG (Take, Route, Frequency, Duration) Notes Start Date End Date Status Cialis 20 MG 1 tablet as needed O rally Once a day Active Eliquis 5 MG as directed Orally Active Testosterone 20.25 MG/1.25GM (1.62%) 1 packet to skin in the morning to shoulder and upper arms Transdermal Once a day Active traZODone HCl 50 MG 1 tablet at bedtime as needed Orally Once a day Active Jardiance 10 MG 1 tablet Orally Once a day Active Encounters Encounter Location Date Provider Diagnosis [facility] [place] [address] [place], [place] [id number] 07/26/2024 RASHAWN WILDER Pain in left foot M79.672 and Nondisplaced fracture of proximal phalanx of left lesser toe(s), subsequent encounter for fracture with routine healing S92.515D Assessments Encounter Date Diagnosis (ICD Code) Assessment Notes Treatment Notes Treatment Clinical Notes Section Notes 07/26/2024 Pain in left foot (ICD-10 - M79.672) 07/26/2024 Nondisplaced fracture of proximal phalanx of left lesser toe(s), subsequent encounter for fracture with routine healing (ICD-10 - S92.515D) Fracture Care: I discussed the nature and etiology of the injury to the patient and answered all questions. I discussed rest, immobilization, and time frame for healing. I explained that lack of compliance can lead to delayed healing or nonunion. Continue Surgical Shoe: Advised the patient to continue to wear the surgical shoe as directed and to limit activity. Plan Of Treatment Treatment Notes Assessment Notes Nondisplaced fracture of pro ximal phalanx of left lesser toe(s), subsequent encounter for fracture with routine healing Fracture Care: I discussed the nature and etiology of the injury to the patient and answered all questions. I discussed rest, immobilization, and time frame for healing. I explained that lack of compliance can lead to delayed healing or nonunion. Continue Surgical Shoe: Advised the patient to continue to wear the surgical shoe as directed and to limit activity. Next Appt Details Follow Up: 2 Weeks, Reason: Repeat xrays 3 views of the left foot. Anticipate resolution Provider Name:RASHAWN WILDER, 02:10:00 PM, [address], [address], [phone], Progress Notes * Marky MANCINIDOB:1940 ( 83 yo M)Acc No.[id number]:07/26/2024 Patient: Marky CANALES Provider: Param Wilder DPM :1940 A ge:83 Y S ex:Male Date:07/26/2024 Address:[address] [place] [address] [id number] Subjective: * Chief Complaints: * T he patient and his have noticed that the toe is no longer red and swollen, but it is unchanged in its tenderness * HPI: H PI: Follow Up Visit P atient presents for follow-up visit for fracture check of the left second digit. Patient states he is unsure if there has been any change. Patient states toe is still the same size as before. MA LB. * ROS: G eneral / Constitutional: Patient denies c hills, fever, weight loss. ? M usculoskeletal: Patient complains of h ammertoes, broken foot bone. ? P eripheral Vascular: Patient denies p ain / cramping in legs after exertion, ulceration of feet. S kin: Patient complains of n ail changes, calluses and corns.? N eurologic: Patient denies b alance difficulty, confusion, difficulty speaking, dizziness. * Medical History: * Surgical History: * Hospitalization/Major Diagno stic Procedure: * Social History: H istory of Tobacco. * Medications: T akingTestosterone 20.25 MG/1.25GM (1.62%) Gel 1 packet to skin in the morning to shoulder and upper arms Transdermal Once a day Cialis 20 MG Tablet 1 tablet as needed Orally Once a day Eliquis 5 MG Tablet as directed Orally traZODone HCl 50 MG Tablet 1 tablet at bedtime as needed Orally Once a day Jardiance 10 MG Tablet 1 tablet Orally Once a day Medication List reviewed and reconciled with the patientTaking Testosterone 20.25 MG/1.25GM (1.62%) Gel 1 packet to skin in the morning to shoulder and upper arms Transdermal Once a day Taking Cialis 20 MG Tablet 1 tablet as needed Orally Once a day Taking Eliquis 5 MG Tablet as directed Orally Taking traZODone HCl 50 MG Tablet 1 tablet at bedtime as needed Orally Once a day Taking Jardiance 10 MG Tablet 1 tablet Orally Once a day Medication List reviewed and reconciled with the patient Objective: * Vitals: * Examination: P hysical Examination: General appearance: A lert, pleasant, well-nourished and in no acute distress. D ermatologic: Skin findings: S kin is thin, atrophic and lacking pedal hair. Hypertrophic / hyperkeratotic lesion: d istal aspect of the right and left 2nd digit. Nail pathology: N ails 1, 2, 3, 4, and 5 bilateral are elongated, thick, discolored, and dystrophic with subungual debris. They are painful to palpation. ? V ascular: Dorsalis pedis pulse: 1 /4 b ilateral. Posterior tibial pulse: 0 /4 bilateral. Capillary refill: g reater than 3 seconds. Edema: N o edema bilateral. N eurologic: Gross sensation G rossly intact to light touch. There is negative Tinel's sign. M usculoskeletal: Muscle Strength M uscle strength is 5/5 in regards to dorsiflexion, plantarflexion, inversion, and eversion in bilateral lower extremities. Pain on palpation p ain on palpation to the left 2nd digit and with ROM of the 2nd digit. R adiographs: Right Foot T here is a transverse fracture of the proximal phalanx at the neck of the phalanx that is filling in. It is in good alignment and is extra-articular. Assessment: * Assessment: 1. N ondisplaced fracture of proximal phalanx of left lesser toe(s), subsequent encounter for fracture with routine healing - S92.515D (Primary) 2 . P ain in left foot - M79.672 Plan: * Treatment: * Procedure Codes: 7 3630 X-RAY EXAM OF FOOT, Modifiers: LT * Follow Up: 2 Weeks (Reason: Repeat xrays 3 views of the left foot. Anticipate resolution) * Billing Information: * Visit Code: 23662 Office Visit, Est Pt., Level 3. * Procedure Codes: 30374 X-RAY EXAM OF FOOT. Modifiers: LT * TECH Sign off status: Completed true * Provider: Param Wilder DPM Date: 0 07/26/2024 Generated for Glory gudino/Guerline/Yasmin on: 0 10/18/2024 12:12 AM CDT History and Physical Notes * HPI (History of Present Illness) Category Sub-Category Detail Notes Category Not es HPI Follow Up Visit Patient presents for follow-up visit for fracture check of the left second digit. Patient states he is unsure if there has been any change. Patient states toe is still the same size as before. MA LB Examination Category Sub-Category Detail Notes Category Not es Dermatologic Skin findings: Skin is thin, at rophic and lacking pedal hair Nail pathology: Nails 1, 2, 3, 4, an d 5 bilateral are elongated, thick, discolored, and dystrophic with subungual debris. They are painful to palpation Hypertrophic / hyperkeratotic lesion: di stal aspect of the right and left 2nd digit Neurologic Gross sensation Grossly intact t o light touch. There is negative Tinel's sign Vascular Dorsalis pedis pulse: 1/4 bilateral Edema: No edema bilateral Capillary refill: greater than 3 secon ds Posterior tibial pulse: 0/4 bilateral Physical Examination General appearance: Alert, pleasant, well-nourished and in no acute distress Musculoskeletal Muscle Strength Muscle strength is 5/5 in regards to dorsiflexion, plantarflexion, inversion, and eversion in bilateral lower extremities Pain on palpation pain on palpation to the left 2nd digit and with ROM of the 2nd digit Radiographs Right Foot There is a trans verse fracture of the proximal phalanx at the neck of the phalanx that is filling in. It is in good alignment and is extra-articular
--- OUTSIDE RECORDS SUMMARY | 2024-10-18 00:13 | XMS_ITS | Data Portability ---
Author Organization [facility] Main Office Address [address] [place] [address] Care Team Providers Care Office Mover Name Role Phone POONAM KAUR Primary Care Provider [phone] POONAM KAUR Referring Provider Assessment Encounter Date Assessment Date Assessment LastModified [...] Procedures knee aspiration /injection (PROC) 2022 023 [email or web address] Not available 10:08:41 Surgeries None recorded. Imaging [...] 3 view No observ ation record ed. [id number] [facility] [place] [address], [place], [address], 08/07/2022 10:46:23 07/22/19 23 XR, knee No observ ation record ed. [id number] [facility] [place] [address], [place], [address], 08/07/2022 10:46:23 Result Notes None recorded. Problems Name Problem SNOMED Code Status Onset Date Resolution Date Notes Provider Name and Address Organization Details Recorded Time Pain of joint of wrist Active Not Available [facility] 10:42:45 Partial thickness rotator cuff tear Active Not Available [facility] 10:42:45 Pain of bilateral knee regions 9849603805643 02 Active 2022 Not Available [facility] 3 10:42:45 Bilateral osteoarthr itis of knees 9268049254982 07 Active 2022 ALBERTO Benson, [place] [facility] [place] [employer] [facility] 3 11:48:15 Problem Notes None recorded. Procedures Surgical History Date Name Laterality Status Provider Name and Address Organization Details Recorded Time Rotator cuff surgery completed Not Available [facility] 08/07/2022 10:41:01 Arthroscopy completed Not Available [facility] 08/07/2022 10:41:01 cardioversion completed Not Available [facility] 08/07/2022 10:41:01 Tonsillectomy completed Not Available [facility] 08/07/2022 10:41:01 plantar fasciectomy completed Not Available [facility] 08/07/2022 10:41:01 mohs surgery completed Not Available [facility] 08/07/2022 10:41:01 Hernia Repair completed Not [facility] 08/07/2022 10:41:01 Pacemaker completed Not Available [facility] 0 08/07/2022 10:41:01 Cholecystectomy completed Not Available [facility] 08/07/2022 10:41:01 Appendectomy completed Not Available [facility] 08/07/2022 10:41:01 atrial operation completed Not Available [facility] 08/07/2022 10:41:01 Colon Resection completed Not Available [facility] 08/07/2022 10:41:01 Imaging Results Imaging Date Name Status LastModified by Organiz ation Details LastModified Time 07/22/2022 XR, knee completed [id number] [facility] [place] [address], [place], [address], 08/07/2022 10:46:23 02/02/2021 XR, knee, 3 view completed [id number] [facility] [place] [address], [place], [address], 08/07/2022 10:46:23 Procedure Notes None recorded. Medical Equipment None Reported. Allergies Allergen ID Allergen Name Allergen Category Reaction Reaction Severity Criticality Documentation Date Start Date Code Code System Note Provider Name and Address Organization Details Recorded Time 51806 Veltin medicatio n Not available Not available Not available 08/07/2022 45420 4 RxNorm Not Available [facility] 10:46:00 Medications Name Sig Start Date Stop [...] administe red by the provider 07/22 completed [facility]: 0409- 4276- 17 Not Available Not Available [...] Updated DateTime 07/22/2022 25.8 kg/m2 170.18 cm 44634.74 g Not Available [facility] 08/07/2022 10:41:30 Date Recorded Body height Provider Name an d Address Organization Details Last Updated DateTime 08/09/2022 170.18 cm ALBERTO Benson [place] [facility] 08/09/2022 11:47:48 Social History Question Answer Notes LastModified by Organizat [employer] Details LastModified Time Tobacco Smoking Status Former Smoker Not Available [facility] 08/07/2022 10:40:27 When Did You Quit Smoking? 16+yearssinc elastcigaret te 2002 [id number] Information not available 08/07/2022 How Many Years Have You Smoked Tobacco? 50 [id number] 35 Information not available 08/07/2022 Sex: Unknown Functional Status Question Answer Note LastModified by Organizat [employer] Details LastModified Time Do you or have you ever used any other forms of tobacco or nicotine? No [id number] 35 Information not available 08/07/2022 What is your level of alcohol consumption? Occasional [id number] 35 Information not available 08/07/2022 Mental Status None recorded. Family History Relationship Description Onset Age of this Age Resolved Age Notes LastModified by Organization Details LastModified Time Mother Heart disease [id number] Not available 08/07/2022 10:41:03 Brother Heart disease [id number] Not available 08/07/2022 10:41:03 Brother Heart disease [id number] Not available 08/07/2022 12:45:58 Father Family history of stroke [id number] Not available 08/07/2022 10:41:03 Medical History Condition Response HEART ARRHYTHMIA Y COPD Y USE OF BLOOD THINNERS Y Blood Disorder N CANCER: SPECIFY Y Past Encounters Encounter ID Performer Location Encounter Start Date Encounter Closed Date Diagnosis/Indication Diagnosis SNOMED-CT Code Diagnosis ICD10 Code Diagnosis Note [id number] Navjot Portillo MD [facility] [place] [address] [place] [address] 02/02/2021 00:00:00 02/04/2021 15:47:42 [id number] Navjot Portillo MD [facility] [place] [address] [place] [address] 07/22/2022 00:00:00 07/22/2022 14:18:40 [id number] Navjot Portillo MD [facility] [place] [address] [place] [id number] 08/09/2022 11:45:07 08/09/2022 13:49:10 Bilateral osteoarthritis of knees 5200095290 30894 M17.0 Health Concerns Section Related Observation LastModified by Organization Detai ls LastModified Time None Recorded Concern Status LastModified by Organization Details LastModified Time None Recorded Advance Directives Directive None Recorded Payers Encounter Date Sequence Insurance Name Policy Number Policy Terrazas Covered Member ID Terrazas Member ID Guarantor Name 08/09/2022 1 [employer] (MEDICARE REPLACEMENT PPO) [id number] Marky Arroyo [id number] Marky Arroyo
--- OUTSIDE RECORDS SUMMARY | 2024-10-18 00:13 | XMS_ITS | Encounter Summary ---
Author Organization [facility] Address [address] [place] [address] Care Team Providers Care Stockroom Selector Name Role Phone Sawyer Brown MD Primary Care Provider Unavail able Sawyer Brown MD Primary Care Provider Unavail able Eduardo Marin DO Primary Care Provider [phone] Sawyer Brown MD Primary Care Provider Unavail able Eduardo Marin DO Primary Care Provider [phone] Encounter Details Date Type Department Care Team (Late st Contact Info) Description 02/09/2020 Telephone [facility] Internal Medicine [address] [address] Ulices Ovalle MD [address] [place] [address] Social History Tobacco Use Types Packs/Day Years Used Date Smoking Tobacco: Former Smokeless Tobacco: Never Alcohol Use Standard Drinks/Week Comments No 0 (1 standard drink = 0.6 oz pur e alcohol) Sex and Gender Information Value Date Recorded Sex Assigned at Not on file 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 The next available is Nov. [facility] blood work completed before his Apr. appt. Please send him his labs to his house. Thank you Lynn documented in this encounter Plan of Treatment Not on file documented as of this encounter Visit Diagnoses Not on filedocumented in this encounter Care Teams Stockroom Selector Relationship Specialty Start Date End Date Sawyer Brown MD PCP - General 10/02/17 04/23/20 Sawyer Brown MD NEED INFORMATION UPDATED PCP - General 04/24/20 0 Eduardo Marin DO [address] [place] [address] PCP - General Internal Medicine 05/08/20 06/22/20 Sawyer Brown MD NEED INFORMATION UPDATED PCP - General 06/23/20 05/13/21 Eduardo Marin DO [address] [place] [address] PCP - General Internal Medicine 05/14/21 documented as of this encounter
--- OUTSIDE RECORDS SUMMARY | 2024-10-18 00:13 | XMS_ITS | Encounter Summary ---
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 Advised that we have cardiac clearance and it will be addressed on Friday. * Telephone Encounter - Ramona Mon - 10/11/2024 1:12 PM CDT Laquita w Endoscopy called asking if we had received the cardiac clearance for the pt to stop his medication on 10/14 for his procedure on 10/18. Please advise she is requesting a call back to give her an update on if we are waiting on DK or if we haven't received it. I didn't see anything in the fax. Thank you Contact: documented in this encounter Plan of Treatment Not on file documented as of this encounter Visit Diagnoses Not on filedocumented in this encounter Care Teams Subassembler Relationship Specialty Start Date End Date Raza Serra MD PCP - General Family Practice 11/04/23 documented as of this encounter
--- OUTSIDE RECORDS SUMMARY | 2024-10-18 00:13 | XMS_ITS | Encounter Summary ---
Author Organization [facility] Address [address] [place] [address] Care Team Providers Care Behavioral Analyst Name Role Phone Sawyer Brown MD Primary Care Provider Unavail able Sawyer Brown MD Primary Care Provider Unavail able Eduardo Marin DO Primary Care Provider [phone] Sawyer Brown MD Primary Care Provider Unavail able Eduardo Marin DO Primary Care Provider [phone] Encounter Details Date Type Department Care Team (Late st Contact Info) Description 02/25/2018 Lab Requisition [facility] Care DermPath Lab [address] [facility] [place] [address] Marc Miller MD [address] [place] [address] Social History Tobacco Use Types Packs/Day Years Used Date Smoking Tobacco: Never Assessed Sex and Gender Information Value Date Recorded Sex Assigned at Not on file 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 Gender Identity Not on file Sexual Orientation Not on file documented as of this encounter Plan of Treatment Not on file documented as of this encounter Procedures Procedure Name Priority Date/Time Associated Diagnosis Comments DERMATOPATHOLOGY Routine 02/24/2018 12:0 0 AM CDT documented in this encounter Results * DERMATOPATHOLOGY (02/24/2018 12:00 AM CDT) Case Report Dermatopathology Report Case: [id number] Authorizing Provider: Marc Miller MD Collected: 02/24/2018 12:00 AM Pathologist: Amber Ambrosio MD Received: 02/25/2018 11:53 AM Specimen: Skin, left dorsal index MCP joint 3:40 PM T DERMATOPATHOLOGY LABORATORY Final Diagnosis Specimen A. 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 3:40 PM CDT DERMATOPATHOLOGY LABORATORY Gross Description Specimen A: Received is one formalin filled container labeled with the patient's name and designated left dorsal index MCP joint. The specimen consists of a shave biopsy measuring [id number], bisected. Jar 0. 3:[address] [facility] DERMATOPATHOLOGY LABORATORY Microscopic Description Specimen A. SKIN, [...] junction. GMS stain is negative for fungus. 3:40 PM T DERMATOPATHOLOGY LABORATORY Disclaimer An external and internal positive and negative controls are appropriate for the histochemical, immunohistochemical and immunofluorescence stain(s) in this case (if any), except where stated explicitly. The performance characteristics of the stain(s) cited in this report were developed and its performance characteristic determined by the Dermatopathology Laboratory at [facility]. These tests need not be, and therefore are not, approved by the [place] Food and Drug Administration. The tests are used for clinical purposes. Billing Codes Specimen Charges Stain Charges 56250 1 04636 1 3:40 PM CDT DERMATOPATHOLOGY LABORATORY Embedded Images 09/20/201 8 3:40 PM CDT DERMATOPATHOLOGY LABORATORY Pathology/Cytolog y TISSUE SPECIMEN FROM SKIN / Unknown 02/24/2018 02/25/2018 11:53 AM CDT Marc Miller MD LAB - PATHOLOGY/CYTOLOGY ORD ERABLES Final Result DERMATOPATHOLOGY LABORATORY [facility] - Department of Dermatology [address] [place] [address] [address] Floor Lab [address] [phone] documented in this encounter Visit Diagnoses Not on filedocumented in this encounter Care Teams Behavioral Analyst Relationship Specialty Start Date End Date Sawyer Brown MD PCP - General 10/02/17 04/23/20 Sawyer Brown MD NEED INFORMATION UPDATED PCP - General 04/24/20 0 Eduardo Marin DO [address] [place] [address] PCP - General Internal Medicine 05/08/20 06/22/20 Sawyer Brown MD NEED INFORMATION UPDATED PCP - General 06/23/20 05/13/21 Eduardo Marin DO [address] [place] [address] PCP - General Internal Medicine 05/14/21 documented as of this encounter
--- OUTSIDE RECORDS SUMMARY | 2024-10-18 00:13 | XMS_ITS | Encounter Summary ---
Author Organization [facility] Address [address] [place] [address] Care Team Providers Care Staff Physician Name Role Phone Sawyer Brown MD Primary Care Provider Unavail able Sawyer Brown MD Primary Care Provider Unavail able Eduardo Marin DO Primary Care Provider [phone] Sawyer Brown MD Primary Care Provider Unavail able Eduardo Marin DO Primary Care Provider [phone] Encounter Details Date Type Department Care Team (Late st Contact Info) Description 02/11/[address] 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 Gender Identity Not on file Sexual Orientation Not on file documented as of this encounter Plan of Treatment Not on file documented as of this encounter Procedures Procedure Name Priority Date/Time Associated Diagnosis Comments DERMATOPATHOLOGY Routine 02/10/2018 12:0 0 AM CDT documented in this encounter Results * DERMATOPATHOLOGY (02/10/2018 12:00 AM CDT) Case Report Dermatopathology Report Case: [id number] Authorizing Provider: Marc Miller MD Collected: 02/10/2018 12:00 AM Pathologist: Rakesh Vickers MD Received: 02/11/2018 12:19 PM Specimens: A) - Skin, right lateral arm above elbow B) - Skin, left lateral elbow C) - Skin, right mid jawline 4:13 PM [facility] DERMATOPATHOLOGY LABORATORY Final Diagnosis Specimen A. 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 SKIN, left lateral elbow: SOLAR LENTIGO (L81.4) DERMAL HEMORRHAGE (I99.8) (see microscopic description) Specimen C. SKIN, right mid jawline: JUNCTIONAL MELANOCYTIC PROLIFERATION; PRESENT AT MARGIN (D48.5) (see microscopic description and comment) 4:13 PM [facility] DERMATOPATHOLOGY LABORATORY Clinical History A: R/O ISK vs other. B: R/O bruise vs lentigo vs other. C: R/O lentigo, SK, nevus, dys nevus. 4:13 PM T DERMATOPATHOLOGY LABORATORY Gross Description Specimen A: Received is one formalin filled container labeled with the patient's name and designated right lateral arm above elbow. The specimen consists of a shave biopsy measuring [id number]. Jar 0. Specimen B: Received is one formalin filled container labeled with the patient's name and designated left lateral elbow. The specimen consists of a shave biopsy measuring [id number]. Jar 0. Specimen C: Received is one formalin filled container labeled with the patient's name and designated right mid jawline. The specimen consists of a shave biopsy measuring [id number]. Jar 0. 4:13 PM [facility] DERMATOPATHOLOGY LABORATORY Microscopic Description Specimen A. [...] lesion in its entirety. 8 4:13 PM CDT DERMATOPATHOLOGY LABORATORY Disclaimer An external and internal positive and negative controls are appropriate for the histochemical, immunohistochemical and immunofluorescence stain(s) in this case (if any), except where stated explicitly. The performance characteristics of the stain(s) cited in this report were developed and its performance characteristic determined by the Dermatopathology Laboratory at [facility]. These tests need not be, and therefore are not, approved by the [place] Food and Drug Administration. The tests are used for clinical purposes. Billing Codes Specimen Charges Stain Charges 03988 97781 78197 1 1 1 26745 1 8 4:13 PM CDT DERMATOPATHOLOGY LABORATORY Embedded Images 8 4:13 PM CDT DERMATOPATHOLOGY LABORATORY Pathology/Cytology TISSUE SPECIMEN FROM SKIN / Unknown 02/10/2018 02/11/2018 12:19 PM CDT Miscellaneous samples (specimen) TISSUE SPECIMEN FROM SKIN / Unknown 02/10/2018 02/11/2018 12:19 PM CDT Miscellaneous samples (specimen) TISSUE SPECIMEN FROM SKIN / Unknown 02/10/2018 02/11/2018 12:19 PM CDT us Marc Miller MD LAB - PATHOLOGY/CYTOLOGY ORD ERABLES Final Result DERMATOPATHOLOGY LABORATORY [facility] - Department of Dermatology [address] [place] [address], [address] [place] [address], [facility] [phone] documented in this encounter Visit Diagnoses Not on filedocumented in this encounter Care Teams Staff Physician Relationship Specialty Start Date End Date Sawyer Brown MD PCP - General 10/02/17 04/23/20 Sawyer Brown MD NEED INFORMATION UPDATED PCP - General 04/24/20 0 Eduardo Marin DO [address] [place] [address] PCP - General Internal Medicine 05/08/20 06/22/20 Sawyer Brown MD NEED INFORMATION UPDATED PCP - General 06/23/20 05/13/21 Eduardo Marin DO [address] [place] [address] PCP - General Internal Medicine 05/14/21 documented as of this encounter
--- OUTSIDE RECORDS SUMMARY | 2024-10-18 00:13 | XMS_ITS ---
Author Organization [facility] Address [address] [place], [place] [address] Care Team Providers Care Fork Repairer Name Role Phone HUGO ALCANTARIC Unavailable [phone] Raza Serra Unavailable Unavailable REASON FOR VISIT The patient reports that his toe no longer hurts. It is swollen compared to the others, but it is getting better. It no longer is causing issues Medications Medication SIG (Take, Route, Frequency, Duration) Notes Start Date End Date Status Jardiance 10 MG 1 tablet Orally Once a day Active traZODone HCl 50 MG 1 tablet at bedtime as needed Orally Once a day Active Eliquis 5 MG as directed Orally Active Cialis 20 MG 1 tablet as needed O rally Once a day Active Testosterone 20.25 MG/1.25GM (1.62%) 1 packet to skin in the morning to shoulder and upper arms Transdermal Once a day Active Encounters Encounter Location Date Provider Diagnosis [facility] [place] [address] [place], [place] [id number] 08/09/2024 RASHAWN WILDER Nondisplaced fractur e of proximal phalanx of left lesser toe(s), subsequent encounter for fracture with routine healing S92.515D and Left foot pain M79.672 Assessments Encounter Date Diagnosis (ICD Code) Assessment Notes Treatment Notes Treatment Clinical Notes Section Notes 08/09/2024 Nondisplaced fracture of proximal phalanx of left lesser toe(s), subsequent encounter for fracture with routine healing (ICD-10 - S92.515D) Fracture Resolved The fracture has resolved. I advised the patient to continue to monitor this area for pain or swelling. I also advised the patient to avoid bare feet or any high impact activities until it is done healing. The patient understands to contact the office if any signs of symptoms return. 08/09/2024 Left foot pain (ICD-10 - M79.672) Plan Of Treatment Treatment Notes Assessment Notes Nondisplaced fracture of pro ximal phalanx of left lesser toe(s), subsequent encounter for fracture with routine healing Fracture Resolved The fracture has resolved. I advised the patient to continue to monitor this area for pain or swelling. I also advised the patient to avoid bare feet or any high impact activities until it is done healing. The patient understands to contact the office if any signs of symptoms return. Next Appt Details Follow Up: prn, Reason: Provider Name:RASHAWN WILDER, 02:10:00 PM, [address], [address], [id number], Progress Notes * Marky MANCINIDOB:1940 ( 83 yo M)Acc No.[id number]:08/09/2024 Patient: Marky CANALES Provider: Param Wilder DPM :1940 A ge:83 Y S ex:Male Date:08/09/2024 Address:[address] [place] [address] [facility] [id number] Subjective: * Chief Complaints: * T he patient reports that his toe no longer hurts. It is swollen compared to the others, but it is getting better. It no longer is causing issues * HPI: H PI: [facility]. Patient states their problem is, improving. Patient states that his left foot is still swollen, but he is having no pain. MA: ars. * ROS: G eneral / Constitutional: Patient [...] adiographs: Right Foot T here is a well-healed transverse fracture of the proximal phalanx at the neck of the phalanx. Assessment: * Assessment: 1. N ondisplaced fracture of proximal phalanx of left lesser toe(s), subsequent encounter for fracture with routine healing - S92.515D (Primary) 2 . L eft foot pain - M79.672? Plan: * Treatment: * Procedure Codes: 7 3630 X-RAY EXAM OF FOOT, Modifiers: LT * Follow Up: p rn * Billing Information: * Visit Code: 39684 Office Visit, Est Pt., Level 3. * Procedure Codes: 64831 X-RAY EXAM OF FOOT. Modifiers: LT * Sign off status: Completed true * Provider: Param Wilder DPM Date: 0 08/09/2024 Generated for Glory gudino/Guerline/Yasmin on: 0 10/18/2024 12:12 AM CDT History and Physical Notes * HPI (History of Present Illness) Category Sub-Category Detail Notes Category Not es HPI Follow Up Visit Patient presents for follow-up visit for a fracture check. Patient states their problem is, improving. Patient states that his left foot is still swollen, but he is having no pain. MA: ars Examination Category Sub-Category Detail Notes Category Not [...] digit Radiographs Right Foot There is a well- healed transverse fracture of the proximal phalanx at the neck of the phalanx
--- OUTSIDE RECORDS SUMMARY | 2024-10-18 00:13 | XMS_ITS | Clinical Summary ---
Author Organization 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
--- OUTSIDE RECORDS SUMMARY | 2024-10-18 00:14 | XMS_ITS | Patient Health Record ---
Author Organization [facility] Address [address] [facility] [address] [place], [place] [address] Care Team Providers Care Dry Sander Name Role Phone RASHAWN WILDER Unavailable [phone] Raza Serra Unavailable Unavailable Allergies No Known Allergies Reason For Referral No Information Medications Medication SIG (Take, Route, Frequency, Duration) Notes Start Date End Date Status Cialis 20 MG 1 tablet as needed O rally Once a day Active Testosterone 20.25 MG/1.25GM (1.62%) 1 packet to skin in the morning to shoulder and upper arms Transdermal Once a day Active Jardiance 10 MG 1 tablet Orally Once a day Active traZODone HCl 50 MG 1 tablet at bedtime as needed Orally Once a day Active Eliquis 5 MG as directed Orally Active Encounters Encounter Location Date Provider Diagnosis [facility] [place] [address] [place] [id number] 10/11/2024 RASHAWN SNOOK Tinea unguium B35.1 and Contusion of left foot, initial encounter S90.32XA [facility] [place] [address] [place] [id number] 07/12/2024 RASHAWN SNOOK Tinea unguium B35.1 ; Nondisplaced fracture of proximal phalanx of left lesser toe(s), initial encounter for closed fracture S92.515A ; Acquired keratosis [keratoderma] palmaris et plantaris L85.1 ; Atherosclerosis of comanche arteries of extremities with intermittent claudication, bilateral legs I70.213 ; Pain in right foot M79.671 and Pain in left foot M79.672 [facility] [place] [address] [place] [id number] 07/26/2024 RASHAWN SNOOK Pain in left foot M79.672 and Nondisplaced fracture of proximal phalanx of left lesser toe(s), subsequent encounter for fracture with routine healing S92.515D [facility] [place] [address] [place], [place] [phone] 08/09/2024 RASHAWN SNOOK Nondisplaced fractur e of proximal phalanx of left lesser toe(s), subsequent encounter for fracture with routine healing S92.515D and Left foot pain M79.672 Assessments Encounter Date Diagnosis (ICD Code) Assessment Notes Treatment Notes Treatment Clinical Notes Section Notes 07/12/2024 Tinea unguium (ICD-10 - B35.1) Nails 1-5 Bilateral were debrided extensively with nail nippers and emery board, reducing length and girth to pink healthy tissue with any subungual debris and necrotic tissue removed 07/12/2024 Nondisplaced fracture of proximal phalanx of left lesser toe(s), initial encounter for closed fracture (ICD-10 - S92.515A) 07/26/2024 Pain in left foot (ICD-10 - [...] shoe as directed and to limit activity. 08/09/2024 Nondisplaced fracture of proximal phalanx of [...] 08/09/2024 Left foot pain (ICD-10 - M79.672) 10/11/2024 Tinea unguium (ICD-10 - B35.1) FUNGAL TOENAILS: Discussed various treatment options for fungal toenails including debridement, topical antifungals, oral antifungals, toenail avulsion, or toenail matrixectomy. NAIL DEBRIDEMENT: Nails 1-5 Bilateral were debrided extensively with nail nippers and emery board, reducing length and girth to pink healthy tissue with any subungual debris and necrotic tissue removed 10/11/2024 Contusion of left foot, initial encounter (ICD-10 - S90.32XA) Rest: Rest the affected foot as much as possible. Continue CAM: Advised the patient to continue to wear the CAM boot as directed and to limit activity. 07/12/2024 Acquired keratosis [keratoderma] palmaris et plantaris (ICD-10 - L85.1) A total of 2 corns or calluses, as described in the note above, were cut and pared utilizing a #15 blade 07/12/2024 Atherosclerosis of comanche arteries of extremities with intermittent claudication, bilateral legs (ICD-10 - I70.213) 07/12/2024 Pain in right foot (ICD-10 - M79.671) 07/12/2024 Pain in left foot (ICD-10 - M79.672) 07/12/2024 Other Fracture Care: I discussed the nature and etiology of the injury to the patient and answered all questions. I discussed rest, immobilization, and time frame for healing. I explained that lack of compliance can lead to delayed healing or nonunion. Surgical Shoe: A surgical shoe was dispensed. Plan Of Treatment Next Appt Details Provider Name:RASHAWN MEÑO, 02:10:00 PM, [address], [place], [place], [id number], Insurance Providers Payer Name Payer Address Payer Phone Subscriber Number Group Number Insured Name Patient Relationship to Insured Coverage Start Date Coverage End Date [employer] [address] KERRY BRIRachael JENNIE [phone] [id number] Marky Arryoo Self - patient is the insured Medical (General) History Medical History History ICD Code Pneumonia Cancer GERD skin cancer heart/disease/failure
--- OUTSIDE RECORDS SUMMARY | 2024-10-18 00:14 | XMS_ITS | CONTINUITY OF CARE DOCUMENT ---
Author Name ogrdon sonnyailyn Address Unknown Organization [facility] Address [address] [place] [address] Phone [phone] Care Team Providers Care Tin Flipper Name Role Phone Ana Lilia DELEON, Tavo Unavailable LIBIA BURROUGHS MD Unavailable [phone] HERB LOU DO Unavailable [phone] PROBLEMS Condition Status Date Provider Notes Chest [...] In-person encounter Office Visit Leonard Carmona DO [facility] Office - In-person encounter Office Visit Leonard Carmona DO [facility] Office - In-person encounter Office Visit Leonard Carmona DO [facility] Office - In-person encounter Office Visit Leonard Carmona DO [facility] Office - In-person encounter Office Visit Leonard Carmona DO [facility] Office - In-person encounter Office Visit Leonard Albemarle [facility] - [facility] encounter [facility] Family History of CVA or Stroke: VITAL SIGNS Date Observation Value Provider Body Mass Index (Ratio) 23.48 kg/m2 Willam kraft [facility] blood pressure, cuff size regular Kr ricardo Jacinto blood pressure, diastolic 70 mm[Hg] Nathaniel louis [place] blood pressure, systolic 120 mm[Hg] Nathanieli brannon [place] oxygen saturation, oximetry 98 % Madhavi [place] pulse rate 64 /[facility] E&M 20 /[facility] weight E&M 159 [lb_av] Madhavi [place] height E&M 69 [in_i] Chastity Sandoval Body Mass Index (Ratio) 23.18 kg/m2 Willam kraft [facility] blood pressure, diastolic 64 mm[Hg] Mi heena [facility] blood pressure, systolic 116 mm[Hg] Itz helle [facility] blood pressure, resting No Michael noé [facility] oxygen saturation, oximetry 96 % Dennise [facility] pulse rate 76 /min Dennise [facility] respiratory rate E&M 18 /min Monica e [facility] weight E&M 157 [lb_av] Dennise [facility] height E&M 69 [in_i] Dennise [facility] Body Mass Index (Ratio) 23.48 kg/m2 Edna Brady FARM IMPLEMENT ENGINE MECHANIC blood pressure, diastolic 80 mm[Hg] Joaquin rsha [facility] blood pressure, systolic 140 mm[Hg] [facility] génesis GuillenKarl oxygen saturation, oximetry 96 % Rianna [facility] respiratory rate E&M 16 /min [facility] 80 /min [facility] weight E&M 159 [lb_av] [facility] height E&M 69 [in_i] [facility] Body Mass Index (Ratio) 23.89 kg/m2 [...] blood pressure, diastolic 60 mm[Hg] Nathaniel silva [place] blood pressure, systolic 102 mm[Hg] Maryan brannon [facility] pulse rate 74 /min Madhavi Casey oxygen saturation, oximetry 96 % Madhavi [place] respiratory rate E&M 16 /min Madhavi [place] [...] 3.5-5.2 3 sodium, serum 140 mmol/L [employer] [phone]/11/0 3 urea nitrogen/creatinin e ratio, serum 14 [...] Estab. 3 platelet count 224 X10E3/UL [employer] [phone]/11/0 3 red blood cell distribution width 11.9 [...] active APPLY 1 PACKET TOPICALLY ONCE DAILY Madhaiv Casey TIA #37.5, 30 days supply, Prescribed [...] Payer name Policy type / Coverage type [place] red constitution party ID [facility] MEDICARE ADVANTAGE (PPO) Other [id number] ADVANCE DIRECTIVES Name Date POWER OF UTILITY SYSTEMS REPAIRER OPERATOR TREATMENT PLAN Date Name Performer Electrophysiology:at ria [...] been doing well. Leonard Carmona DO Electrophysiology FARM IMPLEMENT ENGINE MECHANIC :patient is staying in [facility] with the [...] at this time. O rders: Param KG (CPT-75019) Awilda Haro FARM IMPLEMENT ENGINE MECHANIC Electrophysiology: u jessikale to tolerate amiodarone. 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 n o recurrences Alea Brady FARM IMPLEMENT ENGINE MECHANIC Electrophysiology: d ual chamber pacemaker n o syncopal episodes recorded Orders: S chedule ICD Check (*) S chedule Followup (*) Alea Brady FARM IMPLEMENT ENGINE MECHANIC Electrophysiology: a trial therapies turned on p ost ablation 02/22 o ne episode of afib lasting 1 hour Orders: S chedule ICD Check (*) S chedule Followup (*) 04/04/20 d evice check reveals AF Alea Brady FARM IMPLEMENT ENGINE MECHANIC Electrophysiology - review/sign~M:s/p ablation 2013 for SVT [...] 0.4% at/af Robel Marsh NP Electrophysiology - [facility] letter sent: brien bunch to tolerate amiodarone [...] amio since 12/22 O rders: E KG (CPT-65532) Leonard Carmona DO EP : O rders: S chedule ICD Check (*) S chedule Followup (*) Robel Marsh FARM IMPLEMENT ENGINE MECHANIC EP :atrial therapies turned on p ost ablation 02/22 o ne episode of afib lasting 1 hour Orders: S chedule ICD Check (*) S chedule Followup (*) Robel Marsh FARM IMPLEMENT ENGINE MECHANIC EP :dual chamber pac emaker n o syncopal episodes recorded Orders: S chedule ICD Check (*) S chedule Followup (*) Robel Marsh FARM IMPLEMENT ENGINE MECHANIC EP :Turned on Atrial therapies. u nable to tolerate amiodarone and remains on eliquis with prior tia S /P PVI 02/22, with no recurrences, off amio since 12/22 O rders: E KG (CPT-55387) Robel Marsh [place] EP:S/P DDD PPM n [...] SYS completed ICM Interrogation, Remote (Tech) Leonard Albemarle DO INTERROGATION EVAL REMOTE </30 D TECH REVIEW completed Pacemaker Interrogation, Remote (Tech) Leonard Albemarle DO INTERROGATION REMOTE </90 D AMBULATORY SERVICE REPRESENTATIVE REVIEW completed Pacemaker Interrogation, Remote (Prof) Leonard Albemarle DO INTERROGATION EVAL REMOTE </90 D 1/2/LAN ANALYST LEAD P completed Pacemaker Interrogation, Remote (Tech) Leonard Albemarle DO INTERROGATION REMOTE </90 D AMBULATORY SERVICE REPRESENTATIVE REVIEW completed Pacemaker Interrogation, Remote (Prof) Leonard Albemarle DO INTERROGATION EVAL REMOTE </90 D 1/2/LAN ANALYST LEAD P completed Schedule Pacer Check Leonard Glas cock DO completed Schedule Followup Leonard Glascoc k DO completed EKG Leonard Albemarle DO completed Pacemaker Interrogation, Remote (Tech) Leonard Albemarle DO INTERROGATION REMOTE </90 D AMBULATORY SERVICE REPRESENTATIVE REVIEW completed Pacemaker Interrogation, Remote (Prof) Leonard Albemarle DO INTERROGATION EVAL REMOTE </90 D 1/2/LAN ANALYST LEAD P completed Pacemaker Interrogation, Remote (Tech) Leonard Albemarle DO INTERROGATION REMOTE </90 D AMBULATORY SERVICE REPRESENTATIVE REVIEW completed Pacemaker Interrogation, Remote (Prof) Leonard Albemarle DO INTERROGATION EVAL REMOTE </90 D 1/2/LAN ANALYST LEAD P completed Pacemaker Interrogation, Remote (Tech) Leonard Albemarle DO INTERROGATION REMOTE </90 D AMBULATORY SERVICE REPRESENTATIVE REVIEW completed Pacemaker Interrogation, Remote (Prof) Leonard Albemarle DO INTERROGATION EVAL REMOTE </90 D 1/2/LAN ANALYST LEAD P completed Schedule Pacer Check Leonard Glas cock DO completed Schedule Followup Leonard Glascoc k DO completed EKG Leonard Albemarle DO completed SNOMED-CT: 022803554367041 Current Medications Documented Leonard Albemarle DO completed Pacemaker Interrogation, Remote (Tech) Leonard Albemarle DO INTERROGATION REMOTE </90 D AMBULATORY SERVICE REPRESENTATIVE REVIEW completed Pacemaker Interrogation, Remote (Prof) Leonard Albemarle DO INTERROGATION EVAL REMOTE </90 D 1/2/LAN ANALYST LEAD P completed Pacemaker Interrogation, Remote (Tech) Leonard Albemarle DO INTERROGATION REMOTE </90 D AMBULATORY SERVICE REPRESENTATIVE REVIEW completed Pacemaker Interrogation, Remote (Prof) Leonard Albemarle DO INTERROGATION EVAL REMOTE </90 D 1/2/LAN ANALYST LEAD P completed Schedule Followup Robel Hu FARM IMPLEMENT ENGINE MECHANIC in six months com pleted Schedule ICD Check Robel Hu FARM IMPLEMENT ENGINE MECHANIC in six months co mpleted EKG Leonard Carmona DO completed SNOMED-CT: 277455103295175 Current Medications Documented Leonard Carmona DO completed Pacemaker Interrogation, Remote (Tech) Leonard Albemarle DO INTERROGATION REMOTE </90 D AMBULATORY SERVICE REPRESENTATIVE REVIEW completed Pacemaker Interrogation, Remote (Prof) Leonard Albemarle DO INTERROGATION EVAL REMOTE </90 D 1/2/LAN ANALYST LEAD P completed EKG Leonard Hadleyck DO completed SNOMED-CT: [id number] Current Medications Documented Leonard Hadleyck DO completed EKG Sarai Govea RN completed SNOMED-CT: 291495124950653 Current Medications Documented Leonard Hadleyck DO completed EKG Leonard Carmona DO completed
--- OUTSIDE RECORDS SUMMARY | 2024-10-18 00:14 | XMS_ITS | Encounter Summary ---
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
--- OUTSIDE RECORDS SUMMARY | 2024-10-18 00:14 | XMS_ITS ---
Author Organization [facility] Address [address] [place], [place] [id number] Care Team Providers Care Bank Appraiser Name Role Phone RASHAWN WILDER Unavailable [phone] Raza Serra Unavailable Unavailable Allergies No Known Allergies REASON FOR VISIT The patient stubbed his left foot 2 weeks ago. The pain has not gotten any better. It hurts to walkon., Patient presents for at-risk foot care . The patient has painful toenails that cause difficulty with ambulation and shoegear. The onset is gradual Medications Medication SIG (Take, Route, Frequency, Duration) [...] Location Date Provider Diagnosis [facility] [place] [address] [place], [place] [id number] 10/11/2024 RASHAWN WILDER Tinea unguium B35.1 and Contusion of left foot, initial encounter S90.32XA Assessments Encounter Date Diagnosis (ICD Code) Assessment Notes Treatment Notes Treatment Clinical Notes Section Notes 10/11/2024 Tinea unguium (ICD-10 - B35.1) FUNGAL [...] boot as directed and to limit activity. Plan Of Treatment Treatment Notes Assessment Notes Tinea unguium FUNGAL TOENAILS: Discussed various treatment options for fungal toenails including debridement, topical antifungals, oral antifungals, toenail avulsion, or toenail matrixectomy. NAIL DEBRIDEMENT: Nails 1-5 Bilateral were debrided extensively with nail nippers and emery board, reducing length and girth to pink healthy tissue with any subungual debris and necrotic tissue removed Contusion of left foot, initial encounte r Rest: Rest the affected foot as much as possible. Continue CAM: Advised the patient to continue to wear the CAM boot as directed and to limit activity. Next Appt Details Follow Up: 2 Weeks, Reason: Repeat xrays 3 views of the left foot. See how CAM boot helped Provider Name:RASHAWN WILDER, 02:10:00 PM, [address], [address], [id number], Progress Notes * Marky MANCINIDOB:1940 ( 83 yo M)Acc No.[id number]:10/11/2024 Patient: Marky CANALES Provider: Param Wilder DPM :1940 A ge:83 Y S ex:Male Date:10/11/2024 Address:[address] [place] [address] [address] [id number] Subjective: * Chief Complaints: * 1 . The patient stubbed his left foot 2 weeks ago. The pain has not gotten any better. It hurts to walk on.. 2. Patient presents for at-risk foot care . The patient has painful toenails that cause difficulty with ambulation and shoegear. The onset is gradual. * HPI: H PI: General care P atient presents to the office for at risk foot care. Patient states that their nails are thickened, elongated and painful. Patient states that it is aggravated by shoe gear. Onset is gradual. Patient denies being diabetic., Patient is taking prescription blood thinners., Date last seen by Dr. Serra was September 2024. MAR Shultz ew Complaint Established patient presents with a new complaint., Patient complains of an issue to left, fifth digit injury. Patient states two weeks ago he stubbed his toe on a suitcase and had pain and bruising present. Patient states bruising is better today, but he is still experiencing pain. MAR ESTRADA. sample. * ROS: G eneral / Constitutional: Patient [...] confusion, difficulty speaking, dizziness. * Medical History: P neumonia, Cancer, GERD, Skin cancer, Heart/disease/failure. * Family History: N o Family History documented.. * Social History: H istory of Tobacco. * Medications: T aking Testosterone 20.25 MG/1.25GM (1.62%) Gel 1 packet to skin in the morning to shoulder and upper arms Transdermal Once a day , Taking Cialis 20 MG Tablet 1 tablet as needed Orally Once a day , Taking Eliquis 5 MG Tablet as directed Orally , Taking traZODone HCl 50 MG Tablet 1 tablet at bedtime as needed Orally Once a day , Taking Jardiance 10 MG Tablet 1 tablet Orally Once a day , Medication List reviewed and reconciled with the patient * Allergies: N .K.D.A. Objective: * Vitals: * Examination: C onstitutional: Constitutional T he patient is awake, alert, well developed, well groomed and well nourished. D ermatologic: Skin findings: S kin is thin, atrophic and lacking pedal hair. Nail pathology: N ails 1, 2, 3, 4, and 5 bilateral are elongated, thick, discolored, and dystrophic with subungual debris. They are painful to palpation. ? V ascular: Dorsalis pedis pulse: 1 /4 b ilateral. Posterior tibial pulse: 0 /4 b ilateral. Capillary refill: g reater than 3 seconds. Edema: N o edema, bilateral. N eurologic: Gross sensation G ross sensation is intact to light touch.? M usculoskeletal: Muscle Strength M uscle strength is 5/5 in regards to dorsiflexion, plantarflexion, inversion, and eversion in bilateral lower extremities. Pain on palpation p ain on palpation to the 2nd, 3rd, and 4th metatarsal necks. Pain with palpation and ROM of all lesser digits 2-5 of the left foot.? R adiographs: Left Foot N o evidence of fracture, dislocation, or other osseous lesions. Xray Order T est Requested: 3 Views Weightbearing (AP, LAT, Oblique) Foot, left. Assessment: * Assessment: 1. T katelynn shannon - B35.1 (Primary) 2 . C ontusion of left foot, initial encounter - S90.32XA Plan: * Treatment: 2. C ontusion of left foot, initial encounter Notes: Rest: Rest the affected foot as much as possible. Continue CAM: Advised the patient to continue to wear the CAM boot as directed and to limit activity. * Immunizations: Immunization record has been reviewed and updated. * Follow Up: 2 Weeks (Reason: Repeat xrays 3 views of the left foot. See how CAM boot helped) * Billing Information: * Visit Code: * Procedure Codes: * Electronic signature of RASHAWN WILDER DPM on 10/18/2024 at 12:13 AM CDT Sign off status: Pending * Provider: Param Wilder DPM Date: 0 10/11/2024 Generated for Glory gudino/Guerline/Toroitting on: 0 10/18/2024 12:13 AM CDT History and Physical Notes * HPI (History of Present Illness) Category Sub-Category Detail Notes Category Not es HPI General care Patient presents to the office for at risk foot care. Patient states that their nails are thickened, elongated and painful. Patient states that it is aggravated by shoe gear. Onset is gradual. Patient denies being diabetic., Patient is taking prescription blood thinners., Date last seen by Dr. Serra was September 2024. MA LB sample New Complaint Established patient presents with a new complaint., Patient complains of an issue to left, fifth digit injury. Patient states two weeks ago he stubbed his toe on a suitcase and had pain and bruising present. Patient states bruising is better today, but he is still experiencing pain. MAR ESTRADA Examination Category Sub-Category Detail Notes Category Not es Dermatologic Skin findings: Skin is thin, at rophic and lacking pedal hair Nail pathology: Nails 1, 2, 3, 4, an d 5 bilateral are elongated, thick, discolored, and dystrophic with subungual debris. They are painful to palpation Neurologic Gross sensation Gross sensation is intact to light touch Vascular Dorsalis pedis pulse: 1/4 bilateral Edema: No edema, bilateral Capillary refill: greater than 3 secon ds Posterior tibial pulse: 0/4 bilateral Musculoskeletal Muscle Strength Muscle strength is 5/5 in regards to dorsiflexion, plantarflexion, inversion, and eversion in bilateral lower extremities Pain on palpation pain on palpation to the 2nd, 3rd, and 4th metatarsal necks. Pain with palpation and ROM of all lesser digits 2-5 of the left foot Constitutional Constitutional The patient is a wake, alert, well developed, well groomed and well nourished Radiographs Left Foot No evidence of f racture, dislocation, or other osseous lesions Xray Order Test Requested: 3 Vi ews Weightbearing (AP, LAT, Oblique) Foot, left
[2024-10-18 06:25] VITALS: BP 133/72; PULSE 72; RESP 18; TEMP 36.2; O2SAT 97
[2024-10-18] MEDS: LACTATED RINGERS 1,000 ML 150 ML IV CONT (06:35)
--- NOTE | 2024-10-18 07:11 | WPDANESEPPF ---
Anes - Initial Pre Proc Eval Procedure: Operation Date: 10/18/24 07:30 Proposed Procedures p Colonoscopy - Carlos West MD Date/Time: 10/18/24 07:11 Surgeon: Carlos West MD Pre Op Diagnosis: hx of cancer Patient Data Age: 83 Gender: M Height: 1.75 m Weight: 65 kg Last Vital Signs Temp 36.2 C L 10/18/24 06:25 Pulse 72 10/18/24 06:25 Resp 18 10/18/24 06:25 BP 133/72 10/18/24 06:25 Pulse Ox 97 10/18/24 06:25 O2 Del Method Room Air 10/18/24 06:25 Allergies Allergy/AdvReac Type Severity Reaction Status Date / Time DICLOFENAC SODIUM AdvReac Severe SEVERE GI Uncoded 10/18/24 06:23 UPSET Home Medications ?Medication ?Instructions ?Recorded ?Confirmed ?Type tadalafil 20 mg tablet (Cialis) 20 mg PO DAILY PRN Erectile 06/28/19 08/24/24 History Dysfunction apixaban 5 mg tablet (Eliquis) 5 mg PO BID 06/29/19 10/18/24 History ascorbic acid (vitamin C) 500 mg 500 mg PO BID 04/14/20 10/18/24 History capsule krill oil 500 mg capsule 500 mg PO DAILY 04/14/20 10/18/24 History cholecalciferol (vitamin D3) 50 50 mcg PO DAILY 07/09/22 10/18/24 History mcg (2,000 unit) capsule coenzyme Q10 100 mg capsule (Co 100 mg PO DAILY 07/09/22 10/18/24 History Q-10) vitamin B complex (B 1 tablet PO DAILY 07/09/22 10/18/24 History Complex-Vitamin B12 tablet) umeclidinium 62.5 mcg-vilanterol 1 inh inhalation DAILY 12/02/23 10/18/24 History 25 mcg/actuation powdr for inhalation (Anoro Ellipta) diclofenac sodium 1 % topical gel 4 g topical QID PRN shoulder pain 01/16/24 08/24/24 Rx #100 grams empagliflozin 10 mg tablet 10 mg PO DAILY 03/30/24 10/18/24 History (Jardiance) trazodone 50 mg tablet See Rx Instructions .Route 05/20/24 08/24/24 Rx .COMPLEX #90 tabs omeprazole 20 mg capsule,delayed 20 mg PO DAILY 06/10/24 10/18/24 History release testosterone (AndroGel) 1 pump topical DAILY #75 grams 08/19/24 10/18/24 Rx albuterol sulfate 90 mcg/actuation See Rx Instructions .Route 10/18/24 10/18/24 Rx aerosol inhaler .COMPLEX #8.5 grams Patient hx anesthesia problems: none Family hx anesthesia problems: none Results Review: All pre-operative results and documents have been reviewed as part of the pre-operative evaluation. [facility] Past Medical History Medical History COPD (chronic obstructive pulmonary disease) TIA (transient ischemic attack) SVT (supraventricular tachycardia) CHF (congestive heart failure) <35% Emphysema of lung Episode of anxiety GERD without esophagitis Heart disease, unspecified MARLENY (obstructive sleep apnea) Presence of cardiac pacemaker Pulmonary nodules Bronchitis Surgical History Surgical History History of appendectomy History of cholecystectomy History of foot surgery bilateral plantar fasciotomy History of hernia repair History of tonsillectomy History of repair of rotator cuff right 1999, left 2003 History of arthroscopic knee surgery right 1986, left 2011 Family History Family History Grandparent Family history of heart disease in male family member before age 55, Onset Age: 78 Family history of cardiovascular disease, Onset Age: 80 Cerebrovascular accident, Onset Age: 83 Mother Family history of heart disease in male family member before age 55, Onset Age: 95 Family history of cardiovascular disease, Onset Age: 96 Patient's mother is , Onset Age: 95 Father Family history of heart disease in male family member before age 55, Onset Age: 87 Patient's father is , Onset Age: 87 Family history of Alzheimer's disease, Onset Age: 87 Cerebrovascular accident, Onset Age: 88 Macular degeneration Sibling Malignant neoplasm of prostate Patient's brother is Patient's sister is in good health Family history of cardiovascular disease Macular degeneration Social History Social History Smoking packs per day: 1 Smoking cigarettes per day: 20.0 Years smoked: 50 Smoking pack-years: 50.00 Smoking status: Former smoker Tobacco type: cigarettes Second hand tobacco smoke exposure: No Smoking end date: 12/07/02 Alcohol intake: current Drinks per week: 1 Alcohol use details: GLASS OF WINE Substance use: never Substance use type: does not use Do You Feel Safe in your Home?: Yes Lack of Transportation: No Lack of Food: Never True Current Housing: I Have Housing Concerned About Future Housing: No Difficulty Paying Gas/Electric Bills: No Difficulty Paying for Meds: No Currently Unemployed: No Education: Trade/Vocational Certificate Difficulty w/ Childcare or Family Care: No Living arrangements: alone Additional living arrangements comments: Occupation/Education: retired Gender identity (if verbalized by the patient): Male Sexual Orientation (if Verbalized by the Patient): Straight or Heterosexual Spiritual care concerns: No Agree to blood products: Yes Anes - Eval Final PreProcedure Day of Procedure 10/18/24 07:11 Patient weight: normal Heart: regular rate and rhythm Lungs: clear to auscultation Airway: Mallampati scale class II Neurological: alert and oriented Last oral intake: >/= 8 hours ASA classification: IV Emergent: no Anesthetic plan: proceed Anesthesia type and monitoring: general GIVS and standard monitoring Results Review: All pre-operative results and documents have been reviewed as part of the pre-operative evaluation. Informed Consent: The patient's anesthetic plan and its attendant risks and benefits were discussed with the patient/family/POA. Questions were solicited and answers provided to the satisfaction of the patient/family/POA.
--- NOTE | 2024-10-18 07:28 | PM.IMHP ---
H&P: HPI History of Present Illness Date/Time: 10/18/24 07:28 Chief Complaint: History of colorectal cancer Narrative: the patient had a left hemicolectomy in 2002 for colorectal cancer. He has been undergoing colonoscopies every 5 years. Review of Systems Review of Systems: All systems reviewed & are unremarkable except as noted in HPI and below PMFSH Past Medical History Medical History COPD (chronic obstructive pulmonary disease) TIA (transient ischemic attack) SVT (supraventricular tachycardia) CHF (congestive heart failure) <35% Emphysema of lung Episode of anxiety GERD without esophagitis Heart disease, unspecified MARLENY (obstructive sleep apnea) Presence of cardiac pacemaker Pulmonary nodules Bronchitis Surgical History Surgical History History of appendectomy History of cholecystectomy History of foot surgery bilateral plantar fasciotomy History of hernia repair History of tonsillectomy History of repair of rotator cuff right 1999, left 2003 History of arthroscopic knee surgery right 1986, left 2011 Family History Family History Grandparent Family history of heart disease in male family member before age 55, Onset Age: 78 Family history of cardiovascular disease, Onset Age: 80 Cerebrovascular accident, Onset Age: 83 Mother Family history of heart disease in male family member before age 55, Onset Age: 95 Family history of cardiovascular disease, Onset Age: 96 Patient's mother is , Onset Age: 95 Father Family history of heart disease in male family member before age 55, Onset Age: 87 Patient's father is , Onset Age: 87 Family history of Alzheimer's disease, Onset Age: 87 Cerebrovascular accident, Onset Age: 88 Macular degeneration Sibling Malignant neoplasm of prostate Patient's brother is Patient's sister is in good health Family history of cardiovascular disease Macular degeneration Social History Social History Smoking packs per day: 1 Smoking cigarettes per day: 20.0 Years smoked: 50 Smoking pack-years: 50.00 Smoking status: Former smoker Tobacco type: cigarettes Second hand tobacco smoke exposure: No Smoking end date: 12/07/02 Alcohol intake: current Drinks per week: 1 Alcohol use details: GLASS OF WINE Substance use: never Substance use type: does not use Do You Feel Safe in your Home?: Yes Lack of Transportation: No Lack of Food: Never True Current Housing: I Have Housing Concerned About Future Housing: No Difficulty Paying Gas/Electric Bills: No Difficulty Paying for Meds: No Currently Unemployed: No Education: Trade/Vocational Certificate Difficulty w/ Childcare or Family Care: No Living arrangements: alone Additional living arrangements comments: Occupation/Education: retired Gender identity (if verbalized by the patient): Male Sexual Orientation (if Verbalized by the Patient): Straight or Heterosexual Spiritual care concerns: No Agree to blood products: Yes Meds Home Medications and Allergies Home Medications ?Medication ?Instructions ?Recorded ?Confirmed ?Type tadalafil 20 mg tablet (Cialis) 20 mg PO DAILY PRN Erectile 06/28/19 08/24/24 History Dysfunction apixaban 5 mg tablet (Eliquis) 5 mg PO BID 06/29/19 10/18/24 History ascorbic acid (vitamin C) 500 mg 500 mg PO BID 04/14/20 10/18/24 History capsule krill oil 500 mg capsule 500 mg PO DAILY 04/14/20 10/18/24 History cholecalciferol (vitamin D3) 50 50 mcg PO DAILY 07/09/22 10/18/24 History mcg (2,000 unit) capsule coenzyme Q10 100 mg capsule (Co 100 mg PO DAILY 07/09/22 10/18/24 History Q-10) vitamin B complex (B 1 tablet PO DAILY 07/09/22 10/18/24 History Complex-Vitamin B12 tablet) umeclidinium 62.5 mcg-vilanterol 1 inh inhalation DAILY 12/02/23 10/18/24 History 25 mcg/actuation powdr for inhalation (Anoro Ellipta) diclofenac sodium 1 % topical gel 4 g topical QID PRN shoulder pain 01/16/24 08/24/24 Rx #100 grams empagliflozin 10 mg tablet 10 mg PO DAILY 03/30/24 10/18/24 History (Jardiance) trazodone 50 mg tablet See Rx Instructions .Route 05/20/24 08/24/24 Rx .COMPLEX #90 tabs omeprazole 20 mg capsule,delayed 20 mg PO DAILY 06/10/24 10/18/24 History release testosterone (AndroGel) 1 pump topical DAILY #75 grams 08/19/24 10/18/24 Rx albuterol sulfate 90 mcg/actuation See Rx Instructions .Route 10/18/24 10/18/24 Rx aerosol inhaler .COMPLEX #8.5 grams Allergies Allergy/AdvReac Type Severity Reaction Status Date / Time DICLOFENAC SODIUM AdvReac Severe SEVERE GI Uncoded 10/18/24 06:23 UPSET Vital Signs Vital Signs - 24 hr 10/18/24 06:25 Temperature 97.1 F L Pulse Rate 72 Respiratory Rate 18 Blood Pressure 133/72 Pulse Oximetry 97 Oxygen Delivery Room Air Exam Const: General: cooperative and healthy appearing Resp: Effort & Inspection: normal respiratory effort and able to speak in complete sentences Auscultation: clear to auscultation bilaterally Cardio: Rate: regular rate Rhythm: regular rhythm GI: Inspection: normal to inspection GI Palp: No No hepatosplenomegaly present Auscultation: normal bowel sounds Rectal Exam: deferred Skin: General skin exam: normal color Psych: Appearance: grossly normal Mental Status: mental status grossly normal Assessment and Plan Assessment and plan (1) History of colon cancer: Code(s): Z85.038 - Personal history of other malignant neoplasm of large intestine Status: Acute Assessment and Plan: The patient is deemed a good candidate for the procedure. Consent signed. Will proceed.
[2024-10-18] MEDS: SIMETHICONE ORAL SUSPENSION 20 MG/0.3 ML 30 ML BOTTLE 0.6 ML IRRIGATION (07:36)
[2024-10-18 07:56] VITALS: BP 98/60; PULSE 68; RESP 20; O2SAT 97
[2024-10-18 08:06] VITALS: BP 114/66; PULSE 61; RESP 20; O2SAT 95
[2024-10-18 08:16] VITALS: BP 103/60; PULSE 62; RESP 18; O2SAT 97
--- NOTE | 2024-10-18 08:18 | SUR.PHASEII ---
Patient instructed to restart Eliquis today 10/[address] West.
== END 2024-10-18 08:35 | disposition home or self-care (01) ==
PROVIDERS: PCP Family Medicine; Referring Provider Family Medicine; Visit Provider Internal Medicine Gastroenterology
PROC: 0DJD8ZZ Inspection of Lower Intestinal Tract, Via Natural or Artificial Opening Endoscopic (ICD-10-PCS; CPT 45378; principal; 2024-10-18 07:30)
DX: Z12.11 Encounter for screening for malignant neoplasm of colon (principal); D12.2 Benign neoplasm of ascending colon; D12.3 Benign neoplasm of transverse colon; D12.4 Benign neoplasm of descending colon; K57.30 Diverticulosis of large intestine without perforation or abscess without bleeding; K64.8 Other hemorrhoids; Z85.038 Personal history of other malignant neoplasm of large intestine; Z87.891 Personal history of nicotine dependence
CPT/HCPCS: 45385; 88305; J2003; J2704; J7120

== ENCOUNTER 2025-04-04 01:25 | Day surgery (SDC) | payer MEDICARE, SELFPAY ==
[2025-03-23 15:02] VITALS: BMI 22.1
--- NOTE | 2025-03-23 15:31 | PC.NURSE ---
Spoke with patient regarding medication Eliquis. Patient verbalizes understanding that the last dose is to be taken on 03/31/2025 and the Endoscopist will instruct them when to restart after the procedure.
[2025-04-04 10:42] VITALS: BP 115/71; PULSE 69; RESP 18; TEMP 36.1; O2SAT 96
[2025-04-04] MEDS: LACTATED RINGERS 1,000 ML 150 ML IV CONT (10:54)
--- NOTE | 2025-04-04 11:08 | PM.IMHP ---
H&P: HPI History of Present Illness Date/Time: 04/04/25 11:08 Chief Complaint: Dysphagia-GERD Narrative: Patient known to our service for colonoscopy in October, with a previous history of colon cancer. A few tubular adenomas were found. This time he comes complaining of several months of intermittent dysphagia, and rare episodes of heartburn which he controls with omeprazole. In 2019 he underwent an EGD with dilatation of a Schatzki ring. He is now referred for EGD. Review of Systems Review of Systems: All systems reviewed & are unremarkable except as noted in HPI and below PMFSH Past Medical History Medical History COPD (chronic obstructive pulmonary disease) TIA (transient ischemic attack) SVT (supraventricular tachycardia) CHF (congestive heart failure) <35% Emphysema of lung Episode of anxiety GERD without esophagitis Heart disease, unspecified MARLENY (obstructive sleep apnea) Presence of cardiac pacemaker Pulmonary nodules Bronchitis Surgical History Surgical History History of appendectomy History of cholecystectomy History of foot surgery bilateral plantar fasciotomy History of hernia repair History of tonsillectomy History of repair of rotator cuff right 1999, left 2003 History of arthroscopic knee surgery right 1986, left 2011 Family History Family History Grandparent Family history of heart disease in male family member before age 55, Onset Age: 78 Family history of cardiovascular disease, Onset Age: 80 Cerebrovascular accident, Onset Age: 83 Mother Family history of heart disease in male family member before age 55, Onset Age: 95 Family history of cardiovascular disease, Onset Age: 96 Patient's mother is , Onset Age: 95 Father Family history of heart disease in male family member before age 55, Onset Age: 87 Patient's father is , Onset Age: 87 Family history of Alzheimer's disease, Onset Age: 87 Cerebrovascular accident, Onset Age: 88 Macular degeneration Sibling Malignant neoplasm of prostate Patient's brother is Patient's sister is in good health Family history of cardiovascular disease Macular degeneration Social History Social History Smoking packs per day: 1 Smoking cigarettes per day: 20.0 Years smoked: 50 Smoking pack-years: 50.00 Smoking status: Former smoker Tobacco type: cigarettes Second hand tobacco smoke exposure: No Smoking end date: 12/07/02 Alcohol intake: current Drinks per week: 1 Alcohol use details: GLASS OF WINE Substance use: never Substance use type: does not use Do You Feel Safe in your Home?: Yes Lack of Transportation: No Lack of Food: Never True Current Housing: I Have Housing Concerned About Future Housing: No Difficulty Paying Gas/Electric Bills: No Difficulty Paying for Meds: No Currently Unemployed: No Education: Trade/Vocational Certificate Difficulty w/ Childcare or Family Care: No Living arrangements: alone Additional living arrangements comments: Occupation/Education: retired Gender identity (if verbalized by the patient): Male Sexual Orientation (if Verbalized by the Patient): Straight or Heterosexual Spiritual care concerns: No Agree to blood products: Yes Meds Home Medications and Allergies Home Medications ?Medication ?Instructions ?Recorded ?Confirmed ?Type tadalafil 20 mg tablet (Cialis) 20 mg PO DAILY PRN Erectile 06/28/19 03/23/25 History Dysfunction apixaban 5 mg tablet (Eliquis) 5 mg PO BID 06/29/19 04/04/25 History ascorbic acid (vitamin C) 500 mg 1,000 mg PO DAILY 04/14/20 03/23/25 History capsule cholecalciferol (vitamin D3) 50 50 mcg PO DAILY 07/09/22 03/23/25 History mcg (2,000 unit) capsule coenzyme Q10 100 mg capsule (Co 100 mg PO DAILY 07/09/22 03/23/25 History Q-10) umeclidinium 62.5 mcg-vilanterol 1 inh inhalation DAILY 12/02/23 03/23/25 History 25 mcg/actuation powdr for inhalation (Anoro Ellipta) empagliflozin 10 mg tablet 10 mg PO DAILY 03/30/24 03/23/25 History (Jardiance) trazodone 50 mg tablet See Rx Instructions .Route 11/12/24 03/23/25 Rx .COMPLEX #90 tabs furosemide 20 mg tablet (Lasix) 20 mg PO DAILY 12/06/24 03/23/25 History spironolactone 25 mg tablet 25 mg PO DAILY 12/06/24 03/23/25 History albuterol sulfate 90 mcg/actuation See Rx Instructions .Route 12/23/24 03/23/25 Rx aerosol inhaler .COMPLEX #8.5 grams omeprazole 20 mg capsule,delayed 20 mg PO DAILY #90 caps 02/21/25 03/23/25 Rx release testosterone (AndroGel) 1 pump topical DAILY #75 grams 03/14/25 03/23/25 Rx cholecalciferol (vitamin D3) 125 125 mcg PO DAILY 03/23/25 03/23/25 History mcg (5,000 unit) tablet (Vitamin D3) krill 1 cap PO DAILY 03/23/25 03/23/25 History uge-el-2-uhl-wsl-cdhvyqkwpmwmk 300 mg-90 mg-24 mg-50 mg capsule (krill oil) mecobalamin (vitamin B12) 500 mcg 500 mcg PO DAILY 03/23/25 03/23/25 History chewable tablet vitamins A,C,G-bsyf-uwuulo 4,296 1 cap PO DAILY 03/23/25 03/23/25 History mcg-226 mg-90 mg capsule (PreserVision AREDS) Allergies Allergy/AdvReac Type Severity Reaction Status Date / Time diclofenac AdvReac Severe SEVERE GI Verified 04/04/25 10:45 UPSET Vital Signs Vital Signs - 24 hr 04/04/25 10:42 Temperature 97 F L Pulse Rate 69 Respiratory Rate 18 Blood Pressure 115/71 Pulse Oximetry 96 Oxygen Delivery Room Air Exam Const: General: cooperative and healthy appearing Resp: Effort & Inspection: normal respiratory effort and able to speak in complete sentences Auscultation: clear to auscultation bilaterally Cardio: Rate: regular rate Rhythm: regular rhythm GI: Inspection: normal to inspection GI Palp: No No hepatosplenomegaly present Auscultation: normal bowel sounds Rectal Exam: deferred Skin: General skin exam: normal color Psych: Appearance: grossly normal Mental Status: mental status grossly normal Assessment and Plan Assessment and plan (1) Dysphagia: Code(s): R13.10 - Dysphagia, unspecified Status: Acute Assessment and Plan: The patient is deemed a good candidate for the procedure. Consent signed. Will proceed.
--- NOTE | 2025-04-04 11:27 | S_PTH ---
PATIENT: Marky Arroyo LOC: [facility] #:[id number] AGE/SX: 84/M ROOM: RE04/04/[address]: Carlos West MD : 1940 BED: DIS: 04/04/2025 SPEC #: [id number] RECD: 04/04/25 12:47 STATUS: WINDY REQ #: [id number] DEBBY: 04/04/25 11:[address]: Carlos West DEPT: [facility] Surgical RECD BY: Michael Lim ENTERED: 04/04/25 12:48 SP TYPE: Surgical OTHR DR: Raza Serra MD Tissues: A - Gastric Biopsy B - Gastric Biopsy Procedures: Hematoxylin and Eosin Stain Gross and Microscopic Level 4
[2025-04-04 11:32] VITALS: BP 86/46; PULSE 66; RESP 22; O2SAT 97
[2025-04-04 11:42] VITALS: BP 87/55; PULSE 64; RESP 17; O2SAT 97
[2025-04-04 11:52] VITALS: BP 103/54; PULSE 73; RESP 24; O2SAT 98
--- NOTE | 2025-04-05 07:03 | WPDANESEPPF ---
Anes - Initial Pre Proc Eval Procedure: Operation Date: 04/04/25 11:30 Proposed Procedures p Esophagogastroduodenoscopy EGD - Carlos West MD Date/Time: 04/05/25 07:03 Surgeon: Carlos West MD Pre Op Diagnosis: Dysphagia, unspecified, GERD Patient Data Age: 84 Gender: M Height: 1.75 m Weight: 65.9 kg Last Vital Signs Temp 36.1 C L 04/04/25 10:42 Pulse 73 04/04/25 11:52 Resp 24 H 04/04/25 11:52 BP 103/54 L 04/04/25 11:52 Pulse Ox 98 04/04/25 11:52 O2 Del Method Room Air 04/04/25 11:52 Allergies Allergy/AdvReac Type Severity Reaction Status Date / Time diclofenac AdvReac Severe SEVERE GI Verified 04/04/25 10:45 UPSET Home Medications ?Medication ?Instructions ?Recorded ?Confirmed ?Type tadalafil 20 mg tablet (Cialis) 20 mg PO DAILY PRN Erectile 06/28/19 03/23/25 History Dysfunction apixaban 5 mg tablet (Eliquis) 5 mg PO BID 06/29/19 04/04/25 History ascorbic acid (vitamin C) 500 mg 1,000 mg PO DAILY 04/14/20 03/23/25 History capsule cholecalciferol (vitamin D3) 50 50 mcg PO DAILY 07/09/22 03/23/25 History mcg (2,000 unit) capsule coenzyme Q10 100 mg capsule (Co 100 mg PO DAILY 07/09/22 03/23/25 History Q-10) umeclidinium 62.5 mcg-vilanterol 1 inh inhalation DAILY 12/02/23 03/23/25 History 25 mcg/actuation powdr for inhalation (Anoro Ellipta) empagliflozin 10 mg tablet 10 mg PO DAILY 03/30/24 03/23/25 History (Jardiance) trazodone 50 mg tablet See Rx Instructions .Route 11/12/24 03/23/25 Rx .COMPLEX #90 tabs furosemide 20 mg tablet (Lasix) 20 mg PO DAILY 12/06/24 03/23/25 History spironolactone 25 mg tablet 25 mg PO DAILY 12/06/24 03/23/25 History albuterol sulfate 90 mcg/actuation See Rx Instructions .Route 12/23/24 03/23/25 Rx aerosol inhaler .COMPLEX #8.5 grams omeprazole 20 mg capsule,delayed 20 mg PO DAILY #90 caps 02/21/25 03/23/25 Rx release testosterone (AndroGel) 1 pump topical DAILY #75 grams 03/14/25 03/23/25 Rx cholecalciferol (vitamin D3) 125 125 mcg PO DAILY 03/23/25 03/23/25 History mcg (5,000 unit) tablet (Vitamin D3) krill 1 cap PO DAILY 03/23/25 03/23/25 History myt-lp-4-tvy-zqz-ajymxqveblghk 300 mg-90 mg-24 mg-50 mg capsule (krill oil) mecobalamin (vitamin B12) 500 mcg 500 mcg PO DAILY 03/23/25 03/23/25 History chewable tablet vitamins A,C,B-lily-gileyl 4,296 1 cap PO DAILY 03/23/25 03/23/25 History mcg-226 mg-90 mg capsule (PreserVision AREDS) Patient hx anesthesia problems: none Family hx anesthesia problems: none Results Review: All pre-operative results and documents have been reviewed as part of the pre-operative evaluation. [facility] Past Medical History Medical History COPD (chronic obstructive pulmonary disease) TIA (transient ischemic attack) SVT (supraventricular tachycardia) CHF (congestive heart failure) <35% Emphysema of lung Episode of anxiety GERD without esophagitis Heart disease, unspecified MARLENY (obstructive sleep apnea) Presence of cardiac pacemaker Pulmonary nodules Bronchitis Surgical History Surgical History History of appendectomy History of cholecystectomy History of foot surgery bilateral plantar fasciotomy History of hernia repair History of tonsillectomy History of repair of rotator cuff right 1999, left 2003 History of arthroscopic knee surgery right 1986, left 2011 Family History Family History Grandparent Family history of heart disease in male family member before age 55, Onset Age: 78 Family history of cardiovascular disease, Onset Age: 80 Cerebrovascular accident, Onset Age: 83 Mother Family history of heart disease in male family member before age 55, Onset Age: 95 Family history of cardiovascular disease, Onset Age: 96 Patient's mother is , Onset Age: 95 Father Family history of heart disease in male family member before age 55, Onset Age: 87 Patient's father is , Onset Age: 87 Family history of Alzheimer's disease, Onset Age: 87 Cerebrovascular accident, Onset Age: 88 Macular degeneration Sibling Malignant neoplasm of prostate Patient's brother is Patient's sister is in good health Family history of cardiovascular disease Macular degeneration Social History Social History Smoking packs per day: 1 Smoking cigarettes per day: 20.0 Years smoked: 50 Smoking pack-years: 50.00 Smoking status: Former smoker Tobacco type: cigarettes Second hand tobacco smoke exposure: No Smoking end date: 12/07/02 Alcohol intake: current Drinks per week: 1 Alcohol use details: GLASS OF WINE Substance use: never Substance use type: does not use Do You Feel Safe in your Home?: Yes Lack of Transportation: No Lack of Food: Never True Current Housing: I Have Housing Concerned About Future Housing: No Difficulty Paying Gas/Electric Bills: No Difficulty Paying for Meds: No Currently Unemployed: No Education: Trade/Vocational Certificate Difficulty w/ Childcare or Family Care: No Living arrangements: alone Additional living arrangements comments: Occupation/Education: retired Gender identity (if verbalized by the patient): Male Sexual Orientation (if Verbalized by the Patient): Straight or Heterosexual Spiritual care concerns: No Agree to blood products: Yes Anes - Eval Final PreProcedure Day of Procedure 04/05/25 07:03 Patient weight: normal Heart: regular rate and rhythm Lungs: decreased breath sounds Airway: Mallampati scale class II Neurological: alert and oriented Last oral intake: >/= 8 hours ASA classification: III Emergent: no Anesthetic plan: proceed Anesthesia type and monitoring: general GIVS and standard monitoring Results Review: All pre-operative results and documents have been reviewed as part of the pre-operative evaluation. Informed Consent: The patient's anesthetic plan and its attendant risks and benefits were discussed with the patient/family/POA. Questions were solicited and answers provided to the satisfaction of the patient/family/POA.
== END 2025-04-04 12:00 | disposition home or self-care (01) ==
PROVIDERS: PCP Family Medicine; Referring Provider Family Medicine; Visit Provider Internal Medicine Gastroenterology
PROC: 0DJ08ZZ Inspection of Upper Intestinal Tract, Via Natural or Artificial Opening Endoscopic (ICD-10-PCS; CPT 43249; principal; 2025-04-04 11:30)
DX: K21.9 Gastro-esophageal reflux disease without esophagitis (principal); K22.2 Esophageal obstruction; K29.51 Unspecified chronic gastritis with bleeding; K44.9 Diaphragmatic hernia without obstruction or gangrene; I47.10 Supraventricular tachycardia, unspecified; I50.9 Heart failure, unspecified; J43.9 Emphysema, unspecified; F41.9 Anxiety disorder, unspecified; G47.33 Obstructive sleep apnea (adult) (pediatric); Z79.01 Long term (current) use of anticoagulants; Z79.84 Long term (current) use of oral hypoglycemic drugs; Z79.51 Long term (current) use of inhaled steroids; Z98.890 Other specified postprocedural states; Z90.49 Acquired absence of other specified parts of digestive tract; Z95.0 Presence of cardiac pacemaker; Z87.891 Personal history of nicotine dependence; Z85.038 Personal history of other malignant neoplasm of large intestine; Z86.73 Personal history of transient ischemic attack (TIA), and cerebral infarction without residual deficits; Z80.42 Family history of malignant neoplasm of prostate; Z82.49 Family history of ischemic heart disease and other diseases of the circulatory system
CPT/HCPCS: 43249; 43239; 88305; C1726; J2003; J2704; J7120